=== PATIENT | female | born 1945 | race Native Hawaiian/Other Pacific Islander ===

== ENCOUNTER 2016-12-12 15:26 | Emergency (ER) | payer MEDICARE ==
--- NOTE | 2016-12-12 16:43 | Emergency Department Report ---
Entered by MADDISON NOLAND, acting as scribe for MARY MCNEAL PA. Chief Complaint: Extremity Injury, Lower Stated Complaint: PAIN SEVERE PAIN IN BOTTOM LT FOOT/ANKLE/ DIABETIC Time Seen by Provider: 12/12/16 16:10 - HPI History of Present Illness: 71 y/o female presents c/o pain in the left foot that started 2 days ago. No associated Sx. Pt has been limping around, but notes no trauma to the area. - ROS Review of Systems: noted in HPI - Exam Vital Signs: Vital Signs 12/12/16 15:59 Temperature 98.4 F Pulse Rate 65 Respiratory 18 Rate Blood Pressure 203/70 O2 Sat by Pulse 98 Oximetry Physical Exam: General: 71-year-old female in no acute distress. Well-developed, well- nourished. CV: Regular rate and rhythm. Lungs: Clear to auscultation bilaterally. Left Foot: Tenderness to palpation of plantar aspect of mid foot. No deformity, erythema, edema noted. MSE screening note: Focused history and physical exam performed. Due to findings the following was ordered: ED Disposition for MSE Condition: Stable This documentation as recorded by the scribe,MADDISON NOLAND,accurately reflects the service I personally performed and the decisions made by ,MARY MCNEAL PA.
--- NOTE | 2016-12-12 18:24 | XRay Report ---
FINAL REPORT EXAM: XR FOOT 3 LT HISTORY: LT FOOT PAIN TECHNIQUE: AP, lateral, and oblique views of the left foot PRIORS: None. FINDINGS: There is no evidence for acute fracture or dislocation. No soft tissue swelling or radiopaque foreign bodies are seen. Bony mineralization is normal. Joint spaces are maintained. Large spurs are present along the plantar and posterior surfaces of the calcaneus. There also soft tissue calcification around the head of the 1st metatarsal, likely due to remote tendon trauma IMPRESSION: No acute soft tissue or bony abnormality noted.
[2016-12-12] MEDS ORDERED: CATAPRES PO ONE (19:15)
[2016-12-12 21:27] VITALS: BP 168/65
--- NOTE | 2016-12-12 21:31 | Emergency Department Report ---
Entered by MADDISON NOLAND, acting as scribe for MARY MCNEAL PA. ED Extremity Problem HPI - General Chief complaint: Extremity Injury, Lower Stated complaint: PAIN SEVERE PAIN IN BOTTOM LT FOOT/ANKLE/ DIABETIC Time Seen by Provider: 12/12/16 16:43 Source: patient Mode of arrival: Ambulatory Limitations: Other - History of Present Illness Initial comments: 71 y/o female (deaf, accompanied by daughter for communication) presents today c /o 6/10 constant, achy pain in the left foot that started 2 days ago. Pain is worsened by pressure. She notes no additional Sx. Pt has been limping around, but states there was no trauma to the left foot. Denies fever, chills, nausea, vomiting, chest pain, shortness of breath, abdominal pain. She notes taking no medication. No Hx of previous injuries to left foot. No additional Sx MD Complaint: extremity pain (left foot) -: days(s) (2) Location: left (foot) History of Same: No -: No fever Severity scale (0 -10): 6 Quality: aching Consistency: constant Improves with: nothing Worsens with: other (pressure) Associated Symptoms: denies other symptoms - Related Data Previous Rx's Medication Instructions Recorded Last Taken Type Azithromycin [Zithromax Z-SWATI] 250 mg PO DAILY #6 tablet 10/05/13 Unknown Rx Naproxen [Naprosyn] 500 mg PO BID #30 tablet 12/12/16 Unknown Rx Allergies Allergy/AdvReac Type Severity Reaction Status Date / Time No Known Allergies Allergy Unverified 10/04/13 18:50 ED Review of Systems Comment: All other systems reviewed and negative Constitutional: denies: chills, fever, malaise Eyes: denies: eye pain ENT: denies: ear pain, throat pain, congestion Respiratory: denies: cough, shortness of breath, wheezing Cardiovascular: denies: chest pain Endocrine: no symptoms reported Gastrointestinal: denies: abdominal pain, nausea, vomiting Neurological: denies: headache, weakness, numbness, paresthesias ED Past Medical Hx - Past Medical History Previous Medical History?: Yes Hx Hypertension: Yes Hx Diabetes: Yes - Surgical History Past Surgical History?: Yes Additional Surgical History: Hysterectomy - Social History Smoking Status: Never Smoker Substance Use Type: Non Opiate Pain, Prescribed - Medications Home Medications: Home Medications Medication Instructions Recorded Confirmed Last Taken Type Azithromycin [Zithromax Z-SWATI] 250 mg PO DAILY #6 tablet 10/05/13 Unknown Rx Naproxen [Naprosyn] 500 mg PO BID #30 tablet 12/12/16 Unknown Rx ED Physical Exam - General Limitations: Other - Other Other exam information: GENERAL: The patient is well-developed and well-nourished. Patient is in NAD. HEAD: Normocephalic. Atraumatic. CHEST/LUNGS: Clear to auscultation throughout. HEART/CARDIOVASCULAR: Regular rate and rhythm. No murmurs, rubs or gallops. ABDOMEN: Abdomen is soft, nontender. No guarding or rebound tenderness. Left Foot: Tenderness to palpation of plantar aspect of mid foot. No deformity, erythema, edema noted. Full range of motion of ankle and digits. Peripheral pulses intact. Capillary refill less than 2 seconds. NEURO: Alert and oriented x 3. ED Course Vital Signs 12/12/16 12/12/16 12/12/16 15:59 16:24 19:32 Temperature 98.4 F Pulse Rate 65 112 H 57 L Respiratory 18 Rate Blood Pressure 203/70 202/63 Blood Pressure 188/64 [Left] O2 Sat by Pulse 98 Oximetry 12/12/16 12/12/16 20:54 21:25 Temperature 98.1 F 98.1 F Pulse Rate 53 L 60 Respiratory 18 18 Rate Blood Pressure Blood Pressure 172/65 168/65 [Left] O2 Sat by Pulse 97 98 Oximetry ED Medical Decision Making - Lab Data Vital Signs 12/12/16 12/12/16 12/12/16 15:59 16:24 19:32 Temperature 98.4 F Pulse Rate 65 112 H 57 L Respiratory 18 Rate Blood Pressure 203/70 202/63 Blood Pressure 188/64 [Left] O2 Sat by Pulse 98 Oximetry 12/12/16 12/12/16 20:54 21:25 Temperature 98.1 F 98.1 F Pulse Rate 53 L 60 Respiratory 18 18 Rate Blood Pressure Blood Pressure 172/65 168/65 [Left] O2 Sat by Pulse 97 98 Oximetry Daughter states that the patient's blood pressure remains quite elevated lately and she has a follow-up appointment with her primary care provider in 10 days. Emphasized the importance of follow-up. - Radiology Data Radiology results: report reviewed EXAM: XR FOOT 3 LT HISTORY: LT FOOT PAIN TECHNIQUE: AP, lateral, and oblique views of the left foot PRIORS: None. FINDINGS: There is no evidence for acute fracture or dislocation. No soft tissue swelling or radiopaque foreign bodies are seen. Bony mineralization is normal. Joint spaces are maintained. Large spurs are present along the plantar and posterior surfaces of the calcaneus. There also soft tissue calcification around the head of the 1st metatarsal, likely due to remote tendon trauma IMPRESSION: No acute soft tissue or bony abnormality noted. - Medical Decision Making 71 y/o female presents c/o constant, achy pain in the left foot that started 2 days ago. Her x-ray results revealed no acute soft tissue or bony abnormality. Large spurs are present along the plantar and posterior surfaces of the calcaneus. There also soft tissue calcification around the head of the first metatarsal, likely due to remote tendon trauma. She has been provided with a referral for orthopedic. Patient is in no acute distress at this time. She will be discharged home and is encouraged to follow up with a primary care provider. She will be sent home on naproxen and is encouraged to return to the emergency room for any worsening symptoms. Emphasized the importance of follow up with primary care physician and explained to patient/family that uncontrolled hypertension can lead to long- term complications of hypertension/elevated blood pressure including stroke, heart attack, disability, , paralysis, permanent loss of quality of life. Patient/family expressed understanding. ED Disposition Clinical Impression: Foot pain Qualifiers: Laterality: right Qualified Code(s): M79.671 - Pain in right foot HTN (hypertension) Qualifiers: Hypertension type: essential hypertension Qualified Code(s): I10 - Essential ( primary) hypertension Disposition: DISCHARGED TO HOME OR SELFCARE Is pt being admited?: No Does the pt Need Aspirin: No Condition: Stable Instructions: Plantar Fasciitis (ED), Foot Sprain (ED), Hypertension (ED) Additional Instructions: Follow-up with primary care provider and orthopedic. Return to the emergency department if symptoms worsen. Prescriptions: Naproxen [Naprosyn] 500 mg PO BID #30 tablet Referrals: RADHA ALFONSO MD [Primary Care Provider] - 3-5 Days ESTER LOVE MD [Staff Physician] - 3-5 Days Forms: Work/School Release Form(ED) Time of Disposition: 18:54 This documentation as recorded by the scribe,NUZHAT,MADDISON,accurately reflects the service I personally performed and the decisions made by ,MARY MCNEAL PA.
== END 2016-12-12 21:38 | disposition home or self-care (01) ==
LOC: ED 15:26
DX: M79.671 Pain in right foot (principal); I10 Essential (primary) hypertension; E11.9 Type 2 diabetes mellitus without complications; Z90.710 Acquired absence of both cervix and uterus

== ENCOUNTER 2017-08-03 06:47 | Inpatient (IN) | payer MEDICARE ==
[2017-08-03 08:01] LABS: Basophils % (Auto) 0.4 % (0.0-1.8); Eosinophils % (Auto) 2.4 % (0.0-4.3); Hematocrit 41.8 % (30.3-42.9); Mean Corpuscular HGB Conc 34 % (30-34); Mean Corpuscular Hemoglobin 30 pg (28-32); Mean Corpuscular Volume 90 fl (79-97); Platelet Count 130 K/mm3 (140-440); Red Blood Count 4.65 M/mm3 (3.65-5.03); Red Cell Distribution Width 13.7 % (13.2-15.2); White Blood Count 4.9 K/mm3 (4.5-11.0)
[2017-08-03 08:02] LABS: Anion Gap 18 mmol/L; BUN/Creatinine Ratio 19; Blood Urea Nitrogen 15 mg/dL (7-17); Calcium 9.1 mg/dL (8.4-10.2); Carbon Dioxide 28 mmol/L (22-30); Chloride 98.1 mmol/L (98-107); Glucose 343 mg/dL (65-100); Potassium 4.1 mmol/L (3.6-5.0); Sodium 140 mmol/L (137-145)
[2017-08-03] MEDS ORDERED: NITROSTAT SL PRN (11:01)
[2017-08-03] MEDS ORDERED: NACL 0.9% 250ML 250 ML IV ONE (11:01)
--- NOTE | 2017-08-03 11:01 | Emergency Department Report ---
ED General Adult HPI - General Chief complaint: Chest Pain Stated complaint: CHEST PAIN Time Seen by Provider: 08/03/17 10:49 Source: family, RN notes reviewed Mode of arrival: Ambulatory Limitations: Other (the patient is deaf, she only speaks Faroese, cannot speaks sign language) - History of Present Illness Initial comments: Patient is accompanied by her daughter, who requests that she translated for the patient. Patient can only write in Faroese, and she is very hard of hearing. Patient does not speak sign language. Patient's daughter specifically declines toucher up, as she reports that she is really the only person who can communicate effectively with the patient. This is a 72-year-old female who was previously unknown to this provider. Her primary care doctor is Dr. Trevino, she has a history of hypertension and diabetes. The patient is brought to the hospital by her daughter for evaluation of chest pain. She started indicates the patient's chest pain is central. She is not sure if it radiates anywhere. She cannot describe exacerbating or relieving factors, with the exception of coughing which increases the chest pain. Patient's daughter reports no recent travel, no recent surgeries, no leg pain, no leg swelling. As far as the daughter knows, there is no vomiting, diaphoresis, or severe shortness of breath. No recent cardiac risk stratification as far as the daughter knows. -: days(s) Location: chest Radiation: other (per hpi) Severity scale (0 -10): 10 Consistency: other (per hpi) Improves with: other (per hpi) Worsens with: other (per hpi) Associated Symptoms: chest pain, cough. denies: nausea/vomiting, seizure - Related Data Home Medications Medication Instructions Recorded Confirmed Last Taken Lisinopril [Zestril TAB] 40 mg PO QDAY 08/03/17 08/03/17 08/02/17 Spironolactone [Aldactone] 25 mg PO QDAY 08/03/17 08/03/17 08/02/17 amLODIPine [Norvasc] 10 mg PO DAILY 08/03/17 08/03/17 08/02/17 glipiZIDE [Glipizide] 5 mg PO DAILY 08/03/17 08/03/17 08/02/17 Allergies Allergy/AdvReac Type Severity Reaction Status Date / Time No Known Allergies Allergy Unverified 10/04/13 18:50 ED Review of Systems ROS: Stated complaint: CHEST PAIN Other details as noted in HPI Comment: per daughter Constitutional: denies: fever Eyes: denies: eye discharge ENT: denies: congestion Respiratory: cough Cardiovascular: chest pain Gastrointestinal: denies: nausea Genitourinary: as per HPI Musculoskeletal: as per HPI Skin: as per HPI Neurological: as per HPI Psychiatric: as per HPI ED Past Medical Hx - Past Medical History Hx Hypertension: Yes Hx Diabetes: Yes - Surgical History Additional Surgical History: Hysterectomy - Social History Smoking Status: Never Smoker Substance Use Type: None - Medications Home Medications: Home Medications Medication Instructions Recorded Confirmed Last Taken Type Lisinopril [Zestril TAB] 40 mg PO QDAY 08/03/17 08/03/17 08/02/17 History Spironolactone [Aldactone] 25 mg PO QDAY 08/03/17 08/03/17 08/02/17 History amLODIPine [Norvasc] 10 mg PO DAILY 08/03/17 08/03/17 08/02/17 History glipiZIDE [Glipizide] 5 mg PO DAILY 08/03/17 08/03/17 08/02/17 History ED Physical Exam - General Limitations: Language Barrier General appearance: alert, in no apparent distress - Head Head exam: Present: atraumatic, normocephalic - Eye Eye exam: Present: normal appearance, EOMI - ENT ENT exam: Present: normal exam, normal orophraynx, mucous membranes moist, normal external ear exam - Neck Neck exam: Present: normal inspection, full ROM - Respiratory Respiratory exam: Present: normal lung sounds bilaterally. Absent: respiratory distress - Cardiovascular Cardiovascular Exam: Present: regular rate, normal rhythm, normal heart sounds. Absent: systolic murmur, diastolic murmur, rubs, gallop - GI/Abdominal GI/Abdominal exam: Present: soft, normal bowel sounds. Absent: distended, tenderness, guarding, rebound, rigid, pulsatile mass - Extremities Exam Extremities exam: Present: normal inspection, full ROM, normal capillary refill. Absent: pedal edema, joint swelling, calf tenderness - Back Exam Back exam: Present: normal inspection, full ROM. Absent: tenderness, CVA tenderness (R), paraspinal tenderness, vertebral tenderness - Neurological Exam Neurological exam: Present: alert, normal gait, other (Extraocular movements intact. Tongue midline. No facial droop. Facial sensation intact to light touch in the V1, V2, V3 distribution bilaterally. 5 and 5 strength in 4 extremities.. Sensation is intact to light touch in 4 extremities.). Absent: motor sensory deficit - Psychiatric Psychiatric exam: Present: normal affect, normal mood - Skin Skin exam: Present: warm, dry, intact, normal color. Absent: rash ED Course Vital Signs 08/03/17 08/03/17 08/03/17 06:57 07:00 07:03 Temperature 98.2 F 98.2 F 98.2 F Pulse Rate 55 L 55 L Respiratory 16 16 16 Rate Blood Pressure 193/60 193/60 Blood Pressure 193/60 [Right] O2 Sat by Pulse 98 98 Oximetry 08/03/17 11:14 Temperature 98.4 F Pulse Rate 68 Respiratory 16 Rate Blood Pressure Blood Pressure 117/53 [Right] O2 Sat by Pulse 98 Oximetry ED Medical Decision Making - Lab Data Result diagrams: 08/03/17 13:50 08/03/17 07:28 Vital Signs 08/03/17 08/03/17 08/03/17 06:57 07:00 07:03 Temperature 98.2 F 98.2 F 98.2 F Pulse Rate 55 L 55 L Respiratory 16 16 16 Rate Blood Pressure 193/60 193/60 Blood Pressure 193/60 [Right] O2 Sat by Pulse 98 98 Oximetry 08/03/17 11:14 Temperature 98.4 F Pulse Rate 68 Respiratory 16 Rate Blood Pressure Blood Pressure 117/53 [Right] O2 Sat by Pulse 98 Oximetry Lab Results 08/03/17 08/03/17 08/03/17 Range/Units 07:28 07:28 07:28 WBC 4.9 (4.5-11.0) K/mm3 RBC 4.65 (3.65-5.03) M/mm3 Hgb 14.0 (10.1-14.3) gm/dl Hct 41.8 (30.3-42.9) % MCV 90 (79-97) fl MCH 30 (28-32) pg MCHC 34 (30-34) % RDW 13.7 (13.2-15.2) % Plt Count 130 L (140-440) K/mm3 Lymph % (Auto) 19.7 (13.4-35.0) % [place] % (Auto) 5.7 (0.0-7.3) % Eos % (Auto) 2.4 (0.0-4.3) % Baso % (Auto) 0.4 (0.0-1.8) % Lymph # 1.0 L (1.2-5.4) K/mm3 [place] # 0.3 (0.0-0.8) K/mm3 Eos # 0.1 (0.0-0.4) K/mm3 Baso # 0.0 (0.0-0.1) K/mm3 Seg Neutrophils % 71.8 H (40.0-70.0) % Seg Neutrophils # 3.5 (1.8-7.7) K/mm3 D-Dimer (0-234) ng/mlDDU Sodium 140 (137-145) mmol/L Potassium 4.1 (3.6-5.0) mmol/L Chloride 98.1 (98-107) mmol/L Carbon Dioxide 28 (22-30) mmol/L Anion Gap 18 mmol/L BUN 15 (7-17) mg/dL Creatinine 0.8 (0.7-1.2) mg/dL Estimated GFR > 60 ml/min BUN/Creatinine Ratio 19 % Glucose 343 H (65-100) mg/dL POC Glucose (70-105) Calcium 9.1 (8.4-10.2) mg/dL Troponin T 0.012 (0.00-0.029) ng/mL NT-Pro-B Natriuret Pep 724.3 (0-900) pg/mL 08/03/17 08/03/17 08/03/17 Range/Units 10:18 12:00 13:13 WBC (4.5-11.0) K/mm3 RBC (3.65-5.03) M/mm3 Hgb (10.1-14.3) gm/dl Hct (30.3-42.9) % MCV (79-97) fl MCH (28-32) pg MCHC (30-34) % RDW (13.2-15.2) % Plt Count (140-440) K/mm3 Lymph % (Auto) (13.4-35.0) % [place] % (Auto) (0.0-7.3) % Eos % (Auto) (0.0-4.3) % Baso % (Auto) (0.0-1.8) % Lymph # (1.2-5.4) K/mm3 [place] # (0.0-0.8) K/mm3 Eos # (0.0-0.4) K/mm3 Baso # (0.0-0.1) K/mm3 Seg Neutrophils % (40.0-70.0) % Seg Neutrophils # (1.8-7.7) K/mm3 D-Dimer 215.42 (0-234) ng/mlDDU Sodium (137-145) mmol/L Potassium (3.6-5.0) mmol/L Chloride (98-107) mmol/L Carbon Dioxide (22-30) mmol/L Anion Gap mmol/L BUN (7-17) mg/dL Creatinine (0.7-1.2) mg/dL Estimated GFR ml/min BUN/Creatinine Ratio % Glucose (65-100) mg/dL POC Glucose 359 H (70-105) Calcium (8.4-10.2) mg/dL Troponin T 0.011 (0.00-0.029) ng/mL NT-Pro-B Natriuret Pep (0-900) pg/mL 08/03/17 08/03/17 Range/Units 13:50 13:54 WBC 6.1 (4.5-11.0) K/mm3 RBC 4.62 (3.65-5.03) M/mm3 Hgb 13.8 (10.1-14.3) gm/dl Hct 40.9 (30.3-42.9) % MCV 89 (79-97) fl MCH 30 (28-32) pg MCHC 34 (30-34) % RDW 14.0 (13.2-15.2) % Plt Count 140 (140-440) K/mm3 Lymph % (Auto) 18.0 (13.4-35.0) % [place] % (Auto) 5.9 (0.0-7.3) % Eos % (Auto) 1.4 (0.0-4.3) % Baso % (Auto) 0.5 (0.0-1.8) % Lymph # 1.1 L (1.2-5.4) K/mm3 [place] # 0.4 (0.0-0.8) K/mm3 Eos # 0.1 (0.0-0.4) K/mm3 Baso # 0.0 (0.0-0.1) K/mm3 Seg Neutrophils % 74.2 H (40.0-70.0) % Seg Neutrophils # 4.5 (1.8-7.7) K/mm3 D-Dimer (0-234) ng/mlDDU Sodium (137-145) mmol/L Potassium (3.6-5.0) mmol/L Chloride (98-107) mmol/L Carbon Dioxide (22-30) mmol/L Anion Gap mmol/L BUN (7-17) mg/dL Creatinine (0.7-1.2) mg/dL Estimated GFR ml/min BUN/Creatinine Ratio % Glucose (65-100) mg/dL POC Glucose 194 H (70-105) Calcium (8.4-10.2) mg/dL Troponin T (0.00-0.029) ng/mL NT-Pro-B Natriuret Pep (0-900) pg/mL - EKG Data -: EKG Interpreted by Me - EKG Data 08/03/17 14:19 Sinus, 67 bpm, prolonged QTC, high left ventricular voltage, not morphologically consistent with ST elevation myocardial infarction, motion artifact noted in the lateral leads. - Radiology Data Radiology results: report reviewed, image reviewed CT scan of the chest is negative for pneumonia, pulmonary embolus, Significant findings - Medical Decision Making Differential diagnosis, including without limited to: Bronchitis, costochondritis, pneumonia, acute coronary syndrome, pulmonary embolus Assessment and plan: 72-year-old female with chest pain. History limited secondary to multiple issues. Therefore, it is difficult to cough lipase on the patient's story whether or not she is low risk by well's criteria, and whether or not she is low risk by heart score. Objectively speaking she is hypertensive with an abnormal EKG, and negative troponin. CT scan of the chest was negative. Troponin negative. Given her advanced age, medical comorbidities , uncertainty regarding clinical history, patient will be admitted for an acute coronary syndrome risk stratification. Patient presented to the Hospital physician, Dr. Peoples accept the patient to the hospital for cardiac or certification. Critical care attestation.: If time is entered above; I have spent that time in minutes in the direct care of this critically ill patient, excluding procedure time. ED Disposition Clinical Impression: Chest pain Disposition: DC OP ADMIT IP TO THIS HOSP Is pt being admited?: Yes Does the pt Need Aspirin: Yes Condition: Good
--- NOTE | 2017-08-03 12:16 | Cat Scan Report ---
CT angiography of the chest including 3-D reconstructed images. History: Chest pain. Findings: There is no evidence of pulmonary emboli. The lungs are clear. There is no pleural fluid. Impression: No evidence of pulmonary emboli or other significant findings.
--- NOTE | 2017-08-03 12:56 | History and Physical Report ---
History of Present Illness Chief complaint: Mom said her chest hurts History of present illness: 72 YO Female with HTN, DM presents to ED for evaluation. Pt is unable to provide history, but daughter is at bedside during exam and interview. As per daughter, patient has experienced pain in her chest for the past 2 days with worsening symptoms over the past 8 hours. Pain is 10/10, substernal, intermittent, worse with exertion, relieved with rest, not associated with shortness of breath, but is worsened with coughing. No reports of fever, chills , palpitations, NVD, Syncope, loss of bowel/bladder continence, prolonged travel /immobility, individual/family history of DVT/PE, prodective cough, or recent ill contacts. Pt seen and evaluated in ED and found to have symptoms consistent with suspected ACS. Pt daughter states that she is the only person who can effectively communicate with her mother. Past History Past Medical History: diabetes, hypertension Past Surgical History: hysterectomy Social history: , lives with family. denies: smoking, alcohol abuse, prescription drug abuse, IV drug use Family history: no significant family history (reviewed) Medications and Allergies Allergies Allergy/AdvReac Type Severity Reaction Status Date / Time No Known Allergies Allergy Unverified 10/04/13 18:50 Home Medications Medication Instructions Recorded Confirmed Last Taken Type Lisinopril [Zestril TAB] 40 mg PO QDAY 08/03/17 08/03/17 08/02/17 History Spironolactone [Aldactone] 25 mg PO QDAY 08/03/17 08/03/17 08/02/17 History amLODIPine [Norvasc] 10 mg PO DAILY 08/03/17 08/03/17 08/02/17 History glipiZIDE [Glipizide] 5 mg PO DAILY 08/03/17 08/03/17 08/02/17 History Active Meds: Active Medications Nitroglycerin (Nitrostat) 0.4 mg SL .Q5MIN PRN PRN Reason: Chest Pain Review of Systems Constitutional: no weight loss, no weight gain, no fever, no chills Ears, nose, mouth and throat: no ear pain, no ear discharge, no tinnitis, no decreased hearing, no nose pain, no nasal congestion, no nasal discharge Breasts: no change in shape, no swelling, no mass Cardiovascular: chest pain, no orthopnea, no palpitations, no rapid/irregular heart beat, no lightheadedness, no shortness of breath Respiratory: cough, no excessive sputum, no hemoptysis, no shortness of breath, no dyspnea on exertion Gastrointestinal: no abdominal pain, no nausea, no vomiting, no diarrhea, no constipation Genitourinary Female: no pelvic pain, no flank pain, no menorrhagia, no dysuria Rectal: no pain, no incontinence, no bleeding Musculoskeletal: no neck stiffness, no neck pain, no shooting arm pain, no arm numbness/tingling, no low back pain, no shooting leg pain Integumentary: no rash, no pruritis, no redness, no sores, no wounds, no jaundice Neurological: no transient paralysis, no paralysis, no weakness, no parathesias , no numbness, no tingling Psychiatric: no memory loss, no change in sleep habits, no sleep disturbances, no insomnia, no hypersomnia, no change in appetite Endocrine: no cold intolerance, no heat intolerance, no polyphagia, no excessive thirst, no polydipsia, no polyuria Hematologic/Lymphatic: no easy bruising, no easy bleeding Allergic/Immunologic: no urticaria, no allergic rhinitis, no wheezing Exam - Constitutional Vitals: Temp Pulse Resp BP Pulse Ox 98.4 F 68 16 117/53 98 08/03/17 11:14 08/03/17 11:14 08/03/17 11:14 08/03/17 11:14 08/03/17 11:14 General appearance: Present: mild distress - EENT Eyes: Present: PERRL ENT: hearing intact, clear oral mucosa - Neck Neck: Present: supple, normal ROM - Respiratory Respiratory effort: normal Respiratory: bilateral: CTA - Cardiovascular Heart Sounds: Present: S1 & S2. Absent: rub, click - Extremities Extremities: pulses symmetrical, No edema Peripheral Pulses: within normal limits - Abdominal General gastrointestinal: Present: soft, non-tender, non-distended, normal bowel sounds Female genitourinary: Present: normal - Integumentary Integumentary: Present: clear, warm, dry - Musculoskeletal Musculoskeletal: gait normal, strength equal bilaterally - Psychiatric Psychiatric: appropriate mood/affect, intact judgment & insight - Neurologic Neurologic: CNII-XII intact, moves all extremities Results - Labs CBC & Chem 7: 08/03/17 13:50 08/03/17 13:50 Labs: Abnormal lab results 08/03/17 08/03/17 08/03/17 Range/Units 07:28 07:28 12:00 Plt Count 130 L (140-440) K/mm3 Lymph # 1.0 L (1.2-5.4) K/mm3 Seg Neutrophils % 71.8 H (40.0-70.0) % Glucose 343 H (65-100) mg/dL POC Glucose 359 H (70-105) Assessment and Plan - Patient Problems (1) ACS (acute coronary syndrome) Current Visit: Yes Status: Suspected Plan to address problem: Chest Pain protocol: Serial cardiac enzymes, EKG, telemetry, echo, stress test, cardiology consult, oxygen, morphine for pain, nitro tabs, aspirin, (2) HTN (hypertension) Current Visit: Yes Status: Acute Plan to address problem: Monitor BP q shift, continue medical management. (3) Diabetes Current Visit: Yes Status: Acute Plan to address problem: ADA diet, insulin, accu check (4) DVT prophylaxis Current Visit: Yes Status: Acute
[2017-08-03] MEDS ORDERED: TYLENOL PO PRN (12:59)
[2017-08-03] MEDS ORDERED: PROVENTIL IH PRN (12:59)
[2017-08-03] MEDS ORDERED: MORPHINE IV PRN (12:59)
[2017-08-03] MEDS ORDERED: MILK OF MAGNESIA PO PRN (12:59)
[2017-08-03] MEDS ORDERED: DULCOLAX PR PRN (12:59)
[2017-08-03] MEDS ORDERED: ZOFRAN IV PRN (12:59)
[2017-08-03] MEDS ORDERED: SODIUM CHLORIDE FLUSH SYRINGE 10 ML IV PRN (12:59)
[2017-08-03] MEDS ORDERED: BABY ASPIRIN PO STA ×2 (12:59→14:19)
[2017-08-03 14:09] LABS: Basophils % (Auto) 0.5 % (0.0-1.8); Eosinophils % (Auto) 1.4 % (0.0-4.3); Hematocrit 40.9 % (30.3-42.9); Hemoglobin 13.8 gm/dl (10.1-14.3); Mean Corpuscular HGB Conc 34 % (30-34); Mean Corpuscular Hemoglobin 30 pg (28-32); Mean Corpuscular Volume 89 fl (79-97); Platelet Count 140 K/mm3 (140-440); Red Blood Count 4.62 M/mm3 (3.65-5.03); White Blood Count 6.1 K/mm3 (4.5-11.0)
[2017-08-03 14:22] LABS: Anion Gap 18 mmol/L; BUN/Creatinine Ratio 21; Blood Urea Nitrogen 15 mg/dL (7-17); Calcium 8.8 mg/dL (8.4-10.2); Carbon Dioxide 27 mmol/L (22-30); Glucose 183 mg/dL (65-100); Potassium 3.8 mmol/L (3.6-5.0); Sodium 141 mmol/L (137-145)
--- NOTE | 2017-08-03 15:58 | Consultation ---
History of Present Illness Consult date: 08/03/17 Requesting physician: CAMRON ALVARADO Consult reason: other ("acs") History of present illness: Pt is a 72 YO female with a past medical history significant for HTN and DM. Pt is previously unknown to our practice. Pt is hearing impaired and writes only Nepalese and is accompanied by her daughter, who requests that she translate for the patient. Pt presented with c/o chest pain for the past 6-7 days and SOB since this AM. Pt describes her chest pain as a nonexertional, nonradiating, midsternal and right-sided aching which is aggravated by palpation of the chest wall and by coughing. Pt's daughter also reports that for the past 1 week, the pt has had some difficulty eating and drinking - she develops "coughing spells" every time she tries to eat or drink. Pt denies any n/v, diaphoresis, dizziness or syncope. Pt denies any prior cardiac history or cardiac evaluation. Past History Past Medical History: diabetes, hypertension Social history: , lives with family. denies: smoking, alcohol abuse, prescription drug abuse Family history: no significant family history Medications and Allergies Allergies Allergy/AdvReac Type Severity Reaction Status Date / Time No Known Allergies Allergy Unverified 10/04/13 18:50 Home Medications Medication Instructions Recorded Confirmed Last Taken Type Lisinopril [Zestril TAB] 40 mg PO QDAY 08/03/17 08/03/17 08/02/17 History Spironolactone [Aldactone] 25 mg PO QDAY 08/03/17 08/03/17 08/02/17 History amLODIPine [Norvasc] 10 mg PO DAILY 08/03/17 08/03/17 08/02/17 History glipiZIDE [Glipizide] 5 mg PO DAILY 08/03/17 08/03/17 08/02/17 History Active Meds: Active Medications Acetaminophen (Tylenol) 650 mg PO Q4H PRN PRN Reason: Pain MILD(1-3)/Fever >100.5/SIMMONS Albuterol (Proventil) 2.5 mg IH Q4HRT PRN PRN Reason: Shortness Of Breath Bisacodyl (Dulcolax) 10 mg [place] QDAY PRN PRN Reason: Constipation unrelieved by MOM Famotidine (Pepcid) 20 mg PO BID BEAU Magnesium Hydroxide (Milk Of Magnesia) 30 ml PO Q4H PRN PRN Reason: Constipation Morphine Sulfate (Morphine) 1 mg IV Q4H PRN PRN Reason: Pain, Moderate (4-6) Nitroglycerin (Nitrostat) 0.4 mg SL .Q5MIN PRN PRN Reason: Chest Pain Ondansetron HCl (Zofran) 4 mg IV Q8H PRN PRN Reason: N/V unrelieved by Reglan Sodium Chloride (Sodium Chloride Flush Syringe 10 Ml) 10 ml IV PRN PRN PRN Reason: LINE FLUSH Review of Systems Constitutional: no weight loss, no weight gain, no fever, no chills, no sweats Ears, nose, mouth and throat: no ear pain, no nose pain, no sinus pressure, no sinus pain Cardiovascular: chest pain, shortness of breath, high blood pressure, no orthopnea, no palpitations, no rapid/irregular heart beat, no edema, no syncope , no lightheadedness, no dyspnea on exertion, no paroxysmal nocturnal dyspnea, no leg edema Respiratory: cough, shortness of breath, pain on inspiration, no cough with sputum, no dyspnea on exertion, no congestion, no wheezing Gastrointestinal: no abdominal pain, no nausea, no vomiting, no diarrhea, no constipation, no change in bowel habits Genitourinary Female: no pelvic pain, no flank pain, no dysuria, no urinary frequency, no urgency Musculoskeletal: no neck stiffness, no neck pain, no shooting arm pain, no arm numbness/tingling, no low back pain, no shooting leg pain, no leg numbness/ tingling, no redness of joints Integumentary: no rash, no pruritis, no redness, no sores, no wounds Neurological: no head injury, no paralysis, no weakness, no parathesias, no numbness, no tingling, no seizures, no syncope Psychiatric: no anxiety Endocrine: no cold intolerance, no heat intolerance Hematologic/Lymphatic: no easy bruising, no easy bleeding, no lymphadenopathy Allergic/Immunologic: no urticaria, no wheezing, no persistent infections Physical Examination Vital Signs Temp Resp BP 98.2 F 16 193/60 08/03/17 06:57 08/03/17 06:57 08/03/17 06:57 General appearance: no acute distress HEENT: Positive: PERRL, Normocephaly, Mucus Membranes Moist Neck: Positive: neck supple, trachea midline Cardiac: Positive: Reg Rate and Rhythm, S1/S2 Lungs: Positive: clear to auscultation Neuro: Positive: Grossly Intact Abdomen: Positive: Unremarkable, Soft, Active Bowel Sounds. Negative: Tender Skin: Positive: Clear. Negative: Rash, Wound Musculoskeletal: No Fluid Collection, No Pain, Normal Range of Motion Extremities: Absent: edema Results 08/03/17 13:50 08/03/17 13:50 CBC 08/03/17 08/03/17 Range/Units 07:28 13:50 WBC 4.9 6.1 (4.5-11.0) K/mm3 RBC 4.65 4.62 (3.65-5.03) M/mm3 Hgb 14.0 13.8 (10.1-14.3) gm/dl Hct 41.8 40.9 (30.3-42.9) % Plt Count 130 L 140 (140-440) K/mm3 Lymph # 1.0 L 1.1 L (1.2-5.4) K/mm3 [place] # 0.3 0.4 (0.0-0.8) K/mm3 Eos # 0.1 0.1 (0.0-0.4) K/mm3 Baso # 0.0 0.0 (0.0-0.1) K/mm3 Comprehensive Metabolic Panel 08/03/17 08/03/17 Range/Units 07:28 13:50 Sodium 140 141 (137-145) mmol/L Potassium 4.1 3.8 (3.6-5.0) mmol/L Chloride 98.1 100.0 (98-107) mmol/L Carbon Dioxide 28 27 (22-30) mmol/L BUN 15 15 (7-17) mg/dL Creatinine 0.8 0.7 (0.7-1.2) mg/dL Glucose 343 H 183 H (65-100) mg/dL Calcium 9.1 8.8 (8.4-10.2) mg/dL - Imaging and Cardiology Echo: pending EKG: report reviewed, image reviewed EKG interpretations - Telemetry EKG Rhythm: Sinus Rhythm - EKG Sinus rhythms and dysrhythmias: sinus rhythm Additional Comments: t-wave inversions in lateral leads, unchanged from prior ECG in 2013 Assessment and Plan Obtain echo. Proceed with lexiscan MPI stress test in AM. Consider GI consultation given pt's difficulty with PO intake for the past 1 week per pt's daughter. The patient has been seen in conjunction with Dr. Montes who agrees with the assessment and plan of care. - Patient Problems (1) Chest pain, atypical Current Visit: Yes Status: Acute (2) Diabetes Current Visit: Yes Status: Chronic (3) HTN (hypertension) Current Visit: Yes Status: Chronic (4) Abnormal ECG Current Visit: Yes Status: Chronic
[2017-08-03] MEDS ORDERED: D50W (25GM) Syringe IV PRN (18:13)
[2017-08-03] MEDS ORDERED: D50W (25GM) Vial IV PRN (19:00)
[2017-08-03] MEDS: PEPCID PO SCH (21:08)
[2017-08-03] MEDS: NOVOLOG SUB-Q SCH (23:00)
[2017-08-04] MEDS ORDERED: LEXISCAN IV ONE ×2 (08:24→09:00)
[2017-08-04] MEDS: NOVOLOG SUB-Q SCH ×4 (10:29→22:05)
--- NOTE | 2017-08-04 11:03 | Event Note ---
Date: 08/04/17 Patient off of the floor for stress test. Full consult to follow when pt is available, however will go ahead and order speech eval and modified barium swallow for c/o coughing with eating and drinking.
--- NOTE | 2017-08-04 11:43 | Progress Note ---
Assessment and Plan S/p lexiscan MPI stress test this AM which was negative for ischemia. Await echo. GI w/u in process. The patient has been seen in conjunction with Dr. Montes who agrees with the assessment and plan of care. - Patient Problems (1) Chest pain, atypical Current Visit: Yes Status: Acute (2) Diabetes Current Visit: Yes Status: Chronic (3) HTN (hypertension) Current Visit: Yes Status: Chronic (4) Abnormal ECG Current Visit: Yes Status: Chronic Subjective Date of service: 08/04/17 Principal diagnosis: atypical chest pain Interval history: pt for stress test today Objective Last Vital Signs Temp 98.4 F 08/04/17 08:56 Pulse 58 L 08/04/17 08:56 Resp 18 08/04/17 08:56 BP 168/43 08/04/17 08:56 Pulse Ox 95 08/04/17 10:00 - Physical Examination HEENT: Positive: PERRL, Normocephaly, Mucus Membranes Moist Neck: Positive: neck supple, trachea midline Cardiac: Positive: Reg Rate and Rhythm, S1/S2 Lungs: Positive: clear to auscultation Neuro: Positive: Grossly Intact Abdomen: Positive: Unremarkable, Soft, Active Bowel Sounds. Negative: Tender Skin: Positive: Clear. Negative: Rash, Wound Musculoskeletal: No Fluid Collection, No Pain, Normal Range of Motion Extremities: Absent: edema - Labs and Meds CBC 08/03/17 Range/Units 13:50 WBC 6.1 (4.5-11.0) K/mm3 RBC 4.62 (3.65-5.03) M/mm3 Hgb 13.8 (10.1-14.3) gm/dl Hct 40.9 (30.3-42.9) % Plt Count 140 (140-440) K/mm3 Lymph # 1.1 L (1.2-5.4) K/mm3 [place] # 0.4 (0.0-0.8) K/mm3 Eos # 0.1 (0.0-0.4) K/mm3 Baso # 0.0 (0.0-0.1) K/mm3 Comprehensive Metabolic Panel 08/03/17 Range/Units 13:50 Sodium 141 (137-145) mmol/L Potassium 3.8 (3.6-5.0) mmol/L Chloride 100.0 (98-107) mmol/L Carbon Dioxide 27 (22-30) mmol/L BUN 15 (7-17) mg/dL Creatinine 0.7 (0.7-1.2) mg/dL Glucose 183 H (65-100) mg/dL Calcium 8.8 (8.4-10.2) mg/dL - Imaging and Cardiology EKG: report reviewed, image reviewed Pharmacologic stress test: pending Echo: pending - EKG Sinus rhythms and dysrhythmias: sinus rhythm
[2017-08-04] MEDS ORDERED: PNEUMOVAX 23 IM ONE (12:00)
[2017-08-04] MEDS: PEPCID PO SCH ×2 (13:01→22:04)
--- NOTE | 2017-08-04 17:03 | Progress Note ---
Assessment and Plan Assessment and plan: Patient is 72-year-old woman with hypertension and type 2 diabetes mellitus who presents with chest pain. -Atypical chest pain most likely related to GERD: Treat with PPI -Dysphagia or odynophagia: Consult GI, modified barium swallow pending tomorrow -Type 2 diabetes mellitus, uncontrolled hyperglycemia: Sliding scale insulin and diabetic diet -Accelerated hypertension: Low-salt diet, when necessary antihypertensive History Interval history: Patient was seen and examined. Follow-up on current diagnosis. Overnight uneventful. Patient denies shortness breath, nausea/vomiting or severe headaches. Imaging, nursing note, chart, labs and old chart reviewed. Discussed with patient. Daughter Carri at bedside was the software developer intern. Patient has chronic chest pain despite a negative stress test. She has trouble swallowing Hospitalist Physical - Physical exam Narrative exam: GEN: WDWN, NAD, AWAKE, ALERT, ORIENTATED 3 HEENT: NCAT, EOMI, PERRL, OP Clear NECK: supple, no adenopathy, no thyromegaly, no JVD CVS/HEART: RRR, NORMAL S1S2, NO JVD, pulses present bilaterally CHEST/LUNGS: CTA B, Symmetrical chest expansion, good air entry bilaterally GI/Abdomen: soft, NTND, good bowel sounds, no guarding or rebound /Bladder: no suprapubic tenderness, no CVA or paraspinal tenderness EXT/Skin: no c/c/e, no obvious rash MSK: FROM x 4 Neuro: CN 2-12 grossly intact except deafness, no new focal deficits Psych: calm - Constitutional Vitals: Temp Pulse Resp BP Pulse Ox 98.4 F 79 18 186/76 95 08/04/17 08:56 08/04/17 09:06 08/04/17 08:56 08/04/17 09:06 08/04/17 10:00 General appearance: Present: no acute distress Results - Labs CBC & Chem 7: 08/03/17 13:50 08/03/17 13:50 Labs: Laboratory Last Values WBC 6.1 K/mm3 (4.5-11.0) 08/03/17 13:50 RBC 4.62 M/mm3 (3.65-5.03) 08/03/17 13:50 Hgb 13.8 gm/dl (10.1-14.3) 08/03/17 13:50 Hct 40.9 % (30.3-42.9) 08/03/17 13:50 MCV 89 fl (79-97) 08/03/17 13:50 MCH 30 pg (28-32) 08/03/17 13:50 MCHC 34 % (30-34) 08/03/17 13:50 RDW 14.0 % (13.2-15.2) 08/03/17 13:50 Plt Count 140 K/mm3 (140-440) 08/03/17 13:50 Lymph % (Auto) 18.0 % (13.4-35.0) 08/03/17 13:50 [place] % (Auto) 5.9 % (0.0-7.3) 08/03/17 13:50 Eos % (Auto) 1.4 % (0.0-4.3) 08/03/17 13:50 Baso % (Auto) 0.5 % (0.0-1.8) 08/03/17 13:50 Lymph # 1.1 K/mm3 (1.2-5.4) L 08/03/17 13:50 [place] # 0.4 K/mm3 (0.0-0.8) 08/03/17 13:50 Eos # 0.1 K/mm3 (0.0-0.4) 08/03/17 13:50 Baso # 0.0 K/mm3 (0.0-0.1) 08/03/17 13:50 Seg Neutrophils % 74.2 % (40.0-70.0) H 08/03/17 13:50 Seg Neutrophils # 4.5 K/mm3 (1.8-7.7) 08/03/17 13:50 D-Dimer 215.42 ng/mlDDU (0-234) 08/03/17 13:13 Sodium 141 mmol/L (137-145) 08/03/17 13:50 Potassium 3.8 mmol/L (3.6-5.0) 08/03/17 13:50 Chloride 100.0 mmol/L (98-107) 08/03/17 13:50 Carbon Dioxide 27 mmol/L (22-30) 08/03/17 13:50 Anion Gap 18 mmol/L 08/03/17 13:50 BUN 15 mg/dL (7-17) 08/03/17 13:50 Creatinine 0.7 mg/dL (0.7-1.2) 08/03/17 13:50 Estimated GFR > 60 ml/min 08/03/17 13:50 BUN/Creatinine Ratio 21 % 08/03/17 13:50 Glucose 183 mg/dL (65-100) H 08/03/17 13:50 POC Glucose 351 (70-105) H 08/03/17 22:09 Calcium 8.8 mg/dL (8.4-10.2) 08/03/17 13:50 Troponin T 0.013 ng/mL (0.00-0.029) 08/03/17 20:35 NT-Pro-B Natriuret Pep 724.3 pg/mL (0-900) 08/03/17 07:28
--- NOTE | 2017-08-05 01:18 | Treadmill Report ---
LEXISCAN STRESS TEST REASON FOR STUDY: Chest pain. STRESS TEST PROTOCOL: The patient received 0.4 mg of Lexiscan intravenously over 10 seconds. Technetium-99m tetrofosmin was subsequently injected. Baseline EKG, normal sinus rhythm, ST segment and T-wave abnormalities. Consider lateral ischemia. Lexiscan EKG, no significant change from baseline. No chest pain. No arrhythmias. IMPRESSION: Nondiagnostic due to baseline EKG abnormalities. Nuclear imaging report to follow. JOB# [id number] KAYLEN/NTS
--- NOTE | 2017-08-05 02:55 | Treadmill Report ---
THALLIUM REPORT REASON FOR STUDY: Chest pain. IMAGING PROTOCOL: The patient received Tc99m tetrofosmin for stress and rest imaging. Imaging for all procedures was completed 30-90 minutes following the initial injection of Technetium 99m Tetrofosmin. SPECT imaging in the 180 degree arc was performed in the right anterior oblique projection. Computerized reconstruction of the images was performed for analysis. NUCLEAR IMAGING RESULTS: Normal left ventricular cavity size with no change from stress to rest. Distribution of radionuclide within the left ventricle revealed a small area of photo-induction involving the inferior wall. The degree of photo-induction is moderate. Rest imaging does not show any significant improvement in this defect. Gated SPECT imaging revealed normal global LV systolic function with no significant wall motion abnormalities. The calculated left ventricular ejection fraction is 66%. IMPRESSION: Small fixed inferior wall defect. Normal global LV systolic function with no significant wall motion abnormalities. EF 66%. These findings suggest a small area of prior infarction in the right coronary artery territory; however, the defect noted in this patient may also be artifactual. No evidence of significant stress-induced ischemia. [facility]# [id number] KAYLEN/NTS
[2017-08-05] MEDS: NOVOLOG SUB-Q SCH ×4 (09:18→21:31)
[2017-08-05] MEDS: PEPCID PO SCH (09:18)
--- NOTE | 2017-08-05 10:48 | Gastroenterology Consultation ---
History of Present Illness - Reason for Consult Consult date: 08/05/17 difficulty swallowing, CP Requesting physician: SAL FIGUEREDO - History of Present Illness Patient is a 72 y/o female with PMH of HTN and DM who was admitted for c/o CP. Cardiac evaluation was negative. GI has been consulted for c/o difficulty with swallowing and atypical CP. This morning pt was resting in bed w/o acute distress. Family at bedside. Pt is hearing impaired and writes only Palestinian, daughter used to translate. Pt c/o coughing with eating solids x 1 month. Admits to a hx of GERD with heartburn on average of 3x/week and regurgitation at HS. Takes OTC Gaviscon PRN w/o relief of symptoms. States CP is now improved. Denies wt loss, abd pain, N/V, dysphagia, odynophagia, signs of bleeding, or LGI symptoms. No NSAID use. No hx of PUD or previous EGD. Past History Past Medical History: diabetes, hypertension Past Surgical History: hysterectomy Social history: , lives with family. denies: smoking, alcohol abuse, prescription drug abuse Family history: no significant family history Medications and Allergies Allergies Allergy/AdvReac Type Severity Reaction Status Date / Time No Known Allergies Allergy Unverified 10/04/13 18:50 Home Medications Medication Instructions Recorded Confirmed Last Taken Type Lisinopril [Zestril TAB] 40 mg PO QDAY 08/03/17 08/03/17 08/02/17 History Spironolactone [Aldactone] 25 mg PO QDAY 08/03/17 08/03/17 08/02/17 History amLODIPine [Norvasc] 10 mg PO DAILY 08/03/17 08/03/17 08/02/17 History glipiZIDE [Glipizide] 5 mg PO DAILY 08/03/17 08/03/17 08/02/17 History Active Meds: Active Medications Acetaminophen (Tylenol) 650 mg PO Q4H PRN PRN Reason: Pain MILD(1-3)/Fever >100.5/SIMMONS Albuterol (Proventil) 2.5 mg IH Q4HRT PRN PRN Reason: Shortness Of Breath Bisacodyl (Dulcolax) 10 mg [place] QDAY PRN PRN Reason: Constipation unrelieved by MOM Dextrose (D50w (25gm) Vial) 25 gm IV PRN PRN PRN Reason: Hypoglycemia Famotidine (Pepcid) 20 mg PO BID [facility] Last Admin: 08/05/17 09:18 Dose: 20 mg Insulin Aspart (Novolog) 0 units SUB-Q ACHS BEAU PRN Reason: Protocol Last Admin: 08/05/17 09:18 Dose: 3 units Magnesium Hydroxide (Milk Of Magnesia) 30 ml PO Q4H PRN PRN Reason: Constipation Morphine Sulfate (Morphine) 1 mg IV Q4H PRN PRN Reason: Pain, Moderate (4-6) Nitroglycerin (Nitrostat) 0.4 mg SL .Q5MIN PRN PRN Reason: Chest Pain Ondansetron HCl (Zofran) 4 mg IV Q8H PRN PRN Reason: N/V unrelieved by Reglan Sodium Chloride (Sodium Chloride Flush Syringe 10 Ml) 10 ml IV PRN PRN PRN Reason: LINE FLUSH Review of Systems - Review of Systems All systems: negative Gastrointestinal: heartburn, other (coughing while eating) Exam - Constitutional Vital Signs: Temp Pulse Resp BP Pulse Ox 98.0 F 68 18 195/71 95 08/05/17 04:45 08/05/17 08:23 08/05/17 04:45 08/05/17 08:23 08/05/17 04:45 General appearance: no acute distress, well-nourished - EENT Eyes: PERRL, EOM intact ENT: hearing intact - Respiratory Respiratory: bilateral: CTA - Cardiovascular Rhythm: regular Heart Sounds: Present: S1 & S2 Extremities: No edema - Gastrointestinal General gastrointestinal: Present: soft, non-tender, non-distended, normal bowel sounds - Integumentary Integumentary: Present: warm, dry - Labs CBC & Chem 7: 08/03/17 13:50 08/03/17 13:50 Lab Results: Laboratory Results - last 24 hr 08/04/17 08/04/17 08/04/17 07:45 12:29 15:46 POC Glucose 257 H 300 H 347 H 08/04/17 20:27 POC Glucose 138 H Assessment and Plan 1.difficulty with PO intake (coughing while eating solids) 2.atypical CP- improved -speech eval pending -modified barium swallow pending for today -will start on daily PPI -will consider EGD based on results and progress -will follow
--- NOTE | 2017-08-05 11:27 | Progress Note ---
Assessment and Plan Echo reviewed with NAF. BILL w/u in process. Currently stable cardiac status. Pt may discharge home from cardiology standpoint. Follow up in our [place] office with Dr. Montes on 08/13/2017 @ 1:30PM. The patient has been seen in conjunction with Dr. Montes who agrees with the assessment and plan of care. - Patient Problems (1) Chest pain, atypical Current Visit: Yes Status: Acute (2) Diabetes Current Visit: Yes Status: Chronic (3) HTN (hypertension) Current Visit: Yes Status: Chronic (4) Abnormal ECG Current Visit: Yes Status: Chronic (5) Dysphagia Current Visit: Yes Status: Acute Subjective Date of service: 08/05/17 Principal diagnosis: atypical chest pain Interval history: pt with no current complaints. Objective Last Vital Signs Temp 98.0 F 08/05/17 04:45 Pulse 68 08/05/17 08:23 Resp 18 08/05/17 04:45 BP 195/71 08/05/17 08:23 Pulse Ox 95 08/05/17 04:45 - Physical Examination HEENT: Positive: PERRL, Normocephaly, Mucus Membranes Moist Neck: Positive: neck supple, trachea midline Cardiac: Positive: Reg Rate and Rhythm, S1/S2 Lungs: Positive: clear to auscultation Neuro: Positive: Grossly Intact Abdomen: Positive: Unremarkable, Soft, Active Bowel Sounds. Negative: Tender Skin: Positive: Clear. Negative: Rash, Wound Musculoskeletal: No Fluid Collection, No Pain, Normal Range of Motion Extremities: Absent: edema - Imaging and Cardiology EKG: report reviewed, image reviewed Echo: pending - EKG Sinus rhythms and dysrhythmias: sinus rhythm
[2017-08-05] MEDS ORDERED: PROTONIX IV SCH (12:00)
--- NOTE | 2017-08-05 15:11 | Progress Note ---
Assessment and Plan Assessment and plan: Patient is 72-year-old woman with hypertension and type 2 diabetes mellitus who presents with chest pain. -Atypical chest pain most likely related to GERD: Treat with PPI -Dysphagia or odynophagia: Consult GI, modified barium swallow pending tomorrow -Type 2 diabetes mellitus, uncontrolled hyperglycemia: Sliding scale insulin and diabetic diet -Accelerated hypertension: Low-salt diet, when necessary antihypertensive per GI: 1.difficulty with PO intake (coughing while eating solids) 2.atypical CP- improved -speech eval pending -modified barium swallow pending for today -will start on daily PPI -will consider EGD based on results and progress -will follow per Speech Pathology: Bedside swallowing evaluation was done. Pt. exhibits ? pharyngeal dysphagia with thin liquids by straw. Oral and pharyngeal phases of swallowing are WFL with regular food and thin liquids by cup, however due to family c/o difficulty swallowing and coughing during meal a modified barium swallow will be done tomorrow. Recommendations: 1. Regular diet with thin liquids by cup. 2. Maintain Aspiration Precautions 3. Modified Barium Swallow tomorrow 08/06 per Cardiology: Echo reviewed with NAF. GI w/u in process. Currently stable cardiac status. Pt may discharge home from cardiology standpoint. Follow up in our [place] office with Dr. Montes on 08/13/2017 @1:30PM. The patient has been seen in conjunction with Dr. Montes who agrees with the assessment and plan of care. Modified Barium Swallow tomorrow History Interval history: Patient was seen and examined. Follow-up on current diagnosis. Overnight uneventful. Patient denies shortness breath, nausea/vomiting or severe headaches. Imaging, nursing note, chart, labs and old chart reviewed. Discussed with patient. Daughter Carri at bedside was the utilities and maintenance supervisor. Patient has chronic chest pain despite a negative stress test. She has trouble swallowing Hospitalist Physical - Physical exam Narrative exam: GEN: WDWN, NAD, AWAKE, ALERT, ORIENTATED 3 HEENT: NCAT, EOMI, PERRL, OP Clear NECK: supple, no adenopathy, no thyromegaly, no JVD CVS/HEART: RRR, NORMAL S1S2, NO JVD, pulses present bilaterally CHEST/LUNGS: CTA B, Symmetrical chest expansion, good air entry bilaterally GI/Abdomen: soft, NTND, good bowel sounds, no guarding or rebound /Bladder: no suprapubic tenderness, no CVA or paraspinal tenderness EXT/Skin: no c/c/e, no obvious rash MSK: FROM x 4 Neuro: CN 2-12 grossly intact except deafness, no new focal deficits Psych: calm - Constitutional Vitals: Temp Pulse Resp BP Pulse Ox 98.2 F 53 L 18 178/46 95 08/05/17 12:51 08/05/17 12:51 08/05/17 12:51 08/05/17 12:51 08/05/17 12:51 General appearance: Present: no acute distress Results - Labs CBC & Chem 7: 08/03/17 13:50 08/03/17 13:50 Labs: Laboratory Last Values WBC 6.1 K/mm3 (4.5-11.0) 08/03/17 13:50 RBC 4.62 M/mm3 (3.65-5.03) 08/03/17 13:50 Hgb 13.8 gm/dl (10.1-14.3) 08/03/17 13:50 Hct 40.9 % (30.3-42.9) 08/03/17 13:50 MCV 89 fl (79-97) 08/03/17 13:50 MCH 30 pg (28-32) 08/03/17 13:50 MCHC 34 % (30-34) 08/03/17 13:50 RDW 14.0 % (13.2-15.2) 08/03/17 13:50 Plt Count 140 K/mm3 (140-440) 08/03/17 13:50 Lymph % (Auto) 18.0 % (13.4-35.0) 08/03/17 13:50 [place] % (Auto) 5.9 % (0.0-7.3) 08/03/17 13:50 Eos % (Auto) 1.4 % (0.0-4.3) 08/03/17 13:50 Baso % (Auto) 0.5 % (0.0-1.8) 08/03/17 13:50 Lymph # 1.1 K/mm3 (1.2-5.4) L 08/03/17 13:50 [place] # 0.4 K/mm3 (0.0-0.8) 08/03/17 13:50 Eos # 0.1 K/mm3 (0.0-0.4) 08/03/17 13:50 Baso # 0.0 K/mm3 (0.0-0.1) 08/03/17 13:50 Seg Neutrophils % 74.2 % (40.0-70.0) H 08/03/17 13:50 Seg Neutrophils # 4.5 K/mm3 (1.8-7.7) 08/03/17 13:50 D-Dimer 215.42 ng/mlDDU (0-234) 08/03/17 13:13 Sodium 141 mmol/L (137-145) 08/03/17 13:50 Potassium 3.8 mmol/L (3.6-5.0) 08/03/17 13:50 Chloride 100.0 mmol/L (98-107) 08/03/17 13:50 Carbon Dioxide 27 mmol/L (22-30) 08/03/17 13:50 Anion Gap 18 mmol/L 08/03/17 13:50 BUN 15 mg/dL (7-17) 08/03/17 13:50 Creatinine 0.7 mg/dL (0.7-1.2) 08/03/17 13:50 Estimated GFR > 60 ml/min 08/03/17 13:50 BUN/Creatinine Ratio 21 % 08/03/17 13:50 Glucose 183 mg/dL (65-100) H 08/03/17 13:50 POC Glucose 138 (70-105) H 08/04/17 20:27 Calcium 8.8 mg/dL (8.4-10.2) 08/03/17 13:50 Troponin T 0.013 ng/mL (0.00-0.029) 08/03/17 20:35 NT-Pro-B Natriuret Pep 724.3 pg/mL (0-900) 08/03/17 07:28
[2017-08-05] MEDS: NORVASC PO SCH (17:14)
[2017-08-05] MEDS: ALDACTONE PO SCH (17:14)
[2017-08-05] MEDS: GLUCOTROL PO SCH (17:15)
[2017-08-06] MEDS: NOVOLOG SUB-Q SCH ×4 (10:20→22:53)
--- NOTE | 2017-08-06 10:31 | Gastroenterology Progress Note ---
Assessment and Plan 1.difficulty with PO intake (coughing while eating solids) 2.atypical CP- improved -speech eval done-recommendations given for regular diet with thin liquids by cup -modified barium swallow pending for today -continue PPI -will consider EGD based on results and progress -will follow Subjective Date of service: 08/06/17 Principal diagnosis: atypical chest pain, difficulty swallowing Interval history: No distress or acute events overnight. Family at bedside. Pt tolerated eating breakfast w/o difficulty. Objective - Constitutional Vitals: Temp Pulse Resp BP Pulse Ox 97.9 F 63 18 157/64 96 08/06/17 08:41 08/06/17 10:19 08/06/17 08:41 08/06/17 08:41 08/06/17 08:41 General appearance: no acute distress - EENT Eyes: PERRL, EOM intact ENT: hearing intact - Respiratory Respiratory: bilateral: CTA - Cardiovascular Rhythm: regular Heart Sounds: Present: S1 & S2 - Gastrointestinal General gastrointestinal: Present: soft, tender (mild epigastic TTP), non- distended, normal bowel sounds - Integumentary Integumentary: Present: warm, dry - Neurologic Neurological: alert and oriented x3 - Labs CBC & Chem 7: 08/03/17 13:50 08/03/17 13:50 Labs: Laboratory Results - last 24 hr 08/05/17 08/05/17 08/05/17 08:11 11:42 16:10 POC Glucose 216 H 309 H 309 H 08/05/17 20:32 POC Glucose 248 H
[2017-08-06] MEDS: NORVASC PO SCH (11:05)
[2017-08-06] MEDS: GLUCOTROL PO SCH (11:05)
[2017-08-06] MEDS: PROTONIX PO SCH (11:05)
[2017-08-06] MEDS: ALDACTONE PO SCH (11:05)
[2017-08-06] MEDS: ZESTRIL PO SCH (11:05)
--- NOTE | 2017-08-06 14:41 | Fluoroscopy Report ---
MODIFIED BARIUM SWALLOW History: dysphagia. Findings: Video radiography was provided by the radiologist for speech therapy to assess the swallowing mechanism. Please refer to the formal report by speech therapy. Impression: Successful modified barium swallow.
--- NOTE | 2017-08-06 14:41 | Progress Note ---
Assessment and Plan Assessment and plan: Patient is 72-year-old woman with hypertension and type 2 diabetes mellitus who presents with chest pain. -Atypical chest pain most likely related to GERD: Treat with PPI -Dysphagia or odynophagia: Consult GI, modified barium swallow pending tomorrow -Type 2 diabetes mellitus, uncontrolled hyperglycemia: Sliding scale insulin and diabetic diet -Accelerated hypertension: Low-salt diet, when necessary antihypertensive per GI: 1.difficulty with PO intake (coughing while eating solids) 2.atypical CP- improved -speech eval pending -modified barium swallow pending for today -will start on daily PPI -will consider EGD based on results and progress -will follow per Speech Pathology: Bedside swallowing evaluation was done. Pt. exhibits ? pharyngeal dysphagia with thin liquids by straw. Oral and pharyngeal phases of swallowing are WFL with regular food and thin liquids by cup, however due to family c/o difficulty swallowing and coughing during meal a modified barium swallow will be done tomorrow. Recommendations: 1. Regular diet with thin liquids by cup. 2. Maintain Aspiration Precautions 3. Modified Barium Swallow tomorrow 08/06 per Cardiology: Echo reviewed with NAF. GI w/u in process. Currently stable cardiac status. Pt may discharge home from cardiology standpoint. Follow up in our [place] office with Dr. Montes on 08/13/2017 @1:30PM. The patient has been seen in conjunction with Dr. Montes who agrees with the assessment and plan of care. Modified Barium Swallow today New issue: cardiac pauses, I spoke with Dr. Montes today and he will came and evaluate. History Interval history: Patient was seen and examined. Follow-up on current diagnosis. Overnight eventful with cardiac pauses. Patient denies shortness breath, nausea/vomiting or severe headaches. Imaging, nursing note, chart, labs and old chart reviewed. Discussed with patient. Daughter Carri at bedside was the housekeeping associate. Patient has chronic chest pain despite a negative stress test. She has trouble swallowing Hospitalist Physical - Physical exam Narrative exam: GEN: WDWN, NAD, AWAKE, ALERT, ORIENTATED 3 HEENT: NCAT, EOMI, PERRL, OP Clear NECK: supple, no adenopathy, no thyromegaly, no JVD CVS/HEART: RRR, NORMAL S1S2, NO JVD, pulses present bilaterally CHEST/LUNGS: CTA B, Symmetrical chest expansion, good air entry bilaterally GI/Abdomen: soft, NTND, good bowel sounds, no guarding or rebound /Bladder: no suprapubic tenderness, no CVA or paraspinal tenderness EXT/Skin: no c/c/e, no obvious rash MSK: FROM x 4 Neuro: CN 2-12 grossly intact except deafness, no new focal deficits Psych: calm - Constitutional Vitals: Temp Pulse Resp BP Pulse Ox 97.9 F 63 18 157/64 96 08/06/17 08:41 08/06/17 10:19 08/06/17 08:41 08/06/17 08:41 08/06/17 08:41 General appearance: Present: no acute distress Results - Labs CBC & Chem 7: 08/03/17 13:50 08/03/17 13:50 Labs: Laboratory Last Values WBC 6.1 K/mm3 (4.5-11.0) 08/03/17 13:50 RBC 4.62 M/mm3 (3.65-5.03) 08/03/17 13:50 Hgb 13.8 gm/dl (10.1-14.3) 08/03/17 13:50 Hct 40.9 % (30.3-42.9) 08/03/17 13:50 MCV 89 fl (79-97) 08/03/17 13:50 MCH 30 pg (28-32) 08/03/17 13:50 MCHC 34 % (30-34) 08/03/17 13:50 RDW 14.0 % (13.2-15.2) 08/03/17 13:50 Plt Count 140 K/mm3 (140-440) 08/03/17 13:50 Lymph % (Auto) 18.0 % (13.4-35.0) 08/03/17 13:50 [place] % (Auto) 5.9 % (0.0-7.3) 08/03/17 13:50 Eos % (Auto) 1.4 % (0.0-4.3) 08/03/17 13:50 Baso % (Auto) 0.5 % (0.0-1.8) 08/03/17 13:50 Lymph # 1.1 K/mm3 (1.2-5.4) L 08/03/17 13:50 [place] # 0.4 K/mm3 (0.0-0.8) 08/03/17 13:50 Eos # 0.1 K/mm3 (0.0-0.4) 08/03/17 13:50 Baso # 0.0 K/mm3 (0.0-0.1) 08/03/17 13:50 Seg Neutrophils % 74.2 % (40.0-70.0) H 08/03/17 13:50 Seg Neutrophils # 4.5 K/mm3 (1.8-7.7) 08/03/17 13:50 D-Dimer 215.42 ng/mlDDU (0-234) 08/03/17 13:13 Sodium 141 mmol/L (137-145) 08/03/17 13:50 Potassium 3.8 mmol/L (3.6-5.0) 08/03/17 13:50 Chloride 100.0 mmol/L (98-107) 08/03/17 13:50 Carbon Dioxide 27 mmol/L (22-30) 08/03/17 13:50 Anion Gap 18 mmol/L 08/03/17 13:50 BUN 15 mg/dL (7-17) 08/03/17 13:50 Creatinine 0.7 mg/dL (0.7-1.2) 08/03/17 13:50 Estimated GFR > 60 ml/min 08/03/17 13:50 BUN/Creatinine Ratio 21 % 08/03/17 13:50 Glucose 183 mg/dL (65-100) H 08/03/17 13:50 POC Glucose 248 (70-105) H 08/05/17 20:32 Calcium 8.8 mg/dL (8.4-10.2) 08/03/17 13:50 Troponin T 0.013 ng/mL (0.00-0.029) 08/03/17 20:35 NT-Pro-B Natriuret Pep 724.3 pg/mL (0-900) 08/03/17 07:28
--- NOTE | 2017-08-06 15:39 | Progress Note ---
Assessment and Plan Obtain thyroid profile and BMP. Monitor overnight on telemetry with possible d/c in AM. The patient has been seen in conjunction with Dr. Montes who agrees with the assessment and plan of care. - Patient Problems (1) Chest pain, atypical Current Visit: Yes Status: Acute (2) Diabetes Current Visit: Yes Status: Chronic (3) HTN (hypertension) Current Visit: Yes Status: Chronic (4) Abnormal ECG Current Visit: Yes Status: Chronic (5) Dysphagia Current Visit: Yes Status: Acute (6) Sinus pause Current Visit: Yes Status: Acute Subjective Date of service: 08/06/17 Principal diagnosis: atypical chest pain, difficulty swallowing Interval history: pt with no current complaints. Called to re-evaluate pt d/t frequent 2-2.5 second sinus pauses noted on telemetry overnight. Pt currenly in SR with no pauses noted today on tele. Objective Last Vital Signs Temp 97.9 F 08/06/17 08:41 Pulse 63 08/06/17 10:19 Resp 18 08/06/17 08:41 BP 157/64 08/06/17 08:41 Pulse Ox 96 08/06/17 08:41 - Physical Examination HEENT: Positive: PERRL, Normocephaly, Mucus Membranes Moist Neck: Positive: neck supple, trachea midline Cardiac: Positive: Reg Rate and Rhythm, S1/S2 Lungs: Positive: clear to auscultation Neuro: Positive: Grossly Intact Abdomen: Positive: Unremarkable, Soft, Active Bowel Sounds. Negative: Tender Skin: Positive: Clear. Negative: Rash, Wound Musculoskeletal: No Fluid Collection, No Pain, Normal Range of Motion Extremities: Absent: edema - Imaging and Cardiology EKG: report reviewed, image reviewed Echo: pending - EKG Sinus rhythms and dysrhythmias: sinus rhythm
[2017-08-06 16:16] LABS: Anion Gap 20 mmol/L; BUN/Creatinine Ratio 22; Blood Urea Nitrogen 20 mg/dL (7-17); Calcium 8.7 mg/dL (8.4-10.2); Carbon Dioxide 24 mmol/L (22-30); Chloride 100.6 mmol/L (98-107); Glucose 390 mg/dL (65-100); Potassium 4.6 mmol/L (3.6-5.0); Sodium 140 mmol/L (137-145)
[2017-08-07] MEDS: NOVOLOG SUB-Q SCH ×2 (09:18→12:19)
--- NOTE | 2017-08-07 11:29 | Fluoroscopy Report ---
ESOPHAGRAM: 08/07/17 07:00:00 CLINICAL: Suspected Zenker's diverticulum. Difficulty swallowing. FINDINGS: Single and double contrast barium examinations were performed with the patient standing upright and in the prone oblique position. The quality of the examination is somewhat degraded by the limited ability to communicate with the patient who is deaf. Her daughter was in the room and assisted but it was difficult for her to follow instructions for the exam. A normal swallowing mechanism was observed. However, the patient aspirated a moderate volume of barium in her first swallows. Normal esophageal peristalsis and primary stripping wave. No evidence of mass, stricture or ulcer. No Zenker diverticulum identified. No hiatal hernia. Nogastroesophageal reflux. IMPRESSION: Normal study except for aspiration of barium. No Zenker diverticulum identified.
--- NOTE | 2017-08-07 12:36 | Progress Note ---
Assessment and Plan Assessment and plan: Patient is 72-year-old woman with hypertension and type 2 diabetes mellitus who presents with chest pain. -Atypical chest pain most likely related to GERD: Treat with PPI -Dysphagia or odynophagia: Consult GI, modified barium swallow pending tomorrow -Type 2 diabetes mellitus, uncontrolled hyperglycemia: Sliding scale insulin and diabetic diet -Accelerated hypertension: Low-salt diet, when necessary antihypertensive per GI: 1.difficulty with PO intake (coughing while eating solids) 2.atypical CP- improved -speech eval pending -modified barium swallow pending for today -will start on daily PPI -will consider EGD based on results and progress -will follow per Speech Pathology: Bedside swallowing evaluation was done. Pt. exhibits ? pharyngeal dysphagia with thin liquids by straw. Oral and pharyngeal phases of swallowing are WFL with regular food and thin liquids by cup, however due to family c/o difficulty swallowing and coughing during meal a modified barium swallow will be done tomorrow. Recommendations: 1. Regular diet with thin liquids by cup. 2. Maintain Aspiration Precautions 3. Modified Barium Swallow tomorrow 08/06 per Cardiology: Echo reviewed with NAF. GI w/u in process. Currently stable cardiac status. Pt may discharge home from cardiology standpoint. Follow up in our [place] office with Dr. Montes on 08/13/2017 @1:30PM. The patient has been seen in conjunction with Dr. Montes who agrees with the assessment and plan of care. Modified Barium Swallow today New issue: cardiac pauses, I spoke with Dr. Montes today and he will came and evaluate. per GI, Dr. Gordon: "I have personally interviewed and examined the patient. I agree with the below A/P. The patient (based on MBS) may have a Zenckers as well as oropharyngeal dysphagia (or Zencker's causing oropharyngeal dysphagia). Will get esophagram to confirm; EGD if needed to confirm the dx. Will need referral to surgery if present." The esophagram did not show Zenker. Possible d/c if cleared by GI History Interval history: Patient was seen and examined. Follow-up on current diagnosis. Overnight eventful with cardiac pauses. Patient denies shortness breath, nausea/vomiting or severe headaches. Imaging, nursing note, chart, labs and old chart reviewed. Discussed with patient. Daughter Carri at bedside was the cert occupational therapy asst. Patient has chronic chest pain despite a negative stress test. She has trouble swallowing Hospitalist Physical - Physical exam Narrative exam: GEN: WDWN, NAD, AWAKE, ALERT, ORIENTATED 3 HEENT: NCAT, EOMI, PERRL, OP Clear NECK: supple, no adenopathy, no thyromegaly, no JVD CVS/HEART: RRR, NORMAL S1S2, NO JVD, pulses present bilaterally CHEST/LUNGS: CTA B, Symmetrical chest expansion, good air entry bilaterally GI/Abdomen: soft, NTND, good bowel sounds, no guarding or rebound /Bladder: no suprapubic tenderness, no CVA or paraspinal tenderness EXT/Skin: no c/c/e, no obvious rash MSK: FROM x 4 Neuro: CN 2-12 grossly intact except deafness, no new focal deficits Psych: calm - Constitutional Vitals: Temp Pulse Resp BP Pulse Ox 97.9 F 83 18 146/65 93 08/07/17 03:59 08/07/17 05:00 08/07/17 03:59 08/07/17 03:59 08/07/17 03:59 General appearance: Present: no acute distress Results - Labs CBC & Chem 7: 08/03/17 13:50 08/06/17 15:44 Labs: Laboratory Last Values WBC 6.1 K/mm3 (4.5-11.0) 08/03/17 13:50 RBC 4.62 M/mm3 (3.65-5.03) 08/03/17 13:50 Hgb 13.8 gm/dl (10.1-14.3) 08/03/17 13:50 Hct 40.9 % (30.3-42.9) 08/03/17 13:50 MCV 89 fl (79-97) 08/03/17 13:50 MCH 30 pg (28-32) 08/03/17 13:50 MCHC 34 % (30-34) 08/03/17 13:50 RDW 14.0 % (13.2-15.2) 08/03/17 13:50 Plt Count 140 K/mm3 (140-440) 08/03/17 13:50 Lymph % (Auto) 18.0 % (13.4-35.0) 08/03/17 13:50 [place] % (Auto) 5.9 % (0.0-7.3) 08/03/17 13:50 Eos % (Auto) 1.4 % (0.0-4.3) 08/03/17 13:50 Baso % (Auto) 0.5 % (0.0-1.8) 08/03/17 13:50 Lymph # 1.1 K/mm3 (1.2-5.4) L 08/03/17 13:50 [place] # 0.4 K/mm3 (0.0-0.8) 08/03/17 13:50 Eos # 0.1 K/mm3 (0.0-0.4) 08/03/17 13:50 Baso # 0.0 K/mm3 (0.0-0.1) 08/03/17 13:50 Seg Neutrophils % 74.2 % (40.0-70.0) H 08/03/17 13:50 Seg Neutrophils # 4.5 K/mm3 (1.8-7.7) 08/03/17 13:50 D-Dimer 215.42 ng/mlDDU (0-234) 08/03/17 13:13 Sodium 140 mmol/L (137-145) 08/06/17 15:44 Potassium 4.6 mmol/L (3.6-5.0) D 08/06/17 15:44 Chloride 100.6 mmol/L (98-107) 08/06/17 15:44 Carbon Dioxide 24 mmol/L (22-30) 08/06/17 15:44 Anion Gap 20 mmol/L 08/06/17 15:44 BUN 20 mg/dL (7-17) H 08/06/17 15:44 Creatinine 0.9 mg/dL (0.7-1.2) 08/06/17 15:44 Estimated GFR > 60 ml/min 08/06/17 15:44 BUN/Creatinine Ratio 22 % 08/06/17 15:44 Glucose 390 mg/dL (65-100) H 08/06/17 15:44 POC Glucose 237 (70-105) H 08/07/17 12:07 Calcium 8.7 mg/dL (8.4-10.2) 08/06/17 15:44 Troponin T 0.013 ng/mL (0.00-0.029) 08/03/17 20:35 NT-Pro-B Natriuret Pep 724.3 pg/mL (0-900) 08/03/17 07:28 TSH 2.110 mlU/mL (0.270-4.200) 08/06/17 15:50 Free T4 1.15 ng/dL (0.76-1.46) 08/06/17 15:49
--- NOTE | 2017-08-07 12:39 | Discharge Summary ---
Providers - Providers Date of Admission: 08/03/17 13:00 Date of discharge: 08/07/17 Attending physician: SAL FIGUEREDO 08/03/17 Consult to Cardiac Rehabilitation [CONS] Routine Reason For Exam: Phase I 08/03/17 13:00 Consult to Cardiology [CONS] Routine Consulting Provider: JONATHAN FRAIRE Reason For Exam: acs 08/03/17 18:13 Consult to Dietitian/Nutrition [CONS] Routine Physician Instructions: Reason For Exam: Reason for Consult: Diet education 08/04/17 09:30 Consult to Physician [CONS] Routine Consulting Provider: ALDA UNDERWOOD Reason For Exam: difficulty swallowing, chest pains Place consult to:: Dr. Tim Underwood Notified:: Kimberli VIDAL Phone number called:: Was contact made?: Yes If yes, spoke with:: [facility] Time called:: 09:52 08/04/17 11:00 Speech Therapy Evaluation and Treat [CONS] Routine Reason For Exam: coughing with eating Hospitalization Condition: Stable Hospital course: Patient is 72-year-old woman with hypertension and type 2 diabetes mellitus who presents with chest pain. -Atypical chest pain most likely related to GERD: Treat with PPI -Dysphagia or odynophagia: Consult GI, modified barium swallow pending tomorrow -Type 2 diabetes mellitus, uncontrolled hyperglycemia: Sliding scale insulin and diabetic diet -Accelerated hypertension: Low-salt diet, when necessary antihypertensive per GI: 1.difficulty with PO intake (coughing while eating solids) 2.atypical CP- improved -speech eval pending -modified barium swallow pending for today -will start on daily PPI -will consider EGD based on results and progress -will follow per Speech Pathology: Bedside swallowing evaluation was done. Pt. exhibits ? pharyngeal dysphagia with thin liquids by straw. Oral and pharyngeal phases of swallowing are WFL with regular food and thin liquids by cup, however due to family c/o difficulty swallowing and coughing during meal a modified barium swallow will be done tomorrow. Recommendations: 1. Regular diet with thin liquids by cup. 2. Maintain Aspiration Precautions 3. Modified Barium Swallow tomorrow 08/06 per Cardiology: Echo reviewed with NAF. GI w/u in process. Currently stable cardiac status. Pt may discharge home from cardiology standpoint. Follow up in our [place] office with Dr. Fraire on 08/13/2017 @1:30PM. The patient has been seen in conjunction with Dr. Fraire who agrees with the assessment and plan of care. Modified Barium Swallow today New issue: cardiac pauses, I spoke with Dr. Fraire today and he will came and evaluate. per GI, Dr. Gordon: "I have personally interviewed and examined the patient. I agree with the below A/P. The patient (based on MBS) may have a Zenckers as well as oropharyngeal dysphagia (or Zencker's causing oropharyngeal dysphagia). Will get esophagram to confirm; EGD if needed to confirm the dx. Will need referral to surgery if present." The esophagram did not show Zenker. Possible d/c if cleared by GI Disposition: DC-01 TO HOME OR SELFCARE Time spent for discharge: 35 minutes Core Measure Documentation - Palliative Care Palliative Care/ Comfort Measures: Not Applicable - Core Measures Any of the following diagnoses?: none - VTE Discharge Requirements Deep Vein Thrombosis/Pulmonary Embolism Present on Admission: No Has pt received <5 days of overlap therapy or INR<2.0: No Anticoagulant overlap therapy prescribed at discharge: No Contraindication No Overlap Therapy order at DC: Not Indicated Exam - Physical Exam Narrative exam: GEN: WDWN, NAD, AWAKE, ALERT, ORIENTATED 3 HEENT: NCAT, EOMI, PERRL, OP Clear NECK: supple, no adenopathy, no thyromegaly, no JVD CVS/HEART: RRR, NORMAL S1S2, NO JVD, pulses present bilaterally CHEST/LUNGS: CTA B, Symmetrical chest expansion, good air entry bilaterally GI/Abdomen: soft, NTND, good bowel sounds, no guarding or rebound /Bladder: no suprapubic tenderness, no CVA or paraspinal tenderness EXT/Skin: no c/c/e, no obvious rash MSK: FROM x 4 Neuro: CN 2-12 grossly intact except deafness, no new focal deficits Psych: calm - Constitutional Vitals: Temp Pulse Resp BP Pulse Ox 97.9 F 83 18 146/65 93 08/07/17 03:59 08/07/17 05:00 08/07/17 03:59 08/07/17 03:59 08/07/17 03:59 Plan Activity: other Diet: low salt, diabetic, advance as tolerated Follow up with: MONAE OTERO [Other] - 3-5 Days ALDA UNDERWOOD MD [Staff Physician] - 7 Days JONATHAN FRAIRE MD [Staff Physician] - 14 Days
--- NOTE | 2017-08-07 12:58 | Progress Note ---
Assessment and Plan Her cardiac status appears stable. She may be discharged home from a cardiac standpoint. Add hydralazine 50 mg twice a day to her regimen. She may follow- up with me at my office in one to 2 weeks. - Patient Problems (1) Atypical chest pain Current Visit: Yes Status: Resolved (2) Dysphagia Current Visit: Yes Status: Acute (3) Sinus pause Current Visit: Yes Status: Acute (4) Abnormal ECG Current Visit: Yes Status: Acute (5) HTN (hypertension) Current Visit: Yes Status: Chronic Qualifiers: Hypertension type: essential hypertension Qualified Code(s): I10 - Essential (primary) hypertension (6) Diabetes Current Visit: Yes Status: Chronic Qualifiers: Diabetes mellitus type: type 2 Subjective Date of service: 08/07/17 Principal diagnosis: atypical chest pain, sinus pauses, difficulty swallowing Interval history: No new complaints. She has not demonstrated any significant pauses on the monitor overnight. Objective Vital Signs Temp Pulse Resp BP Pulse Ox 08/07/17 05:00 83 08/07/17 03:59 97.9 F 62 18 146/65 93 08/07/17 00:06 98.2 F 61 18 158/58 94 08/06/17 20:27 57 L 18 135/47 94 08/06/17 16:19 97.7 F 59 L 18 166/59 93 - Physical Examination General: No Apparent Distress HEENT: Positive: PERRL, Normocephaly, Mucus Membranes Moist Neck: Positive: neck supple, trachea midline Cardiac: Positive: Reg Rate and Rhythm, S1/S2 Lungs: Positive: clear to auscultation Neuro: Positive: Grossly Intact Abdomen: Positive: Unremarkable, Soft, Active Bowel Sounds. Negative: Tender Skin: Positive: Clear. Negative: Rash, Wound Musculoskeletal: Normal Range of Motion Extremities: Absent: edema - Labs and Meds Comprehensive Metabolic Panel 08/06/17 Range/Units 15:44 Sodium 140 (137-145) mmol/L Potassium 4.6 D (3.6-5.0) mmol/L Chloride 100.6 (98-107) mmol/L Carbon Dioxide 24 (22-30) mmol/L BUN 20 H (7-17) mg/dL Creatinine 0.9 (0.7-1.2) mg/dL Glucose 390 H (65-100) mg/dL Calcium 8.7 (8.4-10.2) mg/dL - Imaging and Cardiology EKG: image reviewed - EKG Sinus rhythms and dysrhythmias: sinus rhythm
--- NOTE | 2017-08-07 15:15 | Gastroenterology Progress Note ---
Assessment and Plan - Patient Problems (1) Dysphagia Current Visit: Yes Status: Acute Plan to address problem: The barium swallow revealed no Zenker's or other structural pathology. She had minor aspiration with the first swallow. The patient is stable GI juan for discharge today. Office f/u in a month is recommended. Subjective Date of service: 08/07/17 Principal diagnosis: difficulty swallowing Interval history: The reports that she has no discomfort Objective - Constitutional Vitals: Temp Pulse Resp BP Pulse Ox 97.9 F 83 18 146/65 93 08/07/17 03:59 08/07/17 05:00 08/07/17 03:59 08/07/17 03:59 08/07/17 03:59 General appearance: no acute distress - EENT ENT: other (hearing impaired) - Respiratory Respiratory effort: normal Respiratory: bilateral: CTA - Cardiovascular Rhythm: regular - Gastrointestinal General gastrointestinal: Present: soft, non-tender, non-distended, normal bowel sounds - Integumentary Integumentary: Present: clear, warm, dry - Neurologic Neurological: alert and oriented x3 - Labs CBC & Chem 7: 08/03/17 13:50 08/06/17 15:44 Labs: Laboratory Results - last 24 hr 08/06/17 08/06/17 08/06/17 08:45 11:55 15:44 Sodium 140 Potassium 4.6 D Chloride 100.6 Carbon Dioxide 24 Anion Gap 20 BUN 20 H Creatinine 0.9 Estimated GFR > 60 BUN/Creatinine Ratio 22 Glucose 390 H POC Glucose 250 H 310 H Calcium 8.7 TSH Free T4 08/06/17 08/06/17 08/06/17 15:49 15:50 16:23 Sodium Potassium Chloride Carbon Dioxide Anion Gap BUN Creatinine Estimated GFR BUN/Creatinine Ratio Glucose POC Glucose 336 H Calcium TSH 2.110 Free T4 1.15 08/06/17 08/07/17 08/07/17 20:34 08:09 12:07 Sodium Potassium Chloride Carbon Dioxide Anion Gap BUN Creatinine Estimated GFR BUN/Creatinine Ratio Glucose POC Glucose 291 H 231 H 237 H Calcium TSH Free T4
[2017-08-07] MEDS: NORVASC PO SCH (16:15)
[2017-08-07] MEDS: GLUCOTROL PO SCH (16:15)
[2017-08-07] MEDS: ZESTRIL PO SCH (16:16)
[2017-08-07] MEDS: PROTONIX PO SCH (16:16)
[2017-08-07 16:17] VITALS: BP 151/65
[2017-08-07] MEDS: ALDACTONE PO SCH (16:17)
[2017-08-07] MEDS ORDERED: APRESOLINE PO SCH (22:00)
== END 2017-08-07 17:25 | disposition home or self-care (01) | DRG 392 ==
LOC: ED 06:47 → 4A 13:00
PROVIDERS: ADMIT Internal Medicine; ATTEND Internal Medicine
PROC: 3E0234Z Introduction of Serum, Toxoid and Vaccine into Muscle, Percutaneous Approach (ICD-10-PCS; principal; 2017-08-04)
DX: K21.9 Gastro-esophageal reflux disease without esophagitis (principal); R13.10 Dysphagia, unspecified; I10 Essential (primary) hypertension; Z23 Encounter for immunization; Z79.899 Other long term (current) drug therapy; Z90.710 Acquired absence of both cervix and uterus; E11.65 Type 2 diabetes mellitus with hyperglycemia
CPT/HCPCS: 36415; 71275; 74220; 74230; 78452; 80048; 82962; 83880; 84439; 84443; 84484; 85025; 85379; 90471; 90732; 93005; 93010; 93017; 93306; 96374; A9502; C9113; G0009; G8996-GN; G8997-GN; J1815; J2785; J7050; Q9967

== ENCOUNTER 2018-02-01 10:12 | Emergency (ER) | payer MEDICARE ==
--- NOTE | 2018-02-01 15:34 | Emergency Department Report ---
Chief Complaint: Extremity Injury, Lower Stated Complaint: KNEE PAIN Time Seen by Provider: 02/01/18 15:33 - HPI History of Present Illness: 72-year-old female presents with complaint of right knee pain that has been going on for the past 5 days. She injured it while she was getting out of a car at that time. It has been hard to ambulate secondary to the discomfort. She tried some Advil for the discomfort without any relief. She has a history of hypertension and diabetes. She does not have a primary care physician. - ROS Review of Systems: Positive for right knee pain Negative for skin color change, fever, rash - Exam Vital Signs: Vital Signs 02/01/18 11:53 Temperature 98.2 F Pulse Rate 57 L Respiratory 20 Rate Blood Pressure 193/65 O2 Sat by Pulse 99 Oximetry Physical Exam: There is some tenderness to palpation to the anterior right knee. Negative anterior and posterior drawer test and no laxity with valgus or varus stress. MSE screening note: Focused history and physical exam performed. Due to findings the following was ordered: We will obtain a right knee x-ray. ED Disposition for MSE Condition: Stable Referrals: PRIMARY CARE [Primary Care Provider] - 3-5 Days
[2018-02-01 16:00] VITALS: BP 179/48
--- NOTE | 2018-02-01 16:49 | Emergency Department Report ---
HPI - General Chief Complaint: Extremity Injury, Lower Time Seen by Provider: 02/01/18 15:33 - HPI HPI: 72-year-old female presents with complaint of right knee pain that has been going on for the past 5 days. She injured it while she was getting out of a car at that time. The right lower extremity appeared to slide and then possibly hyperextended the knee. It has been hard to ambulate secondary to the discomfort. She tried some Advil for the discomfort without any relief. She has a history of hypertension and diabetes. She does not have a primary care physician. ED Past Medical Hx - Past Medical History Previous Medical History?: Yes Hx Hypertension: Yes Hx Diabetes: Yes - Surgical History Past Surgical History?: Yes Additional Surgical History: Hysterectomy - Social History Smoking Status: Never Smoker Substance Use Type: Prescribed - Medications Home Medications: Home Medications Medication Instructions Recorded Confirmed Last Taken Type Lisinopril [Zestril TAB] 40 mg PO QDAY 08/03/17 08/03/17 08/02/17 History Spironolactone [Aldactone] 25 mg PO QDAY 08/03/17 08/03/17 08/02/17 History amLODIPine [Norvasc] 10 mg PO DAILY 08/03/17 08/03/17 08/02/17 History glipiZIDE [Glipizide] 5 mg PO DAILY 08/03/17 08/03/17 08/02/17 History hydrALAZINE [Apresoline TAB] 50 mg PO BID #30 day 08/07/17 Unknown Rx Acetaminophen/Codeine [Tylenol 1 tab PO Q6H PRN #14 tab 02/01/18 Unknown Rx /Codeine # 3 tab] ED Review of Systems ROS: Stated complaint: KNEE PAIN Other details as noted in HPI Comment: All other systems reviewed and negative Constitutional: denies: chills, fever Eyes: denies: eye pain, eye discharge, vision change ENT: denies: ear pain, throat pain Respiratory: denies: cough, shortness of breath, wheezing Cardiovascular: denies: chest pain, palpitations Gastrointestinal: denies: abdominal pain, nausea, diarrhea Genitourinary: denies: urgency, dysuria, discharge Musculoskeletal: arthralgia. denies: back pain Skin: denies: rash, lesions Neurological: denies: headache, weakness, paresthesias Physical Exam - Physical Exam Vital Signs: Vital Signs 02/01/18 02/01/18 11:53 15:59 Temperature 98.2 F 97.9 F Pulse Rate 57 L 61 Respiratory 20 16 Rate Blood Pressure 193/65 Blood Pressure 179/48 [Right] O2 Sat by Pulse 99 98 Oximetry Physical Exam: GENERAL: The patient is well-developed well-nourished. HENT: Normocephalic. Atraumatic. Patient has moist mucous membranes. EYES: Extraocular motions are intact. NECK: Supple. Trachea is midline. CHEST/LUNGS: Clear to auscultation. There is no respiratory distress noted. HEART/CARDIOVASCULAR: Regular. There is no tachycardia. There is no murmur. ABDOMEN: There is no abdominal distention. SKIN: Skin is warm and dry. NEURO: The patient is awake, alert and cooperative. The patient has no focal neurologic deficits. The patient has normal speech. MUSCULOSKELETAL: There is tenderness palpation to the right knee. Negative anterior and posterior drawer test. No laxity with valgus or varus stress. There is decreased range of motion secondary to discomfort. ED Course Vital Signs 18 02/01/18 11:53 15:59 Temperature 98.2 F 97.9 F Pulse Rate 57 L 61 Respiratory 20 16 Rate Blood Pressure 193/65 Blood Pressure 179/48 [Right] O2 Sat by Pulse 99 98 Oximetry ED Medical Decision Making - Radiology Data Radiology results: image reviewed interpreted by me: X-ray of the right knee shows a lot of degenerative changes but no obvious acute fracture or any dislocation. - Medical Decision Making The patient has been dealing with 5 days of right knee pain after twisting the knee and/or hyperextending it. X-ray does not show any acute fracture, dislocation or any other acute process. Patient will be placed in a knee immobilizer and will be given referrals for orthopedic surgeons for follow-up. They understand that if her discomfort continues or if she feels it is unstable , she may need an MRI for further evaluation of the ligaments, tendons and meniscus. She has been given a small amount of pain medication for home and she lives with the daughter who is going to watch her as they understand that it can be sedating. Patient presented with some very elevated blood pressure but it came down somewhat on its own without any intervention. The patient does have a history of hypertension for which she takes blood pressure medications but she takes them at night. She will leave the hospital and take her nighttime blood pressure medication. The patient's daughter was there for continuity of care and for translation, although the patient does speak some Romanian. They understand to return to the emergency Department with any worsening of her symptoms or any acute distress. - Differential Diagnosis fracture, dislocation, contusion, sprain, strain Critical Care Time: No Critical care attestation.: If time is entered above; I have spent that time in minutes in the direct care of this critically ill patient, excluding procedure time. ED Disposition Clinical Impression: Right knee pain Qualifiers: Chronicity: acute Qualified Code(s): M25.561 - Pain in right knee Osteoarthritis, knee Qualifiers: Osteoarthritis type: unspecified Laterality: right Qualified Code(s): M17.11 - Unilateral primary osteoarthritis, right knee Knee sprain Qualifiers: Encounter type: initial encounter Involved ligament of knee: unspecified ligament Laterality: right Qualified Code(s): S83.91XA - Sprain of unspecified site of right knee, initial encounter Hypertension Qualifiers: Hypertension type: essential hypertension Qualified Code(s): I10 - Essential ( primary) hypertension Disposition: DC- TO HOME OR SELFCARE Is pt being admited?: No Condition: Stable Instructions: Knee Pain (ED), Hypertension (ED) Additional Instructions: Please follow up with an orthopedist in the next few days. If your knee pain continues she may need an MRI or further imaging for further evaluation. Use the knee immobilizer for support. Return to the emergency Department with any worsening of your symptoms or any acute distress. You have been prescribed a medication that is sedating and therefore should not be taken prior to driving, working, and responsible for children and in no way should be mixed with alcohol of any quantity. Please try and stay away from foods that is high in salt and caffeinated products to help with your blood pressure. Keep a blood pressure log. Prescriptions: Acetaminophen/Codeine [Tylenol /Codeine # 3 tab] 1 tab PO Q6H PRN #14 tab PRN Reason: Pain Referrals: AVRIL AMEZCUA MD [Staff Physician] - 2-3 Days [facility] [Provider Group] - 2-3 Days Time of Disposition: 16:53
--- NOTE | 2018-02-01 16:54 | XRay Report ---
FINAL REPORT EXAM: XR KNEE 3V RT HISTORY: right knee pain TECHNIQUE: 3 views of the right knee PRIORS: None. FINDINGS: Extensive nonspecific, likely degenerative, calcification is present in the region of the menisci and popliteal fossa. There may be a component of synovial calcification/ossification. No definite joint space narrowing. No acute fracture or dislocation. Moderate nonspecific soft tissue prominence superior to the patella on the lateral view may reflect moderate knee joint effusion. IMPRESSION: No acute skeletal pathology Multifocal soft tissue calcification may be degenerative. 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
== END 2018-02-01 16:05 | disposition home or self-care (01) ==
LOC: ED 10:12
DX: S83.91XA Sprain of unspecified site of right knee, initial encounter (principal); I10 Essential (primary) hypertension; M17.11 Unilateral primary osteoarthritis, right knee; M25.561 Pain in right knee; E11.9 Type 2 diabetes mellitus without complications; Z90.710 Acquired absence of both cervix and uterus; X58.XXXA Exposure to other specified factors, initial encounter; Y93.89 Activity, other specified; Y99.8 Other external cause status; Y92.89 Other specified places as the place of occurrence of the external cause

== ENCOUNTER 2018-10-27 11:09 | Emergency (ER) | payer MEDICARE ==
--- NOTE | 2018-10-27 11:27 | Emergency Department Report ---
Blank Doc - Documentation Documentation: C/O neck pain since Wednesday. Pain 10/10 Worst with moving. Hx/o DM,Htn This initial assessment diagnostic orders/clinical plan/treatment (s) is/Are subject change based on patient's health status, clinical progression and re- assessment by fellow clinical providers in the ED. Further treatment and work-up at subsequent clinical providers discretion. Patient/guardians urged not to elope from their condition may be serious if not clinically assessed and managed. Initial order include:
[2018-10-27 11:28] VITALS: BP 185/83
[2018-10-27] MEDS ORDERED: TORADOL IM ONE (11:47)
--- NOTE | 2018-10-27 11:50 | Emergency Department Report ---
ED General Adult HPI - General Chief complaint: Pain General Stated complaint: RT SIDE NECK PAIN Time Seen by Provider: 10/27/18 11:22 Source: patient Mode of arrival: Ambulatory Limitations: No Limitations - History of Present Illness Initial comments: Patient is a 73-year-old female who is presenting with right neck pain. Patient states 2 days ago she woke up with this pain. It hurts worse with movement and worse with palpation in the trapezius. The daughter and the patient is denied any falls. Patient has some mild tingling into the right fingertips. She has no pain with moving the head up or down but does has negative pain with right and left. Patient denies any fevers nausea vomiting. Severity scale (0 -10): 10 - Related Data Home Medications Medication Instructions Recorded Confirmed Last Taken Lisinopril [Zestril TAB] 40 mg PO QDAY 08/03/17 08/03/17 08/02/17 Spironolactone [Aldactone] 25 mg PO QDAY 08/03/17 08/03/17 08/02/17 amLODIPine [Norvasc] 10 mg PO DAILY 08/03/17 08/03/17 08/02/17 glipiZIDE [Glipizide] 5 mg PO DAILY 08/03/17 08/03/17 08/02/17 Previous Rx's Medication Instructions Recorded Last Taken Type hydrALAZINE [Apresoline TAB] 50 mg PO BID #30 day 08/07/17 Unknown Rx Acetaminophen/Codeine [Tylenol 1 tab PO Q6H PRN #14 tab 02/01/18 Unknown Rx /Codeine # 3 tab] Ibuprofen [Motrin] 600 mg PO Q8H PRN #20 tablet 10/27/18 Unknown Rx methOCARBAMOL [Robaxin TAB] 500 mg PO Q6H PRN #15 tablet 10/27/18 Unknown Rx traMADol [Ultram] 50 mg PO Q6HR PRN #12 tablet 10/27/18 Unknown Rx Allergies Allergy/AdvReac Type Severity Reaction Status Date / Time No Known Allergies Allergy Unverified 10/04/13 18:50 ED Review of Systems ROS: Stated complaint: RT SIDE NECK PAIN Other details as noted in HPI Comment: All other systems reviewed and negative ED Past Medical Hx - Past Medical History Hx Hypertension: Yes Hx Diabetes: Yes - Surgical History Additional Surgical History: Hysterectomy - Social History Smoking Status: Never Smoker Substance Use Type: None - Medications Home Medications: Home Medications Medication Instructions Recorded Confirmed Last Taken Type Lisinopril [Zestril TAB] 40 mg PO QDAY 08/03/17 08/03/17 08/02/17 History Spironolactone [Aldactone] 25 mg PO QDAY 08/03/17 08/03/17 08/02/17 History amLODIPine [Norvasc] 10 mg PO DAILY 08/03/17 08/03/17 08/02/17 History glipiZIDE [Glipizide] 5 mg PO DAILY 08/03/17 08/03/17 08/02/17 History hydrALAZINE [Apresoline TAB] 50 mg PO BID #30 day 08/07/17 Unknown Rx Acetaminophen/Codeine [Tylenol 1 tab PO Q6H PRN #14 tab 02/01/18 Unknown Rx /Codeine # 3 tab] Ibuprofen [Motrin] 600 mg PO Q8H PRN #20 tablet 10/27/18 Unknown Rx methOCARBAMOL [Robaxin TAB] 500 mg PO Q6H PRN #15 tablet 10/27/18 Unknown Rx traMADol [Ultram] 50 mg PO Q6HR PRN #12 tablet 10/27/18 Unknown Rx ED Physical Exam - General Limitations: No Limitations General appearance: alert, in no apparent distress - Head Head exam: Present: atraumatic, normocephalic - Eye Eye exam: Present: normal appearance - ENT ENT exam: Present: mucous membranes moist - Neck Neck exam: Present: normal inspection, tenderness (right trapezius pain. There is no midline tenderness or pain on the left). Absent: full ROM - Respiratory Respiratory exam: Present: normal lung sounds bilaterally. Absent: respiratory distress - Cardiovascular Cardiovascular Exam: Present: regular rate, normal rhythm. Absent: systolic murmur, diastolic murmur, rubs, gallop - GI/Abdominal GI/Abdominal exam: Present: soft, normal bowel sounds - Extremities Exam Extremities exam: Present: normal inspection - Back Exam Back exam: Present: normal inspection - Neurological Exam Neurological exam: Present: alert, oriented X3 - Psychiatric Psychiatric exam: Present: normal affect, normal mood - Skin Skin exam: Present: warm, dry, intact, normal color. Absent: rash ED Course Vital Signs 10/27/18 11:26 Temperature 98.5 F Pulse Rate 69 Respiratory 18 Rate Blood Pressure 185/83 O2 Sat by Pulse 98 Oximetry ED Medical Decision Making - Medical Decision Making Patient with clinical torticollis and will be given as her symptomatically for discharge home. Critical care attestation.: If time is entered above; I have spent that time in minutes in the direct care of this critically ill patient, excluding procedure time. ED Disposition Clinical Impression: Torticollis, acute Disposition: DC-01 TO HOME OR SELFCARE Is pt being admited?: No Does the pt Need Aspirin: No Condition: Stable Instructions: Spasmodic Torticollis (ED) Referrals: PRIMARY CARE, [Primary Care Provider] - 3-5 Days Time of Disposition: 11:50
[2018-10-27] MEDS ORDERED: TORADOL ONE (11:56)
== END 2018-10-27 12:07 | disposition home or self-care (01) ==
LOC: ED 11:09
DX: M43.6 Torticollis (principal); E11.9 Type 2 diabetes mellitus without complications; I10 Essential (primary) hypertension; Z90.710 Acquired absence of both cervix and uterus; Z79.899 Other long term (current) drug therapy
CPT/HCPCS: 96372; 99282; J1885

== ENCOUNTER 2019-02-01 15:35 | Inpatient (IN) | payer MEDICARE ==
--- NOTE | 2019-02-01 16:23 | Emergency Department Report ---
ED Chest Pain HPI - General Chief Complaint: Chest Pain Stated Complaint: CHEST PAIN Time Seen by Provider: 02/01/19 16:09 Source: EMS Mode of arrival: Stretcher Limitations: Language Barrier - History of Present Illness Initial Comments: Patient is a 73-year-old female that presents emergency room with complaints of chest pain radiating to her back. Patient states that her chest pain started approximately 1 week ago but has been intermittent. Patient states he came on this morning approximately 8 AM and was worse it's ever been. Patient states h er chest pain prior to today was not radiating to her back but this morning began to radiate to her back. Patient states that her chest pain is an 7 out of 10 and is in the center of her chest radiating to her back. Patient states she is also been having shortness of breath. Patient states she is brought in by EMS. Patient states that she was given nitroglycerin and aspirin in route. Patient's blood pressure was quite high by EMS at 238/74. Patient states she is not has seen any change in her pain with the medications. Patient states her pain is better with rest and worse with exertion. Patient denies recent trauma or fall. MD Complaint: chest pain -: Sudden Onset: during rest Pain Location: substernal Pain Radiation: back Severity: severe Severity scale (0 -10): 7 Quality: sharp Consistency: constant Improves With: rest Worsens With: exertion re: dyspnea. denies: nausea, vomting, diaphoresis, sense of impending doom Other Symptoms: palpitations. denies: cough, fever, syncope, rash, acid taste in mouth, leg swelling Treatments Prior to Arrival: aspirin, nitroglycerin Aspirin use within the Past 7 Days: (1) Yes - Related Data On Oral Contraceptives: No Home Medications Medication Instructions Recorded Confirmed Last Taken Lisinopril [Zestril TAB] 40 mg PO QDAY 08/03/17 02/01/19 02/01/19 amLODIPine [Norvasc] 10 mg PO DAILY 08/03/17 02/01/19 02/01/19 AtorvaSTATin 40 mg PO HS 02/01/19 02/01/19 02/01/19 metFORMIN 500 mg BID 02/01/19 02/01/19 02/01/19 Allergies Allergy/AdvReac Type Severity Reaction Status Date / Time No Known Allergies Allergy Unverified 10/04/13 18:50 Heart Score - HEART Score History: Highly suspicious EKG: Non-specific Age: > 65 Risk factors: > 3 risk factors or hx of atherosclerotic disease Troponin: < normal limit HEART Score: 7 ED Review of Systems ROS: Stated complaint: CHEST PAIN Other details as noted in HPI Constitutional: denies: chills, fever Eyes: denies: eye pain, eye discharge, vision change ENT: denies: ear pain, throat pain Respiratory: shortness of breath. denies: cough, wheezing Cardiovascular: chest pain. denies: palpitations Endocrine: no symptoms reported Gastrointestinal: denies: abdominal pain, nausea, diarrhea Genitourinary: denies: urgency, dysuria, discharge Musculoskeletal: denies: back pain, joint swelling, arthralgia Skin: denies: rash, lesions Neurological: denies: headache, weakness, paresthesias Psychiatric: denies: anxiety, depression Hematological/Lymphatic: denies: easy bleeding, easy bruising ED Past Medical Hx - Past Medical History Previous Medical History?: Yes Hx Hypertension: Yes Hx Diabetes: Yes - Surgical History Past Surgical History?: Yes Additional Surgical History: Hysterectomy - Family History Family history: no significant - Social History Smoking Status: Never Smoker Substance Use Type: None - Medications Home Medications: Home Medications Medication Instructions Recorded Confirmed Last Taken Type Lisinopril [Zestril TAB] 40 mg PO QDAY 08/03/17 02/01/19 02/01/19 History amLODIPine [Norvasc] 10 mg PO DAILY 08/03/17 02/01/19 02/01/19 History AtorvaSTATin 40 mg PO HS 02/01/19 02/01/19 02/01/19 History metFORMIN 500 mg BID 02/01/19 02/01/19 02/01/19 History ED Physical Exam - General Limitations: Language Barrier General appearance: alert, in no apparent distress - Head Head exam: Present: atraumatic, normocephalic - Eye Eye exam: Present: normal appearance, PERRL Pupils: Present: normal accommodation - ENT ENT exam: Present: mucous membranes moist - Neck Neck exam: Present: normal inspection - Respiratory Respiratory exam: Present: normal lung sounds bilaterally. Absent: respiratory distress, wheezes, rales - Cardiovascular Cardiovascular Exam: Present: regular rate, normal rhythm. Absent: systolic murmur, diastolic murmur, rubs, gallop - GI/Abdominal GI/Abdominal exam: Present: soft, normal bowel sounds. Absent: distended, tenderness, guarding - Rectal Rectal exam: Present: deferred - Extremities Exam Extremities exam: Present: normal inspection - Back Exam Back exam: Present: normal inspection - Neurological Exam Neurological exam: Present: alert, oriented X3 - Psychiatric Psychiatric exam: Present: normal affect, normal mood - Skin Skin exam: Present: warm, dry, intact, normal color. Absent: rash ED Course Vital Signs 02/01/19 02/01/19 15:56 18:00 Temperature 98.3 F Pulse Rate 68 66 Respiratory 18 18 Rate Blood Pressure 157/56 Blood Pressure 149/49 [Left] O2 Sat by Pulse 96 95 Oximetry - Reevaluation(s) Reevaluation #1: Discussed all results with patient. Patient will be admitted to the hospitalist service. Patient agrees to plan of care. Patient states she is pain-free 02/01/19 20:20 - Consultations Consultation #1: Hospitalist consulted for admission. Hospitalist to admit patient. Hospitalist to assume care patient. 02/01/19 20:20 SHARON score - Sharon Score Age > 65: (1) Yes Aspirin use within the Past 7 Days: (1) Yes 3 or more CAD Risk Factors: (1) Yes 2 or more Angina events in past 24 hrs: (1) Yes Known CAD with more than 50% Stenosis: (0) No Elevated Cardiac Markers: (0) No ST Deviation Greater than 0.5mm: (0) No SHARON Score: 4 ED Medical Decision Making - Lab Data Result diagrams: 02/01/19 16:35 02/01/19 16:35 - EKG Data -: EKG Interpreted by Me EKG shows normal: sinus rhythm, axis, intervals, ST-T waves Rate: normal - EKG Data Interpretation: other (LBBB) - Radiology Data Radiology results: report reviewed, image reviewed interpreted by me: No acute findings on chest x-ray CTA chest IMPRESSION: 1. No acute abnormality identified. No evidence of PE 2. 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 - Medical Decision Making Patient is a 73-year-old female presents to [facility] with chest pain radiating to the back. Patient had a CTA which was negative. Patient will be admitted to the hospitalist service. Patient's labs unremarkable except for hyperglycemia. - Differential Diagnosis chest pain. ACS. PE. Dissection. Critical Care Time: Yes Critical care attestation.: If time is entered above; I have spent that time in minutes in the direct care of this critically ill patient, excluding procedure time. Critical Care Time: 35 minutes ED Disposition Clinical Impression: Malignant hypertension, Hyperglycemia Chest pain Qualifiers: Chest pain type: unspecified Qualified Code(s): R07.9 - Chest pain, unspecified HTN (hypertension) Qualifiers: Hypertension type: essential hypertension Qualified Code(s): I10 - Essential (primary) hypertension Disposition: OP ADMIT IP TO THIS HOSP Is pt being admited?: Yes Does the pt Need Aspirin: No Condition: Critical Time of Disposition: 20:20
[2019-02-01] MEDS ORDERED: MORPHINE IV ONE (16:29)
[2019-02-01 17:05] LABS: Basophils % (Auto) 0.5 % (0.0-1.8); Eosinophils # (Auto) 0.1 K/mm3 (0.0-0.4); Eosinophils % (Auto) 2.1 % (0.0-4.3); Hematocrit 38.4 % (30.3-42.9); Hemoglobin 13.2 gm/dl (10.1-14.3); Lymphocytes # (Auto) 0.9 K/mm3 (1.2-5.4); Lymphocytes % (Auto) 13.5 % (13.4-35.0); Mean Corpuscular HGB Conc 34 % (30-34); Mean Corpuscular Volume 88 fl (79-97); Monocytes # (Auto) 0.3 K/mm3 (0.0-0.8); Monocytes % (Auto) 4.8 % (0.0-7.3); Platelet Count 155 K/mm3 (140-440); Red Blood Count 4.35 M/mm3 (3.65-5.03); Red Cell Distribution Width 13.3 % (13.2-15.2)
[2019-02-01 17:24] LABS: Alanine Aminotransferase 11 units/L (7-56); Albumin 3.6 g/dL (3.9-5); BUN/Creatinine Ratio 23; Blood Urea Nitrogen 18 mg/dL (7-17); Hemolysis Index 31
--- NOTE | 2019-02-01 17:36 | XRay Report ---
PROCEDURE: XR CHEST 1V AP TECHNIQUE: Chest radiograph single view. HISTORY: Chest Pain COMPARISONS: None . FINDINGS: Heart: Normal. Mediastinum/Vessels: Calcification of the aortic arch is again noted. Lungs/Pleural space: Normal. Bony thorax: No acute osseous abnormality. Life support devices: Endotracheal tube terminates 4 cm above the praveen.. IMPRESSION: No acute cardiopulmonary abnormality. Satisfactory ET tube positioning This document is electronically signed by Callie Wong MD., February 01 2019 05:35:00 PM ET
--- NOTE | 2019-02-01 19:24 | Cat Scan Report ---
PROCEDURE: CT ANGIO CHEST TECHNIQUE: Computerized tomographic angiography of the chest was performed after the IV injection of iodinated nonionic contrast including image processing. The image data was postprocessed using 2-di mensional multiplanar reformatted (MPR) and 3-dimensional (MIP and/or volume rendered) techniques. Au tomated exposure control, adjustment of mA and/or kV according to patient size, or iterative reconstr uction dose optimization techniques were utilized. CT DOSE LENGTH PRODUCT: 591.5 mGycm HISTORY: cp. sob. COMPARISONS: CT chest 08/03/2017 . FINDINGS: Heart and pericardium: Normal. Thoracic aorta: Normal. Pulmonary vasculature: Normal. No evidence for PE Lymph nodes: No enlarged thoracic lymph nodes. Lungs: Normal. Pleural space: No effusion, thickening, or pneumothorax. Musculoskeletal structures: Focal lucency at T1 and T6 vertebral bodies is consistent with vertebral body hemangiomas. 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 Findings are stable. Upper abdominal structures: No significant abnormality. Gallbladder has been surgically removed IMPRESSION: 1. No acute abnormality identified. No evidence of PE 2. 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 This document is electronically signed by Callie Wong MD., February 01 2019 07:22:54 PM ET
[2019-02-01] MEDS ORDERED: D50W (25GM) Syringe IV PRN (21:43)
[2019-02-01] MEDS ORDERED: DILAUDID IV PRN (21:44)
[2019-02-01] MEDS ORDERED: SODIUM CHLORIDE FLUSH SYRINGE 10 ML IV PRN (21:44)
[2019-02-01] MEDS ORDERED: TYLENOL PO PRN (21:44)
[2019-02-01] MEDS ORDERED: PROVENTIL IH PRN (21:44)
[2019-02-01] MEDS ORDERED: ZOFRAN IV PRN (21:44)
[2019-02-01] MEDS ORDERED: NITROSTAT SL PRN (21:45)
[2019-02-01] MEDS ORDERED: NON-FORMULARY (Metformin 500 MG) PO SCH (22:00)
[2019-02-01] MEDS ORDERED: GLUCOPHAGE PO SCH (22:00)
[2019-02-01] MEDS: MORPHINE IV PRN (23:03)
[2019-02-01] MEDS: HEPARIN SUB-Q SCH (23:04)
[2019-02-01] MEDS: SODIUM CHLORIDE FLUSH SYRINGE 10 ML IV SCH (23:06)
[2019-02-01] MEDS: NACL 0.9% 1000 ML 1,000 ML IV SCH (23:06)
--- NOTE | 2019-02-02 00:31 | History and Physical Report ---
<OLINDA MAURICE - Last Filed: 02/02/19 01:11> History of Present Illness Date of examination: 02/01/19 Date of admission: 02/01/19 20:23 Chief complaint: Chest pain History of present illness: 73-year-old female with history DM 2, hypertension, and questionable asthma, who presents to [facility] ED via EMS with complaints of substernal chest pain. Please patient the patient is Trin[place]-speaking and has requested that her daughter translate. Patient states she has been experiencing intermittent substernal chest pain for approximately one week. However, today she started experiencing constant chest pain radiating to her back. The pain was unbearable, so she decided to call EMS. She had profound HTN with BP 238/74 per EMS. While in route to our facility pt was given nitroglycerin and aspirin. She describes her pain as sharp and rates it 10/10. There were no aggravating factors and pain is relieved with the pain medicine. The pain is accompanied by nausea and shortness of breath. Admits substernal chest pain with radiation to pack, nausea, and dyspnea Denies emesis, headache, hemoptysis, cough, sputum production, visual dis turbances, fever, diaphoresis, and recent sick contact Past History Past Medical History: diabetes, hypertension, hyperlipidemia, other (asthma) Past Surgical History: hysterectomy Social history: lives with family Family history: no significant family history Medications and Allergies Allergies Allergy/AdvReac Type Severity Reaction Status Date / Time No Known Allergies Allergy Unverified 10/04/13 18:50 Home Medications Medication Instructions Recorded Confirmed Last Taken Type Lisinopril [Zestril TAB] 40 mg PO QDAY 08/03/17 02/01/19 02/01/19 History amLODIPine [Norvasc] 10 mg PO DAILY 08/03/17 02/01/19 02/01/19 History AtorvaSTATin 40 mg PO HS 02/01/19 02/01/19 02/01/19 History metFORMIN 500 mg BID 02/01/19 02/01/19 02/01/19 History Active Meds: Active Medications Acetaminophen (Tylenol) 650 mg PO Q4H PRN PRN Reason: Pain MILD(1-3)/Fever >100.5/SIMMONS Albuterol (Proventil) 2.5 mg IH Q4HRT PRN PRN Reason: Shortness Of Breath Amlodipine Besylate (Norvasc) 10 mg PO DAILY [facility] Aspirin (Baby Aspirin) 81 mg PO QDAY [facility] Atorvastatin Calcium (Lipitor) 20 mg PO QHS [facility] Last Admin: 02/01/19 23:05 Dose: 20 mg Documented by: Dextrose (D50w (25gm) Syringe) 50 ml IV PRN PRN PRN Reason: Hypoglycemia Heparin Sodium (Porcine) (Heparin) 5,000 unit SUB-Q Q12HR [facility] Last Admin: 02/01/19 23:04 Dose: 5,000 unit Documented by: Hydromorphone HCl (Dilaudid) 0.5 mg IV Q3H PRN PRN Reason: Pain , Severe (7-10) Stop: 02/02/19 23:59 Sodium Chloride (Nacl 0.9% 1000 Ml) 1,000 mls @ 75 mls/hr IV DIRECT [facility] Last Admin: 02/01/19 23:06 Dose: 75 mls/hr Documented by: Insulin Human Lispro (Humalog) 0 unit SUB-Q Q6HR [facility]; Protocol Lisinopril (Zestril) 40 mg PO QDAY [facility] Metformin HCl (Glucophage) 500 mg PO BIDDIAB [facility] Last Admin: 02/01/19 23:05 Dose: 500 mg Documented by: Morphine Sulfate (Morphine) 2 mg IV Q4H PRN PRN Reason: Pain, Moderate (4-6) Stop: 02/02/19 23:59 Last Admin: 02/01/19 23:03 Dose: 2 mg Documented by: Nitroglycerin (Nitrostat) 0.4 mg SL Q5M PRN PRN Reason: Chest Pain Ondansetron HCl (Zofran) 4 mg IV Q8H PRN PRN Reason: Nausea And Vomiting Sodium Chloride (Sodium Chloride Flush Syringe 10 Ml) 10 ml IV BID [facility] Last Admin: 02/01/19 23:06 Dose: 10 ml Documented by: Sodium Chloride (Sodium Chloride Flush Syringe 10 Ml) 10 ml IV PRN PRN PRN Reason: LINE FLUSH Review of Systems All systems: negative (reviewed and additional remarkable complaints except as noted below) Cardiovascular: chest pain (with radiation to back), shortness of breath Respiratory: shortness of breath Gastrointestinal: nausea Exam - Physical Exam Narrative exam: Physical exam General appearance: Present: No acute distress, pleasant, Trin[place]adian-speaking older adult female - EENT Eyes: Present: PERRL, EOM intact ENT: Hard of hearing, poor dentition - Neck Neck: Present: supple, normal ROM - Respiratory Respiratory effort: Non-labored Respiratory: bilateral: diminished (bases) - Cardiovascular Heart rate: 62 (bpm) Rhythm: Left bundle-branch block Heart Sounds: Present: S1 & S2. Absent: rub, click - Extremities Extremities: no ischemia, pulses intact, abnormal (mild swelling to bilateral knees) - Peripheral Assessment Peripheral Pulses: within normal limits - Abdominal General gastrointestinal: soft, non-tender, normal bowel sounds - Integumentary Integumentary: Present: warm, dry - Musculoskeletal Musculoskeletal: Normal extremities - Psychiatric Psychiatric: cooperative - Constitutional Vitals: Temp Pulse Resp BP Pulse Ox 98.2 F 67 20 157/53 95 02/01/19 22:13 02/01/19 22:13 02/01/19 23:03 02/01/19 22:13 02/01/19 22:13 Results - Labs CBC & Chem 7: 02/01/19 16:35 02/01/19 16:35 Labs: Laboratory Last Values WBC 6.4 K/mm3 (4.5-11.0) 02/01/19 16:35 RBC 4.35 M/mm3 (3.65-5.03) 02/01/19 16:35 Hgb 13.2 gm/dl (10.1-14.3) 02/01/19 16:35 Hct 38.4 % (30.3-42.9) 02/01/19 16:35 MCV 88 fl (79-97) 02/01/19 16:35 MCH 30 pg (28-32) 02/01/19 16:35 MCHC 34 % (30-34) 02/01/19 16:35 RDW 13.3 % (13.2-15.2) 02/01/19 16:35 Plt Count 155 K/mm3 (140-440) 02/01/19 16:35 Lymph % (Auto) 13.5 % (13.4-35.0) 02/01/19 16:35 [place] % (Auto) 4.8 % (0.0-7.3) 02/01/19 16:35 Eos % (Auto) 2.1 % (0.0-4.3) 02/01/19 16:35 Baso % (Auto) 0.5 % (0.0-1.8) 02/01/19 16:35 Lymph # 0.9 K/mm3 (1.2-5.4) L 02/01/19 16:35 [place] # 0.3 K/mm3 (0.0-0.8) 02/01/19 16:35 Eos # 0.1 K/mm3 (0.0-0.4) 02/01/19 16:35 Baso # 0.0 K/mm3 (0.0-0.1) 02/01/19 16:35 Seg Neutrophils % 79.1 % (40.0-70.0) H 02/01/19 16:35 Seg Neutrophils # 5.1 K/mm3 (1.8-7.7) 02/01/19 16:35 Sodium 142 mmol/L (137-145) 02/01/19 16:35 Potassium 4.5 mmol/L (3.6-5.0) 02/01/19 16:35 Chloride 105.5 mmol/L (98-107) 02/01/19 16:35 Carbon Dioxide 25 mmol/L (22-30) 02/01/19 16:35 16 mmol/L 02/01/19 16:35 BUN 18 mg/dL (7-17) H 02/01/19 16:35 0.8 mg/dL (0.7-1.2) 02/01/19 16:35 Estimated GFR > 60 ml/min 02/01/19 16:35 23 % 02/01/19 16:35 Glucose 269 mg/dL (65-100) H 02/01/19 16:35 7.6 % (4-6) H 02/01/19 16:35 Calcium 9.0 mg/dL (8.4-10.2) 02/01/19 16:35 0.20 mg/dL (0.1-1.2) 02/01/19 16:35 AST 14 units/L (5-40) 02/01/19 16:35 ALT 11 units/L (7-56) 02/01/19 16:35 107 units/L (35-129) 02/01/19 16:35 < 0.010 ng/mL (0.00-0.029) 02/01/19 22:45 6.1 g/dL (6.3-8.2) L 02/01/19 16:35 3.6 g/dL (3.9-5) L 02/01/19 16:35 1.4 % 02/01/19 16:35 Short CBC 02/01/19 Range/Units 16:35 WBC 6.4 (4.5-11.0) K/mm3 Hgb 13.2 (10.1-14.3) gm/dl Hct 38.4 (30.3-42.9) % Plt Count 155 (140-440) K/mm3 BMP 02/01/19 16:35 Sodium 142 Potassium 4.5 Chloride 105.5 Carbon Dioxide 25 BUN 18 H Creatinine 0.8 Glucose 269 H Calcium 9.0 Cardiac Enzymes 02/01/19 02/01/19 Range/Units 16:35 22:45 Troponin T < 0.010 < 0.010 (0.00-0.029) ng/mL Liver Function 02/01/19 Range/Units 16:35 Total Bilirubin 0.20 (0.1-1.2) mg/dL AST 14 (5-40) units/L ALT 11 (7-56) units/L Alkaline Phosphatase 107 (35-129) units/L Albumin 3.6 L (3.9-5) g/dL - Imaging and Cardiology EKG: image reviewed (6 bpm, left bundle-branch block) Chest x-ray: report reviewed (No acute cardiopulmonary abnormality), image reviewed Imaging and Cardiology: CTA Chest: Findings No acute abnormality identified. No evidence of PE. 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 Assessment and Plan Assessment and plan: 73-year-old female with history DM 2, hypertension, questionable asthma who presents to [facility] ED with complaints of substernal chest pain. CTA chest was unrevealing for PE. EKG did not show any acute ischemic abnormalities. CXR unremarkable. Troponin negative 1. Will admit as OBS to Telemetry for further evaluation. Acute chest pain R/O ACS DM 2- uncontrolled Dehydration ONELIA Hypertensive urgency HTN Questionable History of asthma Plan: Continue Supportive care Continuious Telemetry monitoring Repeat Troponin negative Monitor BP Resume home Lisinopril 40mg daily and Norvasc 10mg daily IV hydralazine when necessary POC BG monitoring HgA1C 7.6 SSI coverage, and resume home Metformin 50mg BID Start ASA 81mg Continue Lipitor 20mg q HS NPO at midnight Echo and Lexscan pending in am Cardiology consulted Gentle hydration with NS@ 75ml/hr Albuterol prn DVT PPX on Lovenox and SCD's This pt has been seen in conjunction with Dr. Fuentes. Advance Directives: No VTE prophylaxis?: Chemical Plan of care discussed with patient/family: Yes <RED FUENTES - Last Filed: 02/03/19 22:57> History of Present Illness Date of admission: 02/01/19 20:23 Medications and Allergies Active Meds: Active Medications Acetaminophen (Tylenol) 650 mg PO Q4H PRN PRN Reason: Pain MILD(1-3)/Fever >100.5/SIMMONS Albuterol (Proventil) 2.5 mg IH Q4HRT PRN PRN Reason: Shortness Of Breath Amlodipine Besylate (Norvasc) 10 mg PO DAILY [facility] Aspirin (Baby Aspirin) 81 mg PO QDAY [facility] Atorvastatin Calcium (Lipitor) 20 mg PO QHS [facility] Last Admin: 02/01/19 23:05 Dose: 20 mg Documented by: Dextrose (D50w (25gm) Syringe) 50 ml IV PRN PRN PRN Reason: Hypoglycemia Heparin Sodium (Porcine) (Heparin) 5,000 unit SUB-Q Q12HR [facility] Last Admin: 02/01/19 23:04 Dose: 5,000 unit Documented by: Hydromorphone HCl (Dilaudid) 0.5 mg IV Q3H PRN PRN Reason: Pain , Severe (7-10) Stop: 02/02/19 23:59 Sodium Chloride (Nacl 0.9% 1000 Ml) 1,000 mls @ 75 mls/hr IV DIRECT [facility] Last Admin: 02/01/19 23:06 Dose: 75 mls/hr Documented by: Insulin Human Lispro (Humalog) 0 unit SUB-Q Q6HR [facility]; Protocol Last Admin: 02/02/19 01:36 Dose: Not Given Documented by: Lisinopril (Zestril) 40 mg PO QDAY [facility] Metformin HCl (Glucophage) 500 mg PO BIDDIAB [facility] Last Admin: 02/01/19 23:05 Dose: 500 mg Documented by: Morphine Sulfate (Morphine) 2 mg IV Q4H PRN PRN Reason: Pain, Moderate (4-6) Stop: 02/02/19 23:59 Last Admin: 02/01/19 23:03 Dose: 2 mg Documented by: Nitroglycerin (Nitrostat) 0.4 mg SL Q5M PRN PRN Reason: Chest Pain Ondansetron HCl (Zofran) 4 mg IV Q8H PRN PRN Reason: Nausea And Vomiting Sodium Chloride (Sodium Chloride Flush Syringe 10 Ml) 10 ml IV BID [facility] Last Admin: 02/01/19 23:06 Dose: 10 ml Documented by: Sodium Chloride (Sodium Chloride Flush Syringe 10 Ml) 10 ml IV PRN PRN PRN Reason: LINE FLUSH Exam - Constitutional Vitals: Temp Pulse Resp BP Pulse Ox 98.2 F 56 L 20 140/47 97 02/02/19 00:32 02/02/19 00:32 02/02/19 00:32 02/02/19 00:32 02/02/19 00:51 Results - Labs CBC & Chem 7: 02/03/19 16:13 02/03/19 16:13 Labs: Laboratory Last Values WBC 6.4 K/mm3 (4.5-11.0) 02/01/19 16:35 RBC 4.35 M/mm3 (3.65-5.03) 02/01/19 16:35 Hgb 13.2 gm/dl (10.1-14.3) 02/01/19 16:35 Hct 38.4 % (30.3-42.9) 02/01/19 16:35 MCV 88 fl (79-97) 02/01/19 16:35 MCH 30 pg (28-32) 02/01/19 16:35 MCHC 34 % (30-34) 02/01/19 16:35 RDW 13.3 % (13.2-15.2) 02/01/19 16:35 Plt Count 155 K/mm3 (140-440) 02/01/19 16:35 Lymph % (Auto) 13.5 % (13.4-35.0) 02/01/19 16:35 [place] % (Auto) 4.8 % (0.0-7.3) 02/01/19 16:35 Eos % (Auto) 2.1 % (0.0-4.3) 02/01/19 16:35 Baso % (Auto) 0.5 % (0.0-1.8) 02/01/19 16:35 Lymph # 0.9 K/mm3 (1.2-5.4) L 02/01/19 16:35 [place] # 0.3 K/mm3 (0.0-0.8) 02/01/19 16:35 Eos # 0.1 K/mm3 (0.0-0.4) 02/01/19 16:35 Baso # 0.0 K/mm3 (0.0-0.1) 02/01/19 16:35 Seg Neutrophils % 79.1 % (40.0-70.0) H 02/01/19 16:35 Seg Neutrophils # 5.1 K/mm3 (1.8-7.7) 02/01/19 16:35 Sodium 142 mmol/L (137-145) 02/01/19 16:35 Potassium 4.5 mmol/L (3.6-5.0) 02/01/19 16:35 Chloride 105.5 mmol/L (98-107) 02/01/19 16:35 Carbon Dioxide 25 mmol/L (22-30) 02/01/19 16:35 16 mmol/L 02/01/19 16:35 BUN 18 mg/dL (7-17) H 02/01/19 16:35 0.8 mg/dL (0.7-1.2) 02/01/19 16:35 Estimated GFR > 60 ml/min 02/01/19 16:35 23 % 02/01/19 16:35 Glucose 269 mg/dL (65-100) H 02/01/19 16:35 POC Glucose 229 (70-105) H 02/02/19 01:12 7.6 % (4-6) H 02/01/19 16:35 Calcium 9.0 mg/dL (8.4-10.2) 02/01/19 16:35 0.20 mg/dL (0.1-1.2) 02/01/19 16:35 AST 14 units/L (5-40) 02/01/19 16:35 ALT 11 units/L (7-56) 02/01/19 16:35 107 units/L (35-129) 02/01/19 16:35 < 0.010 ng/mL (0.00-0.029) 02/01/19 22:45 6.1 g/dL (6.3-8.2) L 02/01/19 16:35 3.6 g/dL (3.9-5) L 02/01/19 16:35 1.4 % 02/01/19 16:35 Triglycerides 89 mg/dL (2-149) 02/01/19 22:45 Cholesterol 164 mg/dL (50-199) 02/01/19 22:45 109 mg/dL (50-130) 02/01/19 22:45 45 mg/dL (40-59) 02/01/19 22:45 3.64 % 02/01/19 22:45 Assessment and Plan Assessment and plan: 73-year-old woman with a history of hypertension, diabetes mellitus emergency room with complaints of chest pain. In the epigastric area radiating to the back. Her CAT scan chest, x-rays negative, agree with stated above; except hold metformin, d/c cardiolgy consult and echo
[2019-02-02 01:04] LABS: Chol/HDL Ratio 3.64 %
[2019-02-02] MEDS: HumaLOG SUB-Q SCH ×5 (01:36→23:01)
[2019-02-02] MEDS ORDERED: LEXISCAN IV ONE (08:50)
[2019-02-02] MEDS ORDERED: PLAVIX PO SCH (10:00)
[2019-02-02] MEDS: BABY ASPIRIN PO SCH ×2 (10:36→12:44)
[2019-02-02] MEDS: ZESTRIL PO SCH ×2 (10:36→12:46)
[2019-02-02] MEDS: NORVASC PO SCH ×2 (10:36→12:43)
[2019-02-02] MEDS: HEPARIN SUB-Q SCH ×3 (10:36→23:03)
[2019-02-02] MEDS: NACL 0.9% 1000 ML 1,000 ML IV SCH (11:55)
[2019-02-02] MEDS: SODIUM CHLORIDE FLUSH SYRINGE 10 ML IV SCH ×2 (12:35→23:02)
--- NOTE | 2019-02-02 14:46 | Progress Note ---
Assessment and Plan Assessment and plan: patient is 73-year-old female with history DM 2, hypertension, questionable asthma who presents to [facility] ED with complaints of substernal chest pain. CTA chest was unrevealing for PE. EKG did not show any acute ischemic abnormalities. CXR unremarkable. Troponin negative 1. Acute chest pain R/O ACS DM 2- uncontrolled Dehydration Hypertensive urgency HTN Questionable History of asthma Plan: Continue Supportive care Continuious Telemetry monitoring Monitor BP Resumed home Lisinopril 40mg daily and Norvasc 10mg daily IV hydralazine when necessary POC BG monitoring HgA1C 7.6 ASA 81mg Continue Lipitor 20mg q HS Cardiology consulted Gentle hydration with NS@ 75ml/hr Albuterol prn DVT PPX on Lovenox and SCD's History Interval history: Chest pain Hospitalist Physical - Physical exam Narrative exam: Gen: Not in acute distress, lying in bed, HEENT: Normocephalic, atraumatic Neck: supple, no JVD Heart: S1 and S2 reg, rapid., no murmurs, rubs or gallop Lungs: Clear, no crackles, no wheeze Abd: soft, non tender, non distended, normal BS Ext: No edema, no clubbing, no cyanosis, Neuro: Awake,alert, oriented x 3, no focal neurological signs Psych:Normal mood - Constitutional Vitals: Temp Pulse Resp BP Pulse Ox 98.0 F 66 18 183/64 95 02/02/19 12:40 02/02/19 12:46 02/02/19 12:40 02/02/19 12:46 02/02/19 12:40 Results - Labs CBC & Chem 7: 02/01/19 16:35 02/01/19 16:35 Labs: Laboratory Last Values WBC 6.4 K/mm3 (4.5-11.0) 02/01/19 16:35 RBC 4.35 M/mm3 (3.65-5.03) 02/01/19 16:35 Hgb 13.2 gm/dl (10.1-14.3) 02/01/19 16:35 Hct 38.4 % (30.3-42.9) 02/01/19 16:35 MCV 88 fl (79-97) 02/01/19 16:35 MCH 30 pg (28-32) 02/01/19 16:35 MCHC 34 % (30-34) 02/01/19 16:35 RDW 13.3 % (13.2-15.2) 02/01/19 16:35 Plt Count 155 K/mm3 (140-440) 02/01/19 16:35 Lymph % (Auto) 13.5 % (13.4-35.0) 02/01/19 16:35 [place] % (Auto) 4.8 % (0.0-7.3) 02/01/19 16:35 Eos % (Auto) 2.1 % (0.0-4.3) 02/01/19 16:35 Baso % (Auto) 0.5 % (0.0-1.8) 02/01/19 16:35 Lymph # 0.9 K/mm3 (1.2-5.4) L 02/01/19 16:35 [place] # 0.3 K/mm3 (0.0-0.8) 02/01/19 16:35 Eos # 0.1 K/mm3 (0.0-0.4) 02/01/19 16:35 Baso # 0.0 K/mm3 (0.0-0.1) 02/01/19 16:35 Seg Neutrophils % 79.1 % (40.0-70.0) H 02/01/19 16:35 Seg Neutrophils # 5.1 K/mm3 (1.8-7.7) 02/01/19 16:35 Sodium 142 mmol/L (137-145) 02/01/19 16:35 Potassium 4.5 mmol/L (3.6-5.0) 02/01/19 16:35 Chloride 105.5 mmol/L (98-107) 02/01/19 16:35 Carbon Dioxide 25 mmol/L (22-30) 02/01/19 16:35 16 mmol/L 02/01/19 16:35 BUN 18 mg/dL (7-17) H 02/01/19 16:35 0.8 mg/dL (0.7-1.2) 02/01/19 16:35 Estimated GFR > 60 ml/min 02/01/19 16:35 23 % 02/01/19 16:35 Glucose 269 mg/dL (65-100) H 02/01/19 16:35 POC Glucose 350 (70-105) H 02/02/19 12:35 7.6 % (4-6) H 02/01/19 16:35 Calcium 9.0 mg/dL (8.4-10.2) 02/01/19 16:35 0.20 mg/dL (0.1-1.2) 02/01/19 16:35 AST 14 units/L (5-40) 02/01/19 16:35 ALT 11 units/L (7-56) 02/01/19 16:35 107 units/L (35-129) 02/01/19 16:35 < 0.010 ng/mL (0.00-0.029) 02/01/19 22:45 6.1 g/dL (6.3-8.2) L 02/01/19 16:35 3.6 g/dL (3.9-5) L 02/01/19 16:35 1.4 % 02/01/19 16:35 Triglycerides 89 mg/dL (2-149) 02/01/19 22:45 Cholesterol 164 mg/dL (50-199) 02/01/19 22:45 109 mg/dL (50-130) 02/01/19 22:45 45 mg/dL (40-59) 02/01/19 22:45 3.64 % 02/01/19 22:45 Active Medications - Current Medications Current Medications: Generic Name Dose Route Start Last Admin Trade Name Freq PRN Reason Stop Dose Admin Acetaminophen 650 mg 02/01/19 21:44 Tylenol PO Q4H PRN Pain MILD(1-3)/Fever >100.5/SIMMONS Albuterol 2.5 mg 02/01/19 21:44 Proventil IH Q4HRT PRN Shortness Of Breath Amlodipine Besylate 10 mg 02/02/19 10:00 02/02/19 12:43 Norvasc PO 10 mg DAILY [facility] Administration Aspirin 81 mg 02/02/19 10:00 02/02/19 12:44 Baby Aspirin PO 81 mg QDAY [facility] Administration Atorvastatin Calcium 20 mg 02/01/19 22:00 02/01/19 23:05 Lipitor PO 20 mg QHS [facility] Administration Dextrose 50 ml 02/01/19 21:43 D50w (25gm) Syringe IV PRN PRN Hypoglycemia Heparin Sodium (Porcine) 5,000 unit 02/01/19 22:00 02/02/19 12:41 Heparin SUB-Q 5,000 unit Q12HR [facility] Administration Hydromorphone HCl 0.5 mg 02/01/19 21:44 Dilaudid IV 02/02/19 23:59 Q3H PRN Pain , Severe (7-10) Sodium Chloride 1,000 mls @ 75 mls/hr 02/01/19 22:00 02/02/19 11:55 Nacl 0.9% 1000 Ml IV 75 mls/hr DIRECT [facility] Administration Insulin Human Lispro 0 unit 02/02/19 00:00 02/02/19 12:35 Humalog SUB-Q 8 unit Q6HR [facility] Administration Protocol Lisinopril 40 mg 02/02/19 10:00 02/02/19 12:46 Zestril PO 40 mg QDAY [facility] Administration Morphine Sulfate 2 mg 02/01/19 21:44 02/01/19 23:03 Morphine IV 02/02/19 23:59 2 mg Q4H PRN Administration Pain, Moderate (4-6) Nitroglycerin 0.4 mg 02/01/19 21:45 Nitrostat SL Q5M PRN Chest Pain Ondansetron HCl 4 mg 02/01/19 21:44 Zofran IV Q8H PRN Nausea And Vomiting Sodium Chloride 10 ml 02/01/19 22:00 02/02/19 12:35 Sodium Chloride Flush Syringe 10 Ml IV 10 ml BID [facility] Administration Sodium Chloride 10 ml 02/01/19 21:44 Sodium Chloride Flush Syringe 10 Ml IV PRN PRN LINE FLUSH
--- NOTE | 2019-02-02 15:35 | Event Note ---
Date: 02/02/19 Discussed with our economic development manager, Dr Milligan. Patient had a sinus pause less than 3 seconds on telemetry during daytime hours. Patient remained asymptomatic. She had no dizziness, no pre-syncope or no syncope. We will check an echocardiogram, TSH and serum magnesium. Continue telemetry monitoring.
[2019-02-02] MEDS: MORPHINE IV PRN (19:20)
--- NOTE | 2019-02-02 20:27 | Treadmill Report ---
THALLIUM STRESS TEST LEFT VENTRICLE: Left ventricular chamber size is within normal spread. Perfusion study demonstrates homogeneous uptake of the tracer in all segments, no significant perfusion defects identified. Gated analysis demonstrates normal left ventricular systolic function, ejection fraction 71%. CONCLUSION: Normal myocardial perfusion study. JOB# [id number] CA/NTS
[2019-02-03] MEDS: NACL 0.9% 1000 ML 1,000 ML IV SCH ×2 (01:23→23:09)
--- NOTE | 2019-02-03 10:11 | Consultation ---
History of Present Illness Consult date: 02/03/19 Consult reason: chest pain History of present illness: 73 year old female originally from [place] presenting with chest pain. MPI this admission showing no ischemia. During her hospital stay, she was noted to have sinus jase with a 2.9 sec pause. Patient denies syncope, or dizziness. Currently she is running sinus jase on tele with LBBB. She is asymptomatic. Past History Past Medical History: diabetes, hypertension, hyperlipidemia, other (asthma) Past Surgical History: hysterectomy Social history: lives with family Family history: no significant family history Medications and Allergies Allergies Allergy/AdvReac Type Severity Reaction Status Date / Time No Known Allergies Allergy Unverified 10/04/13 18:50 Home Medications Medication Instructions Recorded Confirmed Last Taken Type Lisinopril [Zestril TAB] 40 mg PO QDAY 08/03/17 02/01/19 02/01/19 History amLODIPine [Norvasc] 10 mg PO DAILY 08/03/17 02/01/19 02/01/19 History AtorvaSTATin 40 mg PO HS 02/01/19 02/01/19 02/01/19 History metFORMIN 500 mg BID 02/01/19 02/01/19 02/01/19 History Active Meds: Active Medications Acetaminophen (Tylenol) 650 mg PO Q4H PRN PRN Reason: Pain MILD(1-3)/Fever >100.5/SIMMONS Albuterol (Proventil) 2.5 mg IH Q4HRT PRN PRN Reason: Shortness Of Breath Amlodipine Besylate (Norvasc) 10 mg PO DAILY [facility] Last Admin: 02/02/19 12:43 Dose: 10 mg Documented by: Aspirin (Baby Aspirin) 81 mg PO QDAY [facility] Last Admin: 02/02/19 12:44 Dose: 81 mg Documented by: Atorvastatin Calcium (Lipitor) 20 mg PO QHS [facility] Last Admin: 02/02/19 23:03 Dose: 20 mg Documented by: Dextrose (D50w (25gm) Syringe) 50 ml IV PRN PRN PRN Reason: Hypoglycemia Heparin Sodium (Porcine) (Heparin) 5,000 unit SUB-Q Q12HR [facility] Last Admin: 02/02/19 23:03 Dose: 5,000 unit Documented by: Sodium Chloride (Nacl 0.9% 1000 Ml) 1,000 mls @ 75 mls/hr IV DIRECT [facility] Last Admin: 02/03/19 01:23 Dose: 75 mls/hr Documented by: Insulin Human Lispro (Humalog) 0 unit SUB-Q Q6HR [facility]; Protocol Last Admin: 02/02/19 23:01 Dose: 4 unit Documented by: Lisinopril (Zestril) 40 mg PO QDAY [facility] Last Admin: 02/02/19 12:46 Dose: 40 mg Documented by: Nitroglycerin (Nitrostat) 0.4 mg SL Q5M PRN PRN Reason: Chest Pain Ondansetron HCl (Zofran) 4 mg IV Q8H PRN PRN Reason: Nausea And Vomiting Sodium Chloride (Sodium Chloride Flush Syringe 10 Ml) 10 ml IV BID [facility] Last Admin: 02/02/19 23:02 Dose: 10 ml Documented by: Sodium Chloride (Sodium Chloride Flush Syringe 10 Ml) 10 ml IV PRN PRN PRN Reason: LINE FLUSH Review of Systems All systems: negative Physical Examination Vital Signs Temp Pulse Resp BP Pulse Ox 98.3 F 68 18 157/56 96 02/01/19 15:56 02/01/19 15:56 02/01/19 15:56 02/01/19 15:56 02/01/19 15:56 General appearance: no acute distress HEENT: Positive: PERRL Neck: Positive: neck supple Cardiac: Positive: Reg Rate and Rhythm Lungs: Positive: Normal Exam Abdomen: Positive: Soft Extremities: Present: normal Results 02/01/19 16:35 02/01/19 16:35 - EKG Interpretation EKG: sinus rhythm EKG shows: bradycardia EKG interpretations - Telemetry EKG Rhythm: Sinus Bradycardia Assessment and Plan Atypical chest pain No ischemia by MPI this admission Bradyarrhythmias Sinus bradycardia 2.9 sec pause - asymptomatic Normal TSH LBBB Systemic Hypertension Type II DM Hyperlipidemia Recommendations: Avoid AVN or SN blocking agents May go home cardiac juan and follow-up with EP in 1 week for further evaluation with a 30 day event monitor. Appointment will be scheduled prior to discharge
[2019-02-03] MEDS: ZESTRIL PO SCH (10:53)
[2019-02-03] MEDS: HEPARIN SUB-Q SCH ×2 (10:54→21:26)
[2019-02-03] MEDS: NORVASC PO SCH (10:54)
[2019-02-03] MEDS: BABY ASPIRIN PO SCH (10:54)
[2019-02-03] MEDS: SODIUM CHLORIDE FLUSH SYRINGE 10 ML IV SCH ×2 (10:55→21:26)
[2019-02-03] MEDS: HumaLOG SUB-Q SCH ×3 (12:00→22:37)
--- NOTE | 2019-02-03 15:30 | Cat Scan Report ---
PROCEDURE: CT ABDOMEN PELVIS W CON TECHNIQUE: Computerized axial tomography of the abdomen and pelvis was performed after the IV inject ion of iodinated nonionic contrast. CT DOSE LENGTH PRODUCT: 2010.8 mGycm HISTORY: abdominal pain COMPARISONS: None . FINDINGS: Visualized lower thorax: No significant abnormality. Liver: Normal size and attenuation. Spleen: Scattered calcified granulomas. Gallbladder and biliary system: The gallbladder is surgically absent. Mildly dilated common bile duct , measuring up to 1.5 cm in diameter. No intrahepatic biliary ductal dilatation. Pancreas: Normal. Adrenals: Normal. Kidneys: Normal. GI tract: No evidence of obstruction. Normal small bowel. Normal appendix without surrounding infla mmatory change. Large amount of stool throughout the entire colon. Diverticulosis of the descending a nd sigmoid colon. Questionable area of thickening in the mid sigmoid colon with normal surrounding st randing (series 2, image 151). Lymph nodes and mesentery: Normal. Vasculature: Normal caliber of the abdominal aorta without evidence of aneurysm. Scattered atheroscle rotic plaque and calcification. Bladder: Normal. Reproductive organs: The uterus is surgically absent.. Peritoneum: No free fluid. Musculoskeletal structures: Diffuse osteopenia. No acute fracture or dislocation. There is a hemangio ma in the L4 vertebral body. Soft tissues are normal.. Other: None . IMPRESSION: Focal area of questionable wall thickening in the sigmoid colon, concerning for early diverticulitis. No evidence of perforation or abscess formation. Additional areas of diverticulosis of the descendin g and sigmoid colon. Status post cholecystectomy. Mildly dilated common bile duct that likely represents post cholecystect cleo changes and age-related changes This document is electronically signed by Smiley Yoon MD., February 03 2019 03:27:45 PM ET
--- NOTE | 2019-02-03 15:54 | Progress Note ---
Assessment and Plan Assessment and plan: patient is 73-year-old female with history DM 2, hypertension, questionable asthma who presents to [facility] ED with complaints of substernal chest pain. CTA chest was unrevealing for PE. EKG did not show any acute ischemic abnormalities. CXR unremarkable. Troponin negative 1. Acute chest pain- Stress test negative Acute diverticulitis DM 2- uncontrolled Dehydration Hypertensive urgency HTN Questionable History of asthma Plan: Continue Supportive care Continuious Telemetry monitoring Monitor BP Start levaquin and Flagyl for diverticulitis Consulted and discussed with GI UA, Urine culture Resumed home Lisinopril 40mg daily and Norvasc 10mg daily IV hydralazine when necessary POC BG monitoring HgA1C 7.6 ASA 81mg Continue Lipitor 20mg q HS Cardiology consulted Gentle hydration with NS@ 75ml/hr Albuterol prn DVT PPX on Lovenox and SCD's History Interval history: Chest pain Abdominal pain Hospitalist Physical - Physical exam Narrative exam: Gen: Not in acute distress, lying in bed, HEENT: Normocephalic, atraumatic Neck: supple, no JVD Heart: S1 and S2 reg, rapid., no murmurs, rubs or gallop Lungs: Clear, no crackles, no wheeze Abd: soft, tender lower abd, non distended, normal BS Ext: No edema, no clubbing, no cyanosis, Neuro: Awake,alert, oriented x 3, no focal neurological signs Psych:Normal mood - Constitutional Vitals: Temp Pulse Resp BP Pulse Ox 98.1 F 55 L 18 153/53 98 02/03/19 15:36 02/03/19 15:36 02/03/19 15:36 02/03/19 15:36 02/03/19 15:36 General appearance: Present: no acute distress Results - Labs CBC & Chem 7: 02/01/19 16:35 02/01/19 16:35 Labs: Laboratory Last Values WBC 6.4 K/mm3 (4.5-11.0) 02/01/19 16:35 RBC 4.35 M/mm3 (3.65-5.03) 02/01/19 16:35 Hgb 13.2 gm/dl (10.1-14.3) 02/01/19 16:35 Hct 38.4 % (30.3-42.9) 02/01/19 16:35 MCV 88 fl (79-97) 02/01/19 16:35 MCH 30 pg (28-32) 02/01/19 16:35 MCHC 34 % (30-34) 02/01/19 16:35 RDW 13.3 % (13.2-15.2) 02/01/19 16:35 Plt Count 155 K/mm3 (140-440) 02/01/19 16:35 Lymph % (Auto) 13.5 % (13.4-35.0) 02/01/19 16:35 [place] % (Auto) 4.8 % (0.0-7.3) 02/01/19 16:35 Eos % (Auto) 2.1 % (0.0-4.3) 02/01/19 16:35 Baso % (Auto) 0.5 % (0.0-1.8) 02/01/19 16:35 Lymph # 0.9 K/mm3 (1.2-5.4) L 02/01/19 16:35 [place] # 0.3 K/mm3 (0.0-0.8) 02/01/19 16:35 Eos # 0.1 K/mm3 (0.0-0.4) 02/01/19 16:35 Baso # 0.0 K/mm3 (0.0-0.1) 02/01/19 16:35 Seg Neutrophils % 79.1 % (40.0-70.0) H 02/01/19 16:35 Seg Neutrophils # 5.1 K/mm3 (1.8-7.7) 02/01/19 16:35 Sodium 142 mmol/L (137-145) 02/01/19 16:35 Potassium 4.5 mmol/L (3.6-5.0) 02/01/19 16:35 Chloride 105.5 mmol/L (98-107) 02/01/19 16:35 Carbon Dioxide 25 mmol/L (22-30) 02/01/19 16:35 16 mmol/L 02/01/19 16:35 BUN 18 mg/dL (7-17) H 02/01/19 16:35 0.8 mg/dL (0.7-1.2) 02/01/19 16:35 Estimated GFR > 60 ml/min 02/01/19 16:35 23 % 02/01/19 16:35 Glucose 269 mg/dL (65-100) H 02/01/19 16:35 POC Glucose 142 (70-105) H 02/03/19 07:58 7.6 % (4-6) H 02/01/19 16:35 Calcium 9.0 mg/dL (8.4-10.2) 02/01/19 16:35 Magnesium 1.70 mg/dL (1.7-2.3) 02/02/19 15:12 0.20 mg/dL (0.1-1.2) 02/01/19 16:35 AST 14 units/L (5-40) 02/01/19 16:35 ALT 11 units/L (7-56) 02/01/19 16:35 107 units/L (35-129) 02/01/19 16:35 < 0.010 ng/mL (0.00-0.029) 02/01/19 22:45 6.1 g/dL (6.3-8.2) L 02/01/19 16:35 3.6 g/dL (3.9-5) L 02/01/19 16:35 1.4 % 02/01/19 16:35 Triglycerides 89 mg/dL (2-149) 02/01/19 22:45 Cholesterol 164 mg/dL (50-199) 02/01/19 22:45 109 mg/dL (50-130) 02/01/19 22:45 45 mg/dL (40-59) 02/01/19 22:45 3.64 % 02/01/19 22:45 TSH 2.010 mlU/mL (0.270-4.200) 02/02/19 15:12 Free T4 1.26 ng/dL (0.76-1.46) 02/02/19 15:12 Active Medications - Current Medications Current Medications: Generic Name Dose Route Start Last Admin Trade Name Freq PRN Reason Stop Dose Admin Acetaminophen 650 mg 02/01/19 21:44 Tylenol PO Q4H PRN Pain MILD(1-3)/Fever >100.5/SIMMONS Albuterol 2.5 mg 02/01/19 21:44 Proventil IH Q4HRT PRN Shortness Of Breath Amlodipine Besylate 10 mg 02/02/19 10:00 02/03/19 10:54 Norvasc PO 10 mg DAILY [facility] Administration Aspirin 81 mg 02/02/19 10:00 02/03/19 10:54 Baby Aspirin PO 81 mg QDAY [facility] Administration Atorvastatin Calcium 20 mg 02/01/19 22:00 02/02/19 23:03 Lipitor PO 20 mg QHS [facility] Administration Dextrose 50 ml 02/01/19 21:43 D50w (25gm) Syringe IV PRN PRN Hypoglycemia Heparin Sodium (Porcine) 5,000 unit 02/01/19 22:00 02/03/19 10:54 Heparin SUB-Q 5,000 unit Q12HR [facility] Administration Sodium Chloride 1,000 mls @ 75 mls/hr 02/01/19 22:00 02/03/19 01:23 Nacl 0.9% 1000 Ml IV 75 mls/hr DIRECT [facility] Administration Insulin Human Lispro 0 unit 02/02/19 00:00 02/02/19 23:01 Humalog SUB-Q 4 unit Q6HR [facility] Administration Protocol Lisinopril 40 mg 02/02/19 10:00 02/03/19 10:53 Zestril PO 40 mg QDAY [facility] Administration Nitroglycerin 0.4 mg 02/01/19 21:45 Nitrostat SL Q5M PRN Chest Pain Ondansetron HCl 4 mg 02/01/19 21:44 Zofran IV Q8H PRN Nausea And Vomiting Sodium Chloride 10 ml 02/01/19 22:00 02/03/19 10:55 Sodium Chloride Flush Syringe 10 Ml IV 10 ml BID [facility] Administration Sodium Chloride 10 ml 02/01/19 21:44 Sodium Chloride Flush Syringe 10 Ml IV PRN PRN LINE FLUSH Nutrition/Malnutrition Assess - Dietary Evaluation Nutrition/Malnutrition Findings: Nutrition Notes Start: 02/02/19 16:01 Freq: Status: Active Protocol: Document 02/02/19 16:02 RM (Rec: 02/02/19 16:07 RM [id number]) Nutrition Notes Need for Assessment generated from: MD Order,Education Initial or Follow up Brief Note Current Diagnosis Acute Kidney Injury,Diabetes, Hypertension,Hyperlipidemia Labs/Tests A1c 7.6 Pertinent Medications Reviewed Height 5 ft 5 in Weight 63.503 kg Ward Body Weight (kg) 56.81 BMI 23.3 Subjective/Other Information Consulted for DM diet education. Pt and pt daugther in room at time of visit. Pt speaks only Beninese so education was provided to daughter. Daughter stated that pt has been previoulsy educated but daughter has not. Stated that pt's A1c was 11 previously but it has been coming down. Reviewed DM diet education. Gave handout. Nutrition Intervention Teaching Recipient Family Learning Readiness Good Teaching Methods Discussion,Handout Response to Teaching Verbalize understanding Education Handouts Provided Carbohydrate Counting for People with Diabetes (Beninese version) Barriers to Learning No Barriers RD phone number provided Yes Patient aware of follow up options Yes Goal #1 Utilize carbohydrate counting Revisit per MD consult or patient Sign Off request:
--- NOTE | 2019-02-03 16:59 | Gastroenterology Consultation ---
History of Present Illness - Reason for Consult Consult date: 02/03/19 diverticulitis Requesting physician: ANA RIVERA - History of Present Illness This is a 73 yo Syriac Speaking female admitted for chest pain and underwent cardiac work up with stress test today which was normal. Gi consulted for evaluation of lower abdominal pain. History obtained with daughter translating. Patient has had LLQ abdominal pain for the past 1 week constant and worse after urinating. No diarrhea, constipation, or blood in the stool. No nausea/vomiting or fever/chills. She was treated for UTI about 3 months ago. No prior colonoscopy. No family hx of CRC. Past History Past Medical History: diabetes, hypertension, hyperlipidemia, other (asthma) Past Surgical History: hysterectomy Social history: lives with family Family history: no significant family history Medications and Allergies Allergies Allergy/AdvReac Type Severity Reaction Status Date / Time No Known Allergies Allergy Unverified 10/04/13 18:50 Home Medications Medication Instructions Recorded Confirmed Last Taken Type Lisinopril [Zestril TAB] 40 mg PO QDAY 08/03/17 02/01/19 02/01/19 History amLODIPine [Norvasc] 10 mg PO DAILY 08/03/17 02/01/19 02/01/19 History AtorvaSTATin 40 mg PO HS 02/01/19 02/01/19 02/01/19 History metFORMIN 500 mg BID 02/01/19 02/01/19 02/01/19 History Active Meds: Active Medications Acetaminophen (Tylenol) 650 mg PO Q4H PRN PRN Reason: Pain MILD(1-3)/Fever >100.5/SIMMONS Albuterol (Proventil) 2.5 mg IH Q4HRT PRN PRN Reason: Shortness Of Breath Amlodipine Besylate (Norvasc) 10 mg PO DAILY [facility] Last Admin: 02/03/19 10:54 Dose: 10 mg Documented by: Aspirin (Baby Aspirin) 81 mg PO QDAY [facility] Last Admin: 02/03/19 10:54 Dose: 81 mg Documented by: Atorvastatin Calcium (Lipitor) 20 mg PO QHS [facility] Last Admin: 02/02/19 23:03 Dose: 20 mg Documented by: Dextrose (D50w (25gm) Syringe) 50 ml IV PRN PRN PRN Reason: Hypoglycemia Heparin Sodium (Porcine) (Heparin) 5,000 unit SUB-Q Q12HR [facility] Last Admin: 02/03/19 10:54 Dose: 5,000 unit Documented by: Sodium Chloride (Nacl 0.9% 1000 Ml) 1,000 mls @ 75 mls/hr IV DIRECT [facility] Last Admin: 02/03/19 01:23 Dose: 75 mls/hr Documented by: Metronidazole (Flagyl 500 Mg/100 Ml) 500 mg in 100 mls @ 100 mls/hr IV Q8H [facility]; Protocol Levofloxacin/Dextrose (Levaquin 500mg/100ml) 500 mg in 100 mls @ 100 mls/hr IV Q24H [facility]; Protocol Insulin Human Lispro (Humalog) 0 unit SUB-Q Q6HR [facility]; Protocol Last Admin: 02/02/19 23:01 Dose: 4 unit Documented by: Lisinopril (Zestril) 40 mg PO QDAY [facility] Last Admin: 02/03/19 10:53 Dose: 40 mg Documented by: Nitroglycerin (Nitrostat) 0.4 mg SL Q5M PRN PRN Reason: Chest Pain Ondansetron HCl (Zofran) 4 mg IV Q8H PRN PRN Reason: Nausea And Vomiting Sodium Chloride (Sodium Chloride Flush Syringe 10 Ml) 10 ml IV BID [facility] Last Admin: 02/03/19 10:55 Dose: 10 ml Documented by: Sodium Chloride (Sodium Chloride Flush Syringe 10 Ml) 10 ml IV PRN PRN PRN Reason: LINE FLUSH Medication list reviewed and updated Review of Systems - Review of Systems All systems: negative Constitutional: no weight loss Eyes: deferred Ears, Nose, Throat: deferred Cardiovascular: chest pain Respiratory: no shortness of breath Gastrointestinal: abdominal pain, no nausea, no vomiting, no diarrhea, no constipation, no BRBPR Musculoskeletal: joint pain Neurological: weakness Exam - Constitutional Vital Signs: Temp Pulse Resp BP Pulse Ox 98.1 F 55 L 18 153/53 98 02/03/19 15:36 02/03/19 15:36 02/03/19 15:36 02/03/19 15:36 02/03/19 15:36 General appearance: no acute distress, well-nourished - EENT Eyes: EOM intact ENT: hearing intact, clear oral mucosa, dentition normal - Neck Neck: supple - Respiratory Respiratory effort: normal Respiratory: bilateral: CTA - Breasts Breasts: deferred - Cardiovascular Rhythm: regular Heart Sounds: Present: S1 & S2. Absent: gallop, rub Extremities: pulses intact, No edema, normal color, Full ROM - Gastrointestinal General gastrointestinal: Present: soft, tender (LLQ), non-distended, normal bowel sounds - Integumentary Integumentary: Present: clear, warm, dry - Neurologic Neurological: alert and oriented x3 - Psychiatric Psychiatric: appropriate mood/affect, intact judgment & insight, memory intact - Labs CBC & Chem 7: 02/03/19 16:13 02/03/19 16:13 Lab Results: Laboratory Results - last 24 hr 02/02/19 02/02/19 02/03/19 16:47 21:15 07:58 POC Glucose 131 H 273 H 142 H 02/03/19 16:38 POC Glucose 118 H Assessment and Plan # LLQ abdominal pain # Diverticulitis - LLQ pain x 1 week. Work up so far with CT a/p showing possible focal divertic ulitis which correlates with her clinical symptoms of LLQ. - possible UTI/cystitis with dysuria. - labs from today pending. Rec: - agree with IV antibiotics. started on levaquin/flagyl. - start on clear liquids. - IV fluid as needed. - if pain better controlled, can advance diet tomorrow. - will need colonoscopy in 6-8 weeks. Follow up outpatient. - will sign off. please call with questions. - Patient Problems (1) Diverticulitis Current Visit: Yes Status: Acute
[2019-02-03 17:02] LABS: Hematocrit 41.4 % (30.3-42.9); Hemoglobin 13.9 gm/dl (10.1-14.3); Mean Corpuscular HGB Conc 34 % (30-34); Mean Corpuscular Volume 89 fl (79-97); Platelet Count 137 K/mm3 (140-440); Red Blood Count 4.65 M/mm3 (3.65-5.03); Red Cell Distribution Width 13.4 % (13.2-15.2)
[2019-02-03 17:20] LABS: BUN/Creatinine Ratio 17; Blood Urea Nitrogen 12 mg/dL (7-17); Calcium 9.3 mg/dL (8.4-10.2); Hemolysis Index 3
[2019-02-03] MEDS: FLAGYL 500 MG/100 ML 500 MG/100 ML BAG IV SCH (18:11)
[2019-02-03] MEDS: LEVAQUIN 500MG/100ML 500 MG/100 ML BAG IV SCH (18:11)
[2019-02-03 18:21] LABS: Bacteria,Urine 1+ /HPF (Negative); Bilirubin,Urine NEG (Negative); Blood,Urine NEG (Negative); Color,Urine Straw (Yellow); Hyaline Casts,Urine 1 /LPF; Protein,Urine <15 mg/dL mg/dL (Negative); RBC,Urine < 1.0 /HPF (0.0-6.0); Urobilinogen,Urine < 2.0 mg/dL (<2.0)
[2019-02-04] MEDS: HumaLOG SUB-Q SCH ×4 (02:32→17:56)
[2019-02-04] MEDS: FLAGYL 500 MG/100 ML 500 MG/100 ML BAG IV SCH ×3 (03:23→17:58)
[2019-02-04] MEDS: BABY ASPIRIN PO SCH (11:05)
[2019-02-04] MEDS: SODIUM CHLORIDE FLUSH SYRINGE 10 ML IV SCH ×2 (11:07→23:00)
[2019-02-04] MEDS: NORVASC PO SCH (11:10)
[2019-02-04] MEDS: ZESTRIL PO SCH (11:10)
--- NOTE | 2019-02-04 12:12 | Progress Note ---
Assessment and Plan Assessment and plan: patient is 73-year-old female with history DM 2, hypertension, questionable asthma who presents to [facility] ED with complaints of substernal chest pain. CTA chest was unrevealing for PE. EKG did not show any acute ischemic abnormalities. CXR unremarkable. Troponin negative 1. Acute chest pain- Stress test negative Acute diverticulitis DM 2- uncontrolled Dehydration Hypertensive urgency HTN Questionable History of asthma Plan: Continue Supportive care Continuious Telemetry monitoring Monitor BP Started levaquin and Flagyl for diverticulitis Consulted and discussed with GI UA neg, Resumed home Lisinopril 40mg daily and Norvasc 10mg daily IV hydralazine when necessary POC BG monitoring HgA1C 7.6 ASA 81mg Continue Lipitor 20mg q HS Cardiology following Gentle hydration with NS@ 75ml/hr Albuterol prn DVT PPX on Lovenox and SCD's History Interval history: Chest pain Abdominal pain Hospitalist Physical - Physical exam Narrative exam: Gen: Not in acute distress, lying in bed, HEENT: Normocephalic, atraumatic Neck: supple, no JVD Heart: S1 and S2 reg, rapid., no murmurs, rubs or gallop Lungs: Clear, no crackles, no wheeze Abd: soft, tender lower abd, non distended, normal BS Ext: No edema, no clubbing, no cyanosis, Neuro: Awake,alert, oriented x 3, no focal neurological signs Psych:Normal mood - Constitutional Vitals: Temp Pulse Resp BP Pulse Ox 97.9 F 56 L 18 159/53 96 02/04/19 12:05 02/04/19 12:05 02/04/19 12:05 02/04/19 12:05 02/04/19 12:05 General appearance: Present: no acute distress Results - Labs CBC & Chem 7: 02/03/19 16:13 02/03/19 16:13 Labs: Laboratory Last Values WBC 5.3 K/mm3 (4.5-11.0) 02/03/19 16:13 RBC 4.65 M/mm3 (3.65-5.03) 02/03/19 16:13 Hgb 13.9 gm/dl (10.1-14.3) 02/03/19 16:13 Hct 41.4 % (30.3-42.9) 02/03/19 16:13 MCV 89 fl (79-97) 02/03/19 16:13 MCH 30 pg (28-32) 02/03/19 16:13 MCHC 34 % (30-34) 02/03/19 16:13 RDW 13.4 % (13.2-15.2) 02/03/19 16:13 Plt Count 137 K/mm3 (140-440) L 02/03/19 16:13 Lymph % (Auto) 13.5 % (13.4-35.0) 02/01/19 16:35 [place] % (Auto) 4.8 % (0.0-7.3) 02/01/19 16:35 Eos % (Auto) 2.1 % (0.0-4.3) 02/01/19 16:35 Baso % (Auto) 0.5 % (0.0-1.8) 02/01/19 16:35 Lymph # 0.9 K/mm3 (1.2-5.4) L 02/01/19 16:35 [place] # 0.3 K/mm3 (0.0-0.8) 02/01/19 16:35 Eos # 0.1 K/mm3 (0.0-0.4) 02/01/19 16:35 Baso # 0.0 K/mm3 (0.0-0.1) 02/01/19 16:35 Seg Neutrophils % 79.1 % (40.0-70.0) H 02/01/19 16:35 Seg Neutrophils # 5.1 K/mm3 (1.8-7.7) 02/01/19 16:35 Sodium 141 mmol/L (137-145) 02/03/19 16:13 Potassium 3.9 mmol/L (3.6-5.0) 02/03/19 16:13 Chloride 103.6 mmol/L (98-107) 02/03/19 16:13 Carbon Dioxide 27 mmol/L (22-30) 02/03/19 16:13 14 mmol/L 02/03/19 16:13 BUN 12 mg/dL (7-17) 02/03/19 16:13 0.7 mg/dL (0.7-1.2) 02/03/19 16:13 Estimated GFR > 60 ml/min 02/03/19 16:13 17 % 02/03/19 16:13 Glucose 129 mg/dL (65-100) H 02/03/19 16:13 POC Glucose 172 (70-105) H 02/04/19 07:52 7.6 % (4-6) H 02/01/19 16:35 Calcium 9.3 mg/dL (8.4-10.2) 02/03/19 16:13 Magnesium 1.70 mg/dL (1.7-2.3) 02/02/19 15:12 0.20 mg/dL (0.1-1.2) 02/01/19 16:35 AST 14 units/L (5-40) 02/01/19 16:35 ALT 11 units/L (7-56) 02/01/19 16:35 107 units/L (35-129) 02/01/19 16:35 < 0.010 ng/mL (0.00-0.029) 02/01/19 22:45 6.1 g/dL (6.3-8.2) L 02/01/19 16:35 3.6 g/dL (3.9-5) L 02/01/19 16:35 1.4 % 02/01/19 16:35 Triglycerides 89 mg/dL (2-149) 02/01/19 22:45 Cholesterol 164 mg/dL (50-199) 02/01/19 22:45 109 mg/dL (50-130) 02/01/19 22:45 45 mg/dL (40-59) 02/01/19 22:45 3.64 % 02/01/19 22:45 TSH 2.010 mlU/mL (0.270-4.200) 02/02/19 15:12 Free T4 1.26 ng/dL (0.76-1.46) 02/02/19 15:12 Straw (Yellow) 02/03/19 17:30 Clear (Clear) 02/03/19 17:30 7.0 (5.0-7.0) 02/03/19 17:30 Ur Specific [place] 1.026 (1.003-1.030) 02/03/19 17:30 <15 mg/dl mg/dL (Negative) 02/03/19 17:30 Neg mg/dL (Negative) 02/03/19 17:30 Tr mg/dL (Negative) 02/03/19 17:30 Neg (Negative) 02/03/19 17:30 Neg (Negative) 02/03/19 17:30 Neg (Negative) 02/03/19 17:30 < 2.0 mg/dL (<2.0) 02/03/19 17:30 Ur Leukocyte Esterase Neg (Negative) 02/03/19 17:30 1.0 /HPF (0.0-6.0) 02/03/19 17:30 < 1.0 /HPF (0.0-6.0) 02/03/19 17:30 U Epithel Cells (Auto) < 1.0 /HPF (0-13.0) 02/03/19 17:30 1+ /HPF (Negative) 02/03/19 17:30 Hyaline Casts 1 /LPF 02/03/19 17:30 Active Medications - Current Medications Current Medications: Generic Name Dose Route Start Last Admin Trade Name Freq PRN Reason Stop Dose Admin Acetaminophen 650 mg 02/01/19 21:44 Tylenol PO Q4H PRN Pain MILD(1-3)/Fever >100.5/SIMMONS Albuterol 2.5 mg 02/01/19 21:44 Proventil IH Q4HRT PRN Shortness Of Breath Amlodipine Besylate 10 mg 02/02/19 10:00 02/04/19 11:10 Norvasc PO 10 mg DAILY BEAU Administration Aspirin 81 mg 02/02/19 10:00 02/04/19 11:05 Baby Aspirin PO 81 mg QDAY BEAU Administration Atorvastatin Calcium 20 mg 02/01/19 22:00 02/03/19 21:26 Lipitor PO 20 mg QHS BEAU Administration Dextrose 50 ml 02/01/19 21:43 D50w (25gm) Syringe IV PRN PRN Hypoglycemia Sodium Chloride 1,000 mls @ 75 mls/hr 02/01/19 22:00 02/03/19 23:09 Nacl 0.9% 1000 Ml IV 75 mls/hr DIRECT BEAU Administration Metronidazole 500 mg in 100 mls @ 100 mls/hr 02/03/19 18:00 02/04/19 11:09 Flagyl 500 Mg/100 Ml IV 100 mls/hr Q8H BEAU Administration Protocol Levofloxacin/Dextrose 500 mg in 100 mls @ 100 mls/hr 02/03/19 18:30 02/03/19 18:11 Levaquin 500mg/100ml IV 100 mls/hr Q24H BEAU Administration Protocol Insulin Human Lispro 0 unit 02/02/19 00:00 02/04/19 02:32 Humalog SUB-Q Not Given Q6HR BEAU Protocol Lisinopril 40 mg 02/02/19 10:00 02/04/19 11:10 Zestril PO 40 mg QDAY BEAU Administration Nitroglycerin 0.4 mg 02/01/19 21:45 Nitrostat SL Q5M PRN Chest Pain Ondansetron HCl 4 mg 02/01/19 21:44 Zofran IV Q8H PRN Nausea And Vomiting Sodium Chloride 10 ml 02/01/19 22:00 02/04/19 11:07 Sodium Chloride Flush Syringe 10 Ml IV 10 ml BID BEAU Administration Sodium Chloride 10 ml 02/01/19 21:44 Sodium Chloride Flush Syringe 10 Ml IV PRN PRN LINE FLUSH Nutrition/Malnutrition Assess - Dietary Evaluation Nutrition/Malnutrition Findings: Nutrition Notes Start: 02/02/19 16:01 Freq: Status: Active Protocol: Document 02/02/19 16:02 RM (Rec: 02/02/19 16:07 RM [id number]) Nutrition Notes Need for Assessment generated from: MD Order,Education Initial or Follow up Brief Note Current Diagnosis Acute Kidney Injury,Diabetes, Hypertension,Hyperlipidemia Labs/Tests A1c 7.6 Pertinent Medications Reviewed Height 5 ft 5 in Weight 63.503 kg [place] Body Weight (kg) 56.81 BMI 23.3 Subjective/Other Information Consulted for DM diet education. Pt and pt daugther in room at time of visit. Pt speaks only Latvian so education was provided to daughter. Daughter stated that pt has been previoulsy educated but daughter has not. Stated that pt's A1c was 11 previously but it has been coming down. Reviewed DM diet education. Gave handout. Nutrition Intervention Teaching Recipient Family Learning Readiness Good Teaching Methods Discussion,Handout Response to Teaching Verbalize understanding Education Handouts Provided Carbohydrate Counting for People with Diabetes (Latvian version) Barriers to Learning No Barriers RD phone number provided Yes Patient aware of follow up options Yes Goal #1 Utilize carbohydrate counting Revisit per MD consult or patient Sign Off request:
--- NOTE | 2019-02-04 13:11 | Progress Note ---
Assessment and Plan - Patient Problems (1) Bradycardia Current Visit: Yes Status: Acute Plan to address problem: Patient with intermittent bradycardia on telemetry monitoring, with as long as 2 second pauses. Baseline ECG is left bundle-branch block. Echocardiogram and thallium stress tests are both unremarkable. On a previous admission 2 years ago, the transient bradycardia was also noted on radiation monitor. The patient is planned for a 30 day event monitor as an outpatient for further evaluation of her bradycardia. Subjective Date of service: 02/04/19 Interval history: Patient is comfortable, no new cardiac complaints. Objective Vital Signs Temp Pulse Resp BP Pulse Ox 02/04/19 12:05 97.9 F 56 L 18 159/53 96 02/04/19 11:09 97 02/04/19 07:48 98.3 F 53 L 18 152/53 99 02/04/19 06:38 54 L 02/04/19 04:33 98.0 F 54 L 18 154/59 100 02/03/19 23:28 98.0 F 54 L 18 150/62 97 02/03/19 22:00 54 L 02/03/19 19:18 98.0 F 60 20 155/51 98 02/03/19 15:36 98.1 F 55 L 18 153/53 98 02/03/19 14:00 48 L - Physical Examination General: No Apparent Distress HEENT: Positive: PERRL Neck: Positive: neck supple Cardiac: Positive: Reg Rate and Rhythm Lungs: Positive: Decreased Breath Sounds Neuro: Positive: Grossly Intact Abdomen: Positive: Soft Skin: Positive: Clear Extremities: Present: normal - Labs and Meds CBC 02/03/19 Range/Units 16:13 WBC 5.3 (4.5-11.0) K/mm3 RBC 4.65 (3.65-5.03) M/mm3 Hgb 13.9 (10.1-14.3) gm/dl Hct 41.4 (30.3-42.9) % Plt Count 137 L (140-440) K/mm3 Comprehensive Metabolic Panel 02/03/19 Range/Units 16:13 Sodium 141 (137-145) mmol/L Potassium 3.9 (3.6-5.0) mmol/L Chloride 103.6 (98-107) mmol/L Carbon Dioxide 27 (22-30) mmol/L BUN 12 (7-17) mg/dL Creatinine 0.7 (0.7-1.2) mg/dL Glucose 129 H (65-100) mg/dL Calcium 9.3 (8.4-10.2) mg/dL - Imaging and Cardiology EKG: image reviewed (6 bpm, left bundle-branch block)
[2019-02-04] MEDS: LEVAQUIN 500MG/100ML 500 MG/100 ML BAG IV SCH (17:58)
[2019-02-05] MEDS: HumaLOG SUB-Q SCH ×3 (00:07→13:41)
[2019-02-05] MEDS ORDERED: APRESOLINE IV PRN (01:34)
[2019-02-05] MEDS: FLAGYL 500 MG/100 ML 500 MG/100 ML BAG IV SCH ×2 (01:50→10:24)
[2019-02-05] MEDS: NACL 0.9% 1000 ML 1,000 ML IV SCH (06:20)
[2019-02-05 08:16] VITALS: BP 165/49
[2019-02-05] MEDS: NORVASC PO SCH (10:24)
[2019-02-05] MEDS: BABY ASPIRIN PO SCH (10:24)
[2019-02-05] MEDS: SODIUM CHLORIDE FLUSH SYRINGE 10 ML IV SCH (10:24)
[2019-02-05] MEDS: ZESTRIL PO SCH (10:24)
--- NOTE | 2019-02-05 12:42 | Discharge Summary ---
Providers - Providers Date of Admission: 02/03/19 15:44 Date of discharge: 02/05/19 Attending physician: ANA RIVERA 02/01/19 21:43 Consult to Dietitian/Nutrition [CONS] Routine Physician Instructions: Reason For Exam: Reason for Consult: Diet education 02/02/19 14:02 Consult to Physician [CONS] Routine Comment: Consulting Provider: HEIDI HERNANDEZ Physician Instructions: Reason For Exam: 2.9 sec pause 02/03/19 15:50 Consult to Physician [CONS] Routine Comment: Consulting Provider: LITZY HOUGH Physician Instructions: Reason For Exam: Diverticulitis [facility] Condition: Fair Hospital course: Patient is 73-year-old female with history DM 2, hypertension, and questionable asthma, who presents to [facility] ED via EMS with complaints of substernal chest pain. So she decided to call EMS. She had profound HTN with BP 238/74 per EMS. She was seen in Ed and admitted. She later complained of abdominal pain and CT abdomen revealed diverticulitis. She was put on Levaquin, Flagyl and GI consulted. She had bradyvardia and 2 sec pause and cardiology evaluated her and recommended outpatient event monitor, She was then discharged home. Total time spent on dicscharge, 32 mins Disposition: DC-01 TO HOME OR SELFCARE - Discharge Diagnoses (1) Acute diverticulitis Status: Acute (2) Bradycardia Status: Acute (3) Chest pain Status: Acute Qualifiers: Chest pain type: unspecified Qualified Code(s): R07.9 - Chest pain, unspecified (4) Hypertensive urgency Status: Acute (5) HTN (hypertension) Status: Chronic Qualifiers: Hypertension type: essential hypertension Qualified Code(s): I10 - Essential (primary) hypertension (6) Diabetes mellitus type 2 in obese Status: Acute (7) Dehydration Status: Acute (8) GERD (gastroesophageal reflux disease) Status: Acute Core Measure Documentation - Palliative Care Palliative Care/ Comfort Measures: Not Applicable - Core Measures Any of the following diagnoses?: none Exam - Constitutional Vitals: Temp Pulse Resp BP Pulse Ox 97.9 F 67 18 165/49 95 02/05/19 08:09 02/05/19 11:07 02/05/19 10:00 02/05/19 08:09 06/09/19 10:00 Plan Diet: low fat, low cholesterol, low salt, other (soft diet) Additional Instructions: 1.Follow up with PCP in 1 week. 2.Follow up with LANDY Nichols in 2 weeks. 3.Follow up with Dr. Milligan, cardiology in 1 week [facility] - 3-5 Days
--- NOTE | 2019-02-05 13:24 | Progress Note ---
Assessment and Plan - Patient Problems (1) Bradycardia Current Visit: Yes Status: Acute Plan to address problem: Patient with intermittent bradycardia on telemetry monitoring, with as long as 2 second pauses. Baseline ECG is left bundle-branch block. Echocardiogram and thallium stress tests are both unremarkable. On a previous admission 2 years ago, the transient bradycardia was also noted on desk monitor. The patient is planned for a 30 day event monitor as an outpatient for further evaluation of her bradycardia. Subjective Date of service: 02/05/19 Interval history: Patient is comfortable, no new cardiac complaints. No further reported bradycardia on telemetry monitoring. Objective Vital Signs Temp Pulse Pulse Resp BP BP Pulse Ox 02/05/19 11:07 67 02/05/19 10:00 67 18 95 02/05/19 08:09 97.9 F 67 18 165/49 95 02/05/19 08:08 99 02/05/19 06:15 98.2 F 70 17 143/82 95 02/05/19 03:40 98.2 F 67 18 164/47 96 02/05/19 01:50 67 164/59 02/04/19 20:36 59 L 02/04/19 20:22 98.0 F 66 20 169/51 95 02/04/19 16:32 97.9 F 59 L 18 158/45 95 - Physical Examination General: No Apparent Distress HEENT: Positive: PERRL Neck: Positive: neck supple Cardiac: Positive: Reg Rate and Rhythm Lungs: Positive: Decreased Breath Sounds Neuro: Positive: Grossly Intact Abdomen: Positive: Soft Skin: Positive: Clear Extremities: Present: normal - Imaging and Cardiology EKG: image reviewed (6 bpm, left bundle-branch block)
== END 2019-02-05 15:59 | disposition home or self-care (01) | DRG 683 ==
LOC: ED 15:35 → 4A 20:23 → OBSVTOIN 02-03 15:44
PROVIDERS: ADMIT Internal Medicine; ATTEND Internal Medicine
DX: N17.9 Acute kidney failure, unspecified (principal); K57.92 Diverticulitis of intestine, part unspecified, without perforation or abscess without bleeding; I16.0 Hypertensive urgency; R07.89 Other chest pain; R00.1 Bradycardia, unspecified; I10 Essential (primary) hypertension; E86.0 Dehydration; E11.65 Type 2 diabetes mellitus with hyperglycemia; J45.909 Unspecified asthma, uncomplicated; I44.7 Left bundle-branch block, unspecified; E78.5 Hyperlipidemia, unspecified; Z90.710 Acquired absence of both cervix and uterus; Z79.899 Other long term (current) drug therapy
CPT/HCPCS: 36415; 71045; 71275; 74177; 78452; 80048; 80053; 80061; 81001; 82962; 83036; 83735; 84439; 84443; 84484; 85025; 85027; 87040; 87086; 93005; 93010; 93017; 93306; 94760; 96374; G0378; A9270-GY; A9502; J0360; J1644; J1815; J1956; J2270; J2785; J7030; Q9967

== ENCOUNTER 2019-02-14 11:36 | Inpatient (IN) | payer MEDICARE ==
--- NOTE | 2019-02-14 12:06 | Emergency Department Report ---
ED Chest Pain HPI - General Chief Complaint: Chest Pain Stated Complaint: CHEST PAIN Time Seen by Provider: 02/14/19 11:47 Source: patient, family, EMS Mode of arrival: Stretcher Limitations: Language Barrier - History of Present Illness Initial Comments: Mrs. Davila is a 73-year-old female with history of diabetes mellitus, malignant hypertension who presents with recurrent chest pain. She was recently admitted last week for chest pain. She was seen by electrical engineering professor Dr. Milligan today at [facility] for f/u since hospital discharge. With 10 out 10 chest pain, ACS was a concern. Sent to the ED via EMS from the cardiology office. Pain is intermittent. Pain has been quite frequent since discharge. Associated with dyspnea. Sometimes associated with cough. I have reviewed electronic medical record. Patient had normal myocardial perfusion study, ejection fraction of 71% during recent hospitalization. CTA: Performed earlier this month no evidence of PE no acute abnormality MD Complaint: chest pain -: week(s) Onset: during rest Pain Location: substernal Pain Radiation: none Severity scale (0 -10): 5 Quality: tightness, heaviness Consistency: intermittent Improves With: nothing Worsens With: nothing re: dyspnea Other Symptoms: cough - Related Data Home Medications Medication Instructions Recorded Confirmed Last Taken Lisinopril [Zestril TAB] 40 mg PO QDAY 08/03/17 02/01/19 02/01/19 amLODIPine [Norvasc] 10 mg PO DAILY 08/03/17 02/01/19 02/01/19 AtorvaSTATin 40 mg PO HS 02/01/19 02/01/19 02/01/19 metFORMIN 500 mg BID 02/01/19 02/01/19 02/01/19 Previous Rx's Medication Instructions Recorded Last Taken Type levoFLOXacin [Levaquin TAB] 500 mg PO QDAY #8 tablet 02/05/19 Unknown Rx metroNIDAZOLE [Flagyl] 500 mg PO Q8HR #24 tablet 02/05/19 Unknown Rx Allergies Allergy/AdvReac Type Severity Reaction Status Date / Time No Known Allergies Allergy Unverified 10/04/13 18:50 Heart Score - HEART Score History: Moderately suspicious EKG: Non-specific Age: > 65 Risk factors: 1-2 risk factors Troponin: < normal limit HEART Score: 5 ED Review of Systems ROS: Stated complaint: CHEST PAIN Other details as noted in HPI Comment: All other systems reviewed and negative Constitutional: denies: fever, malaise Respiratory: cough, shortness of breath Cardiovascular: chest pain ED Past Medical Hx - Past Medical History Previous Medical History?: Yes Hx Hypertension: Yes Hx Diabetes: Yes - Surgical History Past Surgical History?: Yes Additional Surgical History: Hysterectomy - Social History Smoking Status: Never Smoker Substance Use Type: None - Medications Home Medications: Home Medications Medication Instructions Recorded Confirmed Last Taken Type Lisinopril [Zestril TAB] 40 mg PO QDAY 08/03/17 02/01/19 02/01/19 History amLODIPine [Norvasc] 10 mg PO DAILY 08/03/17 02/01/19 02/01/19 History AtorvaSTATin 40 mg PO HS 02/01/19 02/01/19 02/01/19 History metFORMIN 500 mg BID 02/01/19 02/01/19 02/01/19 History levoFLOXacin [Levaquin TAB] 500 mg PO QDAY #8 tablet 02/05/19 Unknown Rx metroNIDAZOLE [Flagyl] 500 mg PO Q8HR #24 tablet 02/05/19 Unknown Rx ED Physical Exam - General Limitations: Language Barrier General appearance: alert, in no apparent distress - Head Head exam: Present: atraumatic, normocephalic - Eye Eye exam: Present: normal appearance - ENT ENT exam: Present: mucous membranes moist - Neck Neck exam: Present: normal inspection, full ROM - Respiratory Respiratory exam: Present: normal lung sounds bilaterally. Absent: respiratory distress, wheezes, rales, rhonchi - Cardiovascular Cardiovascular Exam: Present: regular rate, normal rhythm, normal heart sounds. Absent: systolic murmur, diastolic murmur, rubs, gallop - GI/Abdominal GI/Abdominal exam: Present: soft, normal bowel sounds. Absent: distended, tenderness, guarding, rebound - Extremities Exam Extremities exam: Present: normal inspection - Back Exam Back exam: Present: normal inspection - Neurological Exam Neurological exam: Present: alert, oriented X3 - Psychiatric Psychiatric exam: Present: normal affect, normal mood - Skin Skin exam: Present: warm, dry, intact, normal color. Absent: rash ED Course Vital Signs 02/14/19 02/14/19 02/14/19 11:44 11:46 11:49 Temperature 98.5 F 98.5 F Pulse Rate 65 70 62 Respiratory 11 L 14 14 Rate Blood Pressure 187/65 187/65 Blood Pressure 187/65 [Left] O2 Sat by Pulse 99 99 98 Oximetry 02/14/19 02/14/19 11:54 12:16 Temperature Pulse Rate 50 L Respiratory 17 12 Rate Blood Pressure 174/64 Blood Pressure [Left] O2 Sat by Pulse 96 99 Oximetry SHARON score - Sharon Score Age > 65: (1) Yes Aspirin use within the Past 7 Days: (1) Yes 3 or more CAD Risk Factors: (1) Yes 2 or more Angina events in past 24 hrs: (1) Yes Known CAD with more than 50% Stenosis: (0) No Elevated Cardiac Markers: (0) No ST Deviation Greater than 0.5mm: (0) No SHARON Score: 4 ED Medical Decision Making - Lab Data Result diagrams: 02/14/19 11:54 02/14/19 11:54 - EKG Data 02/14/19 12:06 EKG obtained 1143 Normal sinus rhythm left bundle branch block no significant ST elevation normal axis prolonged QT interval - Radiology Data Radiology results: report reviewed According to radiology impression portable chest radiograph no acute process - Medical Decision Making Mrs. Davila presents with recurrent severe chest pain and hypertension. Admitted to hospitalist service. Plan for cardiac cath tomorrow. Dr. Maynard electrical engineering professor consulted. Critical care attestation.: If time is entered above; I have spent that time in minutes in the direct care of this critically ill patient, excluding procedure time. ED Disposition Clinical Impression: Acute coronary syndrome, Hypertensive urgency Disposition: OP ADMIT IP TO THIS HOSP Is pt being admited?: Yes Does the pt Need Aspirin: Yes Condition: Stable
[2019-02-14] MEDS ORDERED: NORMODYNE IV ONE (12:08)
[2019-02-14] MEDS ORDERED: BABY ASPIRIN PO ONE ×2 (12:10→13:21)
[2019-02-14] MEDS ORDERED: ALUM-MAG HYDROX-SIMETH 200-200-20MG/5ML PO ONE (12:11)
--- NOTE | 2019-02-14 12:17 | XRay Report ---
AP CHEST: HISTORY: chest pain AP view of the chest demonstrates a normal mediastinal and cardiac contour with clear lungs and normal bony and soft tissue structures. No significant change since 02/01/19. IMPRESSION: Unremarkable AP chest.
[2019-02-14 12:22] LABS: Basophils % (Auto) 0.4 % (0.0-1.8); Eosinophils # (Auto) 0.1 K/mm3 (0.0-0.4); Eosinophils % (Auto) 2.5 % (0.0-4.3); Hematocrit 41.5 % (30.3-42.9); Lymphocytes # (Auto) 0.7 K/mm3 (1.2-5.4); Lymphocytes % (Auto) 13.2 % (13.4-35.0); Mean Corpuscular HGB Conc 34 % (30-34); Mean Corpuscular Volume 89 fl (79-97); Monocytes # (Auto) 0.3 K/mm3 (0.0-0.8); Monocytes % (Auto) 5.1 % (0.0-7.3); Platelet Count 187 K/mm3 (140-440); Red Blood Count 4.67 M/mm3 (3.65-5.03); Red Cell Distribution Width 13.2 % (13.2-15.2)
[2019-02-14 12:29] LABS: BUN/Creatinine Ratio 15; Blood Urea Nitrogen 12 mg/dL (7-17); Calcium 8.8 mg/dL (8.4-10.2); Hemolysis Index 13
[2019-02-14 12:31] LABS: INR 1.05 (0.87-1.13)
[2019-02-14 12:32] LABS: Partial Thromboplastin Time 24.4 Sec. (24.2-36.6)
[2019-02-14] MEDS ORDERED: NITRO-BID 2% TP ONE ×2 (13:19→13:21)
[2019-02-14] MEDS ORDERED: APRESOLINE ONE (14:02)
[2019-02-14] MEDS ORDERED: APRESOLINE IV ONE (14:03)
--- NOTE | 2019-02-14 15:23 | Event Note ---
Date: 02/14/19 Patient was sent to the ED from our office with chest pain. Please refer to Dr Milligan's office note. Cardiac enzymes are normal. No acute ischemic changes seen on an ECG done in the ED. Patient will be admitted to the hospital and will plan for a cardiac cath tomorrow morning.
[2019-02-14] MEDS: COZAAR PO SCH (15:57)
[2019-02-14] MEDS: NITRO-BID 2% TP SCH (18:49)
--- NOTE | 2019-02-14 21:10 | History and Physical Report ---
History of Present Illness Date of examination: 02/14/19 Date of admission: 02/14/19 13:29 Medications and Allergies Allergies Allergy/AdvReac Type Severity Reaction Status Date / Time No Known Allergies Allergy Unverified 10/04/13 18:50 Home Medications Medication Instructions Recorded Confirmed Last Taken Type AtorvaSTATin [Lipitor] 20 mg PO DAILY 02/14/19 02/14/19 Unknown History Insulin Degludec [Tresiba 14 units SUB-Q DAILY 02/14/19 02/14/19 Unknown History Flextouch U-100] Insulin Detemir [Levemir VIAL] 14 units SUB-Q DAILY 02/14/19 02/14/19 Unknown History Active Meds: Active Medications Aspirin (Baby Aspirin) 81 mg PO QDAY [facility] Enoxaparin Sodium (Lovenox) 70 mg SUB-Q Q12HR BEAU Losartan Potassium (Cozaar) 50 mg PO QDAY [facility] Last Admin: 02/14/19 15:57 Dose: 50 mg Documented by: Nitroglycerin (Nitro-Bid 2%) 1 inch TP QIDNTG [facility]; Protocol Last Admin: 02/14/19 18:49 Dose: 1 inch Documented by: Exam - Constitutional Vitals: Temp Pulse Resp BP Pulse Ox 98.2 F 124 H 24 104/69 98 02/14/19 19:15 02/14/19 20:10 02/14/19 20:10 02/14/19 20:10 02/14/19 20:10 Results - Labs CBC & Chem 7: 02/14/19 11:54 02/14/19 11:54 Labs: Laboratory Last Values WBC 5.1 K/mm3 (4.5-11.0) 02/14/19 11:54 RBC 4.67 M/mm3 (3.65-5.03) 02/14/19 11:54 Hgb 14.0 gm/dl (10.1-14.3) 02/14/19 11:54 Hct 41.5 % (30.3-42.9) 02/14/19 11:54 MCV 89 fl (79-97) 02/14/19 11:54 MCH 30 pg (28-32) 02/14/19 11:54 MCHC 34 % (30-34) 02/14/19 11:54 RDW 13.2 % (13.2-15.2) 02/14/19 11:54 Plt Count 187 K/mm3 (140-440) 02/14/19 11:54 Lymph % (Auto) 13.2 % (13.4-35.0) L 02/14/19 11:54 [place] % (Auto) 5.1 % (0.0-7.3) 02/14/19 11:54 Eos % (Auto) 2.5 % (0.0-4.3) 02/14/19 11:54 Baso % (Auto) 0.4 % (0.0-1.8) 02/14/19 11:54 Lymph # 0.7 K/mm3 (1.2-5.4) L 02/14/19 11:54 [place] # 0.3 K/mm3 (0.0-0.8) 02/14/19 11:54 Eos # 0.1 K/mm3 (0.0-0.4) 02/14/19 11:54 Baso # 0.0 K/mm3 (0.0-0.1) 02/14/19 11:54 Seg Neutrophils % 78.8 % (40.0-70.0) H 02/14/19 11:54 Seg Neutrophils # 4.0 K/mm3 (1.8-7.7) 02/14/19 11:54 PT 13.4 Sec. (12.2-14.9) 02/14/19 11:54 INR 1.05 (0.87-1.13) 02/14/19 11:54 APTT 24.4 Sec. (24.2-36.6) 02/14/19 11:54 Sodium 139 mmol/L (137-145) 02/14/19 11:54 Potassium 4.9 mmol/L (3.6-5.0) 02/14/19 11:54 Chloride 100.0 mmol/L (98-107) 02/14/19 11:54 Carbon Dioxide 27 mmol/L (22-30) 02/14/19 11:54 17 mmol/L 02/14/19 11:54 BUN 12 mg/dL (7-17) 02/14/19 11:54 0.8 mg/dL (0.7-1.2) 02/14/19 11:54 Estimated GFR > 60 ml/min 02/14/19 11:54 15 % 02/14/19 11:54 Glucose 342 mg/dL (65-100) H 02/14/19 11:54 POC Glucose 123 (70-105) H 02/14/19 18:08 Calcium 8.8 mg/dL (8.4-10.2) 02/14/19 11:54 < 0.010 ng/mL (0.00-0.029) 02/14/19 17:43
[2019-02-14] MEDS ORDERED: ZOFRAN IV PRN (21:11)
[2019-02-14] MEDS ORDERED: SODIUM CHLORIDE FLUSH SYRINGE 10 ML IV PRN (21:11)
[2019-02-14] MEDS ORDERED: TYLENOL PO PRN (21:11)
[2019-02-14] MEDS ORDERED: DILAUDID IV PRN (21:11)
[2019-02-14] MEDS: LOVENOX SUB-Q SCH (21:49)
[2019-02-14] MEDS: SODIUM CHLORIDE FLUSH SYRINGE 10 ML IV SCH (21:50)
[2019-02-14] MEDS: NACL 0.9% 1000 ML 1,000 ML IV SCH (21:57)
[2019-02-14] MEDS: PEPCID IV SCH (21:57)
[2019-02-15] MEDS: NITRO-BID 2% TP SCH ×3 (06:24→13:25)
--- NOTE | 2019-02-15 06:27 | History and Physical Report ---
CHIEF COMPLAINT: Left-sided chest pain for the last couple of days. HISTORY OF PRESENT ILLNESS: A 73-year-old Nepali-speaking female with history of hypertension, diabetes, comes in for recurrent chest pain. The patient was recently discharged about 9 days ago from this facility after being evaluated for chest pain. The patient was in her fit model's office, where she was again having chest pain and was sent here for possible left heart catheterization tomorrow. The chest pain is intermittent in nature, 6 on a scale of 1-10. Sharp in nature. Nonradiating. No diaphoresis, no palpitations, no shortness of breath. PAST MEDICAL HISTORY: Significant for hypertension, hyperlipidemia, and type 2 diabetes. PAST SURGICAL HISTORY: Hysterectomy. SOCIAL HISTORY: Does not smoke. No alcohol, no recreational drugs. Lives with family. FAMILY HISTORY: Hypertension and coronary artery disease. CURRENT MEDICATIONS: Lisinopril 40 mg once a day, amlodipine 10 mg once a day, atorvastatin 40 mg daily, metformin 500 b.i.d. REVIEW OF SYSTEMS: Significant for left-sided chest pain. Otherwise, review of systems negative. A 14-point review of systems done. PHYSICAL EXAMINATION: GENERAL: Elderly female, cooperative during examination. VITAL SIGNS: Blood pressure is 125/86, temperature is 97.7, pulse is 115, respirations are 25. HEENT: Unremarkable. Pupils equal and reactive. NECK: Supple, no lymphadenopathy, no thyromegaly. LUNGS: Clear to auscultation and percussion. Good air entry. CARDIOVASCULAR: S1, S2 heard. No gallop, no murmur, no rub. Apical impulse in left fifth intercostal space and midclavicular line. ABDOMEN: Soft and benign. No hepatosplenomegaly. No guarding, no rigidity. Hernial orifices are normal. EXTREMITIES: Good pedal pulses. No pedal edema. CENTRAL NERVOUS SYSTEM: Alert and oriented x 4, nonfocal exam. SKIN: Normal. LABORATORY DATA: CBC is normal. Electrolytes are normal. Glucose is 342. Troponin is less than 0.010. EKG shows normal sinus rhythm, left bundle-branch block, no significant ST elevation. ASSESSMENT AND PLAN: 1. Acute coronary syndrome. The patient started on Lovenox 70 mg subcutaneous q.12 for anticoagulation. The patient is being taken for left heart catheterization tomorrow morning. [facility] consulted. 2. Type 2 diabetes. Continue insulin and coverage. 3. Hyperlipidemia. Continue statins. 4. Hypertension. Continue antihypertensives. 5. Deep venous thrombosis prophylaxis. The patient already on Lovenox. In summary, the patient has acute coronary syndrome, hypertension, type 2 insulin-dependent diabetes, and hyperlipidemia. JOB# [id number] DEBORAH/CAMDEN KIM
[2019-02-15 06:36] LABS: Basophils % (Auto) 0.4 % (0.0-1.8); Eosinophils # (Auto) 0.2 K/mm3 (0.0-0.4); Eosinophils % (Auto) 4.3 % (0.0-4.3); Hematocrit 37.6 % (30.3-42.9); Hemoglobin 12.9 gm/dl (10.1-14.3); Lymphocytes # (Auto) 0.9 K/mm3 (1.2-5.4); Lymphocytes % (Auto) 19.2 % (13.4-35.0); Mean Corpuscular HGB Conc 34 % (30-34); Mean Corpuscular Volume 89 fl (79-97); Monocytes # (Auto) 0.3 K/mm3 (0.0-0.8); Monocytes % (Auto) 6.3 % (0.0-7.3); Platelet Count 173 K/mm3 (140-440); Red Blood Count 4.23 M/mm3 (3.65-5.03); Red Cell Distribution Width 13.6 % (13.2-15.2)
[2019-02-15 06:57] LABS: Calcium 8.7 mg/dL (8.4-10.2)
[2019-02-15] MEDS: HumaLOG SUB-Q SCH ×3 (07:30→17:22)
--- NOTE | 2019-02-15 08:04 | Event Note ---
Date: 02/14/19 See H/p in reports ACS For [facility] in AM
[2019-02-15] MEDS: LOVENOX SUB-Q SCH (10:00)
[2019-02-15] MEDS: BABY ASPIRIN PO SCH ×2 (10:14→13:24)
[2019-02-15] MEDS ORDERED: HALFPRIN EC PO ONE (10:15)
[2019-02-15] MEDS ORDERED: HEPARIN/NS 5000 UNIT/500ML(CATH LAB) 1,000 ML IR ONE (10:30)
[2019-02-15] MEDS ORDERED: HEPARIN 10,000 UNITS/10 ML ONE (10:30)
[2019-02-15] MEDS ORDERED: VERSED ONE (10:31)
[2019-02-15] MEDS ORDERED: XYLOCAINE 2% INFILTRATI ONE (10:31)
[2019-02-15] MEDS ORDERED: NITROGLYCERIN SYRINGE 3 ML ONE (10:31)
[2019-02-15] MEDS ORDERED: SUBLIMAZE ONE (10:31)
[2019-02-15] MEDS ORDERED: CALAN ONE (10:31)
--- NOTE | 2019-02-15 12:02 | Cardiac Catherization Report ---
ATTENDING PHYSICIAN: Go Jeffers MD PROCEDURE: Left heart catheterization. SEDATION START: 11:16. SEDATION END: 11:26. COMPLICATIONS: None. ESTIMATED BLOOD LOSS: Less than 30 mL. ESTIMATED CONTRAST USED: 40 mL. REASON FOR PROCEDURE: The patient is a 73-year-old with multiple risk factors, presenting with typical chest pain. PROCEDURE IN DETAIL: The patient was brought to the cardiac catheterization lab in usual fasting state. The patient was prepped and draped in usual sterile fashion. A 2 mL of 1% lidocaine were injected around the right radial artery. A 6-[place] sheath was placed into the right radial artery via modified Seldinger technique. Next, [place] catheter was advanced over the wire across the aortic valve into the left ventricle. Left ventricular pressures were measured. Left ventriculogram was performed via hand injection and pullback pressure was measured across the aortic valve. The [place] catheter was then engaged into the left main and right coronary arteries and angiography was performed in multiple views. RESULTS: Left main coronary artery is a moderate caliber vessel that bifurcates into the left anterior descending and left circumflex coronary arteries. There is no significant disease within the left main coronary artery. Left anterior descending coronary artery is a moderate to small vessel showing 20% plaquing in the proximal segment with no significant disease into the remainder of the vessels. Left circumflex coronary artery is a moderate to small caliber vessel without significant disease. The right coronary artery is a moderate caliber dominant vessel with no significant disease. Left ventriculogram shows normal ejection fraction 60% with normal wall motion. Aortic pressure is 108/52 mmHg. Left ventricular pressure is 113/5 mmHg and end-diastolic pressure is 9 mmHg. CONCLUSIONS: No significant coronary artery disease in a right dominant system. Normal left ventricular function. Recommend aggressive risk factor modification and maximal medical therapy. JOB# [id number] MR/NTS
[2019-02-15] MEDS: COZAAR PO SCH (13:24)
[2019-02-15] MEDS: PEPCID IV SCH (13:24)
[2019-02-15] MEDS: SODIUM CHLORIDE FLUSH SYRINGE 10 ML IV SCH (13:25)
[2019-02-15] MEDS: NACL 0.9% 1000 ML 1,000 ML IV SCH (13:30)
[2019-02-15 14:48] LABS: Chol/HDL Ratio 2.62 %
--- NOTE | 2019-02-15 16:15 | Discharge Summary ---
Providers - Providers Date of Admission: 02/14/19 13:29 Date of discharge: 02/15/19 Attending physician: MCKENNA PAREDES 02/14/19 13:28 Consult to Physician [CONS] Stat Comment: Consulting Provider: HEIDI HERNANDEZ Physician Instructions: Reason For Exam: ACS 02/15/19 11:32 Consult to Cardiac Rehabilitation [CONS] Routine Reason For Exam: Cardiac Rehab Evaluation Primary care physician: PATTERNMAKER [facility]AL Hospitalization Reason for admission: chest pain Condition: Stable Pertinent studies: Status post left heart catheterization; no significant coronary artery disease in her right dominant system normal LV function Recommend aggressive risk factor modification and medical therapy Chest x-ray; normal study Hospital course: 73-year-old female patient with significant history of type 2 diabetes mellitus hypertension dyslipidemia , was sent from quality control expert's office with history of chest pain , for possible heart Catheterization . Patient was admitted symptomatically managed subsequently underwent left heart catheterization , which which showed normal nonobstructive coronaries with normal LV function . Patient was advised optimization of medications and risk reduction, advised tof/u outpatient for further evaluation upon discharge The patient is comfortable denies chest pain or shortness of breath Vital signs stable physical examination and remarkable Patient is hemodynamically and clinically stable at discharge Plan of care is reviewed with the patient and her daughter Patient is stable at discharge Discharge diagnosis; --Atypical chest pain; probably noncardiac, heart cath nonobstructive coronary disease normal LV function --Chest pain; probably secondary to gastroesophageal reflux disease, Pepcid --Type 2 diabetes mellitus; uncontrolled, Accu-Chek sliding scale coverage ADA diet, longer acting insulin --Hypertension;; moderate controlled, continue current antihypertensives and when necessary meds --Dyslipidemia; initiate lipid-lowering medications --DVT prophylaxis; Lovenox Cardiology cleared for discharge and follow up with him in the office Patient is hemodynamically and clinically stable at discharge Disposition: DC-01 TO HOME OR SELFCARE Time spent for discharge: 32 min Core Measure Documentation - Palliative Care Palliative Care/ Comfort Measures: Not Applicable - Core Measures Any of the following diagnoses?: none Exam - Constitutional Vitals: Temp Pulse Resp BP Pulse Ox 98.8 F 63 14 158/63 98 02/15/19 13:00 02/15/19 13:00 02/15/19 13:00 02/15/19 13:00 02/15/19 13:00 General appearance: Present: no acute distress, well-nourished - EENT Eyes: Present: PERRL, EOM intact - Neck Neck: Present: supple, normal ROM - Respiratory Respiratory effort: normal Respiratory: negative: rales, rhonchi, wheezing - Cardiovascular Rhythm: regular Heart Sounds: Present: S1 & S2 - Extremities Extremities: no ischemia, No edema - Abdominal General gastrointestinal: Present: soft, non-tender, non-distended, normal bowel sounds - Integumentary Integumentary: Present: clear, warm - Musculoskeletal Musculoskeletal: strength equal bilaterally - Psychiatric Psychiatric: appropriate mood/affect, cooperative - Neurologic Neurologic: CNII-XII intact, moves all extremities Plan Activity: advance as tolerated, fall precautions Diet: diabetic Additional Instructions: Fall precautions. If you have Chest pain or shortness of breath contact M.D. or go to emergency room as needed Follow up with: PRIMARY CAREMD [Primary Care Provider] - 3-5 Days ANA STEPHENS MD [Staff Physician] - 7 Days Prescriptions: Aspirin [Aspirin BABY CHEW TAB] 81 mg PO QDAY #30 tab.chew Carvedilol [Coreg] 3.125 mg PO BID #60 tablet Losartan [Cozaar] 50 mg PO QDAY #30 tablet AtorvaSTATin [Lipitor] 20 mg PO DAILY #30 tablet Famotidine [Pepcid] 10 mg PO BID #30 tablet
[2019-02-15 17:15] VITALS: BP 176/52
[2019-02-15] MEDS ORDERED: COREG PO SCH (22:00)
== END 2019-02-15 19:01 | disposition home or self-care (01) | DRG 287 ==
LOC: ED 11:36 → 4A 13:29
PROVIDERS: ADMIT Internal Medicine; ATTEND Internal Medicine
PROC: 4A023N7 Measurement of Cardiac Sampling and Pressure, Left Heart, Percutaneous Approach (ICD-10-PCS; principal; 2019-02-15)
PROC: B2111ZZ Fluoroscopy of Multiple Coronary Arteries using Low Osmolar Contrast (ICD-10-PCS; 2019-02-15)
PROC: B2151ZZ Fluoroscopy of Left Heart using Low Osmolar Contrast (ICD-10-PCS; 2019-02-15)
DX: I16.0 Hypertensive urgency (principal); K21.9 Gastro-esophageal reflux disease without esophagitis; E11.9 Type 2 diabetes mellitus without complications; E78.5 Hyperlipidemia, unspecified; I10 Essential (primary) hypertension; I44.7 Left bundle-branch block, unspecified; Z79.84 Long term (current) use of oral hypoglycemic drugs; Z90.710 Acquired absence of both cervix and uterus
CPT/HCPCS: 36415; 71045; 80048; 80061; 82962; 83036; 84484; 85025; 85610; 85730; 93005; 93010; 93458; G0378; A9270-GY; C1887; C1894; J0360; J1644; J1650; J2250; J3010; J7030; Q9967

== ENCOUNTER 2019-03-16 17:53 | Emergency (ER) | payer MEDICARE ==
--- NOTE | 2019-03-16 18:06 | Event Note ---
ED Screening Note ED Screening Note: Went for routine visit at doctors office, Dr. Chavira elevated blood pressure, elevated blood sugar pt has LLQ pain no N/V/D had a BM this morning +dysuria took her medicaiton, lisinopril 40 mg, losartan 50 mg, carvedilol, amlodipine, and metformin PSHx hysterectomy non smoker non drinker no drug use This initial assessment/diagnostic orders/clinical plan/treatment(s) is/are subject to change based on patients health status, clinical progression and re- assessment by fellow clinical providers in the ED. Further treatment and workup at subsequent clinical providers discretion. Patient/guardian urged not to elope from the ED as their condition may be serious if not clinically assessed and man aged. Initial orders include: labs, UA
[2019-03-16 18:37] LABS: Basophils % (Auto) 0.3 % (0.0-1.8); Eosinophils # (Auto) 0.2 K/mm3 (0.0-0.4); Eosinophils % (Auto) 3.2 % (0.0-4.3); Hematocrit 42.2 % (30.3-42.9); Hemoglobin 14.3 gm/dl (10.1-14.3); Lymphocytes % (Auto) 13.3 % (13.4-35.0); Mean Corpuscular HGB Conc 34 % (30-34); Mean Corpuscular Hemoglobin 30 pg (28-32); Mean Corpuscular Volume 89 fl (79-97); Monocytes # (Auto) 0.4 K/mm3 (0.0-0.8); Monocytes % (Auto) 5.3 % (0.0-7.3); Platelet Count 161 K/mm3 (140-440); Red Blood Count 4.76 M/mm3 (3.65-5.03); Red Cell Distribution Width 13.7 % (13.2-15.2)
[2019-03-16 18:58] LABS: Bilirubin,Urine NEG (Negative); Blood,Urine NEG (Negative); Color,Urine Yellow (Yellow); Mucus,Urine FEW /HPF; Protein,Urine <15 mg/dL mg/dL (Negative)
[2019-03-16 19:13] LABS: Alanine Aminotransferase 13 units/L (7-56); Albumin 4.2 g/dL (3.9-5); BUN/Creatinine Ratio 17; Blood Urea Nitrogen 12 mg/dL (7-17); Calcium 9.6 mg/dL (8.4-10.2); Hemolysis Index 14; Lipase 15 units/L (13-60)
[2019-03-16] MEDS ORDERED: SUBLIMAZE IV ONE (20:52)
[2019-03-16] MEDS ORDERED: ZOFRAN IV ONE (20:52)
--- NOTE | 2019-03-16 21:01 | Emergency Department Report ---
HPI - General Chief Complaint: Hyperglycemia Time Seen by Provider: 03/16/19 18:01 - HPI HPI: Room 24 The pt is a 73 y/o F p/w a cc of Abd pain. Pt c/o sharp LLQ AP that has been intermittent x 4 days. no n/v/d. No F. Pt was dx'd c diverticulitis last month and underwent tx in the hospital. The pt still has Flagyl remaining from Rx given at d/c. Pt scores her pain as MODERATE now ED Past Medical Hx - Past Medical History Previous Medical History?: Yes Hx Hypertension: Yes Hx Diabetes: Yes - Surgical History Past Surgical History?: Yes Additional Surgical History: Hysterectomy - Family History Family history: no significant - Social History Smoking Status: Never Smoker Substance Use Type: None - Medications Home Medications: Home Medications Medication Instructions Recorded Confirmed Last Taken Type Insulin Detemir [Levemir VIAL] 14 units SUB-Q DAILY 02/14/19 02/14/19 Unknown History Aspirin [Aspirin BABY CHEW TAB] 81 mg PO QDAY #30 tab.chew 02/15/19 Unknown Rx AtorvaSTATin [Lipitor] 20 mg PO DAILY #30 tablet 02/15/19 Unknown Rx Carvedilol [Coreg] 3.125 mg PO BID #60 tablet 02/15/19 Unknown Rx Famotidine [Pepcid] 10 mg PO BID #30 tablet 02/15/19 Unknown Rx Losartan [Cozaar] 50 mg PO QDAY #30 tablet 02/15/19 Unknown Rx HYDROcodone/APAP 5-325 [[place] 1 - 2 each PO Q6HR PRN #14 tablet 03/16/19 Unknown Rx 5/325] levoFLOXacin [Levaquin] 750 mg PO QDAY #10 tablet 03/16/19 Unknown Rx metroNIDAZOLE [Flagyl] 500 mg PO Q8HR #30 tablet 03/16/19 Unknown Rx ED Review of Systems ROS: Stated complaint: LT SIDE PAIN/BS/BP Other details as noted in HPI Constitutional: no symptoms reported. denies: fever Eyes: denies: eye pain ENT: denies: throat pain Respiratory: no symptoms reported Cardiovascular: denies: chest pain Endocrine: no symptoms reported Gastrointestinal: abdominal pain. denies: nausea, vomiting, diarrhea Genitourinary: denies: dysuria Musculoskeletal: denies: back pain Neurological: denies: headache Physical Exam - Physical Exam Vital Signs: Vital Signs 03/16/19 18:02 Temperature 98.2 F Pulse Rate 53 L Respiratory 16 Rate Blood Pressure 189/51 O2 Sat by Pulse 99 Oximetry Physical Exam: GEN: WD WN F lying on stretcher in NAD HEENT: EOMI NECK: Trachea midline LUNGS: No resp Distress CV: RRR no m/r/g ABD: TTP LLQ. SKIN: No Diaphoresis NEURO: GCS 15 MS: no CVAT ED Course Vital Signs 03/16/19 18:02 Temperature 98.2 F Pulse Rate 53 L Respiratory 16 Rate Blood Pressure 189/51 O2 Sat by Pulse 99 Oximetry ED Medical Decision Making - Lab Data Result diagrams: 03/16/19 18:10 03/16/19 18:10 Laboratory Tests 03/16/19 03/16/19 03/16/19 18:10 18:10 18:36 WBC 7.7 RBC 4.76 Hgb 14.3 Hct 42.2 MCV 89 MCH 30 MCHC 34 RDW 13.7 Plt Count 161 Lymph % (Auto) 13.3 L [place] % (Auto) 5.3 Eos % (Auto) 3.2 Baso % (Auto) 0.3 Lymph # 1.0 L [place] # 0.4 Eos # 0.2 Baso # 0.0 Seg Neutrophils % 77.9 H Seg Neutrophils # 6.0 Sodium 142 Potassium 4.6 Chloride 100.9 Carbon Dioxide 29 Anion Gap 17 BUN 12 Creatinine 0.7 Estimated GFR > 60 BUN/Creatinine Ratio 17 Glucose 247 H POC Glucose Calcium 9.6 Total Bilirubin 0.40 AST 15 ALT 13 Alkaline Phosphatase 133 H Total Protein 7.3 Albumin 4.2 Albumin/Globulin Ratio 1.4 Lipase 15 Urine Color Yellow Urine Turbidity Clear Urine pH 7.0 Ur Specific [place] 1.019 Urine Protein <15 mg/dl Urine Glucose (UA) 150 Urine Ketones Neg Urine Blood Neg Urine Nitrite Neg Urine Bilirubin Neg Urine Urobilinogen 2.0 Ur Leukocyte Esterase Neg Urine WBC (Auto) 2.0 Urine RBC (Auto) 3.0 U Epithel Cells (Auto) 4.0 Urine Mucus Few 03/16/19 20:47 WBC RBC Hgb Hct MCV MCH MCHC RDW Plt Count Lymph % (Auto) [place] % (Auto) Eos % (Auto) Baso % (Auto) Lymph # [place] # Eos # Baso # Seg Neutrophils % Seg Neutrophils # Sodium Potassium Chloride Carbon Dioxide Anion Gap BUN Creatinine Estimated GFR BUN/Creatinine Ratio Glucose POC Glucose 179 H Calcium Total Bilirubin AST ALT Alkaline Phosphatase Total Protein Albumin Albumin/Globulin Ratio Lipase Urine Color Urine Turbidity Urine pH Ur Specific [place] Urine Protein Urine Glucose (UA) Urine Ketones Urine Blood Urine Nitrite Urine Bilirubin Urine Urobilinogen Ur Leukocyte Esterase Urine WBC (Auto) Urine RBC (Auto) U Epithel Cells (Auto) Urine Mucus - Radiology Data Radiology results: report reviewed (CT Abd/Pel), image reviewed (CT Abd/Pel) [facility] [address] [place] [address] Cat Scan Report Signed Patient: LATRICE BARRETO MR#: [id number] : 1945 Acct:[id number] Age/Sex: 73 / F ADM Date: 03/16/19 Loc: ED Attending Dr: Ordering Physician: SONIDO MARTINEZ Date of Service: 03/16/19 Procedure(s): CT abdomen pelvis wo con Accession Number(s): [id number] cc: SONIDO MARTINEZ CT ABDOMEN AND PELVIS WITHOUT IV CONTRAST INDICATION: LLQ abd pain. COMPARISON: 02/03/2019. TECHNIQUE: All CT scans at this facility use dose modulation, automated exposure control, iterative reconstruction or weight based dosing, when appropriate, to reduce radiation dose to as low as reasonably achievable. FINDINGS: Lung Bases: Clear. Skeletal System: No acute abnormality. Diffuse spondylosis is again noted. L4 vertebral body hemangioma is again noted. ABDOMEN: Liver: Normal. Gallbladder: Removed. Bile Ducts: Normal. Pancreas: Normal. Spleen: Spleen size is at the upper limits of normal, unchanged. Adrenals: Normal. Right Kidney: No acute findings. There is a punctate exophytic posterior cyst. Left Kidney: Normal. Stomach and Bowel: Small hiatal hernia and duodenal diverticulum are again noted. There is no small bowel obstruction. Lymph Nodes: No significant adenopathy. Aorta: No significant abnormality. Additional Findings: None. PELVIS: Colon: There is extensive colonic diverticulosis. There is subtle inflammation in the region of extensive diverticulosis of the proximal sigmoid colon in the left lower quadrant, best seen on coronal image 62. Urinary Bladder and Distal Ureters: Normal. Appendix: Normal. Lymph Nodes: No significant adenopathy. Additional Findings: None. IMPRESSION: 1. Subtle inflammatory change in the region of extensive divertic ulosis of the proximal sigmoid colon is likely due to mild acute diverticulitis. No free fluid or abscess. 2. Incidental findings, as above. Please note this exam was made available to read at 9:08 PM central time. Signer Name: Robert Hsu MD Signed: 03/16/2019 10:13 PM Workstation Name: [id number] Transcribed By: KAYCEE Dictated By: Robert Hsu MD Electronically Authenticated By: Robert Hsu MD Signed Date/Time: 03/16/192212 DD/ 07 TD/TT: - Differential Diagnosis Diverticulitis, UTI, renal colic Critical care attestation.: If time is entered above; I have spent that time in minutes in the direct care of this critically ill patient, excluding procedure time. ED Disposition Clinical Impression: Acute diverticulitis, Acute abdominal pain Disposition: - TO HOME OR SELFCARE Is pt being admited?: No Does the pt Need Aspirin: No Condition: Stable Instructions: Diverticulitis (ED) Prescriptions: metroNIDAZOLE [Flagyl] 500 mg PO Q8HR #30 tablet levoFLOXacin [Levaquin] 750 mg PO QDAY #10 tablet HYDROcodone/APAP 5-325 [[place] 5/325] 1 - 2 each PO Q6HR PRN #14 tablet PRN Reason: Pain Referrals: LITZY HOUGH MD [Staff Physician] - 3-5 Days Time of Disposition: 22:35
--- NOTE | 2019-03-16 22:18 | Cat Scan Report ---
CT ABDOMEN AND PELVIS WITHOUT IV CONTRAST INDICATION: LLQ abd pain. COMPARISON: 02/03/2019. TECHNIQUE: All CT scans at this facility use dose modulation, automated exposure control, iterative reconstructi on or weight based dosing, when appropriate, to reduce radiation dose to as low as reasonably achieva ble. FINDINGS: Lung Bases: Clear. Skeletal System: No acute abnormality. Diffuse spondylosis is again noted. L4 vertebral body hemangi rebeka is again noted. ABDOMEN: Liver: Normal. Gallbladder: Removed. Bile Ducts: Normal. Pancreas: Normal. Spleen: Spleen size is at the upper limits of normal, unchanged. Adrenals: Normal. Right Kidney: No acute findings. There is a punctate exophytic posterior cyst. Left Kidney: Normal. Stomach and Bowel: Small hiatal hernia and duodenal diverticulum are again noted. There is no small b owel obstruction. Lymph Nodes: No significant adenopathy. Aorta: No significant abnormality. Additional Findings: None. PELVIS: Colon: There is extensive colonic diverticulosis. There is subtle inflammation in the region of exten sive diverticulosis of the proximal sigmoid colon in the left lower quadrant, best seen on coronal im age 60. Urinary Bladder and Distal Ureters: Normal. Appendix: Normal. Lymph Nodes: No significant adenopathy. Additional Findings: None. IMPRESSION: 1. Subtle inflammatory change in the region of extensive diverticulosis of the proximal sigmoid colo n is likely due to mild acute diverticulitis. No free fluid or abscess. 2. Incidental findings, as above. Please note this exam was made available to read at 9:08 PM central time. Signer Name: Robert Hsu MD Signed: 03/16/2019 10:13 PM Workstation Name: [id number]
[2019-03-16 22:20] VITALS: BP 145/49
[2019-03-16] MEDS ORDERED: LEVAQUIN PO ONE (22:27)
[2019-03-16] MEDS ORDERED: FLAGYL PO ONE (22:27)
== END 2019-03-16 22:57 | disposition home or self-care (01) ==
LOC: ED 17:53
DX: K57.92 Diverticulitis of intestine, part unspecified, without perforation or abscess without bleeding (principal); I10 Essential (primary) hypertension; E11.9 Type 2 diabetes mellitus without complications; Z90.710 Acquired absence of both cervix and uterus; Z79.899 Other long term (current) drug therapy
CPT/HCPCS: 36415; 74176; 80053; 81001; 82962; 83690; 85025; 96374; 96375; 99284; J2405; J3010

== ENCOUNTER 2019-10-11 09:06 | Emergency (ER) | payer MEDICARE ==
[2019-10-11] MEDS ORDERED: INSULIN REGULAR, HUMAN 100 UNITS/1 ML IV ONE ×2 (09:38→10:56)
[2019-10-11] MEDS ORDERED: SODIUM CHLORIDE 0.9% 1000 ML 1,000 ML IV ONE ×2 (09:38→10:34)
[2019-10-11] MEDS ORDERED: ACETAMINOPHEN 500 MG TAB PO ONE (09:40)
--- NOTE | 2019-10-11 09:40 | Emergency Department Report ---
ED General Adult HPI - General Chief complaint: Extremity Injury, Lower Stated complaint: HIP PAIN Time Seen by Provider: 10/11/19 09:36 Source: EMS Mode of arrival: Stretcher Limitations: No Limitations - History of Present Illness Initial comments: Patient is a 74-year-old female that is brought to the emergency room by her daughter after a fall 2 weeks ago. After the fall the patient was seen and actually hospitalized at [place]. Family reports that she had x-rays and MRIs that revealed no fracture of her hip or leg. The daughter states that the patient has remained in bed and is immobile since the time of the fall. The family states that they have not been giving her pain medication as instructed. In fact, the patient has her discharge instructions from [place] and the patient has gotten none of her medications filled since discharge from [place]. This includes her insulin. On arrival patient's blood sugar was 465. Patient has not taken her insulin for what they said initially several weeks because she was told she only needed it as needed. However when we got the mounted police officer to bedside the patient has not had her insulin since June. It seems like the patient follows up with a clinic near her cell [facility], at [place], and here. It is not clear that the family understands the importance of the patient taking her medications on a daily basis as prescribed. Amberly has been called to bedside, the mounted police officer, and the family understands that taking her medications, checking her blood sugar and following up with her physician is important. On further probing it is clear the pt has not been taking home meds for some time. I'm not sure if this is a language, access, or financial issue. PMH DM HTN HLD RX VIT D lisinopril insulin norvasc asa losartan coreg atorvastatin Severity scale (0 -10): 8 Associated Symptoms: denies other symptoms - Related Data Previous Rx's Medication Instructions Recorded Last Taken Type Aspirin EC [Halfprin EC] 81 mg PO QDAY #30 tablet. 10/11/19 Unknown Rx AtorvaSTATin [Lipitor] 20 mg PO QHS #30 tab 10/11/19 Unknown Rx Ergocalciferol [Vitamin D2] 1 cap PO QWEEK #4 capsule 10/11/19 Unknown Rx Ibuprofen [Motrin] 400 mg PO Q12H PRN #20 tablet 10/11/19 Unknown Rx Insulin Degludec [Tresiba 14 unit SQ DAILY #30 day 10/11/19 Unknown Rx Flextouch U-100] Losartan [Cozaar] 50 mg PO QDAY #30 tablet 10/11/19 Unknown Rx amLODIPine [Norvasc] 10 mg PO DAILY #30 10/11/19 Unknown Rx carvediloL [Coreg] 3.125 mg PO BID #60 tablet 10/11/19 Unknown Rx hydroCHLOROthiazide [HCTZ] 25 mg PO QDAY #30 tablet 10/11/19 Unknown Rx lisinopriL [Zestril TAB] 1 tab PO DAILY #30 each 10/11/19 Unknown Rx metFORMIN [Glucophage] 500 mg PO BID 30 Days #60 each 10/11/19 Unknown Rx Allergies Allergy/AdvReac Type Severity Reaction Status Date / Time No Known Allergies Allergy Verified 10/11/19 09:32 ED Review of Systems ROS: Stated complaint: HIP PAIN Other details as noted in HPI Comment: All other systems reviewed and negative ED Past Medical Hx - Past Medical History Previous Medical History?: Yes Hx Hypertension: Yes Hx Diabetes: Yes - Surgical History Past Surgical History?: Yes Additional Surgical History: Hysterectomy - Family History Family history: no significant - Social History Smoking Status: Never Smoker Substance Use Type: None - Medications Home Medications: Home Medications Medication Instructions Recorded Confirmed Last Taken Type Aspirin EC [Halfprin EC] 81 mg PO QDAY #30 tablet. 10/11/19 Unknown Rx AtorvaSTATin [Lipitor] 20 mg PO QHS #30 tab 10/11/19 Unknown Rx Ergocalciferol [Vitamin D2] 1 cap PO QWEEK #4 capsule 10/11/19 Unknown Rx Ibuprofen [Motrin] 400 mg PO Q12H PRN #20 tablet 10/11/19 Unknown Rx Insulin Degludec [Tresiba 14 unit SQ DAILY #30 day 10/11/19 Unknown Rx Flextouch U-100] Losartan [Cozaar] 50 mg PO QDAY #30 tablet 10/11/19 Unknown Rx amLODIPine [Norvasc] 10 mg PO DAILY #30 10/11/19 Unknown Rx carvediloL [Coreg] 3.125 mg PO BID #60 tablet 10/11/19 Unknown Rx hydroCHLOROthiazide [HCTZ] 25 mg PO QDAY #30 tablet 10/11/19 Unknown Rx lisinopriL [Zestril TAB] 1 tab PO DAILY #30 each 10/11/19 Unknown Rx metFORMIN [Glucophage] 500 mg PO BID 30 Days #60 each 10/11/19 Unknown Rx ED Physical Exam - General Limitations: Language Barrier General appearance: alert, in no apparent distress - Head Head exam: Present: atraumatic, normocephalic - Eye Eye exam: Present: normal appearance - ENT ENT exam: Present: mucous membranes moist - Neck Neck exam: Present: normal inspection - Respiratory Respiratory exam: Present: normal lung sounds bilaterally. Absent: respiratory distress - Cardiovascular Cardiovascular Exam: Present: regular rate, normal rhythm. Absent: systolic murmur, diastolic murmur, rubs, gallop - GI/Abdominal GI/Abdominal exam: Present: soft, normal bowel sounds - Extremities Exam Extremities exam: Present: normal inspection - Back Exam Back exam: Present: normal inspection - Neurological Exam Neurological exam: Present: alert, oriented X3 - Psychiatric Psychiatric exam: Present: normal affect, normal mood - Skin Skin exam: Present: warm, dry, intact, normal color. Absent: rash ED Course Vital Signs 10/11/19 10/11/19 10/11/19 09:30 11:30 12:45 Temperature 97.9 F Pulse Rate 74 80 70 Respiratory 16 16 16 Rate Blood Pressure 193/78 154/67 189/74 [Left] O2 Sat by Pulse 96 98 96 Oximetry 10/11/19 13:30 Temperature Pulse Rate 74 Respiratory 16 Rate Blood Pressure 161/81 [Left] O2 Sat by Pulse 96 Oximetry - Reevaluation(s) Reevaluation #1: 10/11/19 pain was able to move wo difficulty after getting medicated with otc tylenol in the ER ED Medical Decision Making - Lab Data Result diagrams: 10/11/19 09:46 10/11/19 09:46 - Radiology Data Radiology results: report reviewed, image reviewed - Medical Decision Making Lab Results 10/11/19 10/11/19 10/11/19 Range/Units 09:46 09:46 09:46 WBC 7.1 (4.5-11.0) K/mm3 RBC 4.96 (3.65-5.03) M/mm3 Hgb 14.8 H (10.1-14.3) gm/dl Hct 43.4 H (30.3-42.9) % MCV 88 (79-97) fl MCH 30 (28-32) pg MCHC 34 (30-34) % RDW 13.9 (13.2-15.2) % Plt Count 162 (140-440) K/mm3 Lymph % (Auto) 8.7 L (13.4-35.0) % [place] % (Auto) 5.7 (0.0-7.3) % Eos % (Auto) 2.2 (0.0-4.3) % Baso % (Auto) 0.5 (0.0-1.8) % Lymph # 0.6 L (1.2-5.4) K/mm3 [place] # 0.4 (0.0-0.8) K/mm3 Eos # 0.2 (0.0-0.4) K/mm3 Baso # 0.0 (0.0-0.1) K/mm3 Seg Neutrophils % 82.9 H (40.0-70.0) % Seg Neutrophils # 5.9 (1.8-7.7) K/mm3 VBG pH 7.427 H (7.320-7.420) Sodium 133 L (137-145) mmol/L Potassium 4.3 (3.6-5.0) mmol/L Chloride 97.3 L (98-107) mmol/L Carbon Dioxide 19 L (22-30) mmol/L Anion Gap 21 mmol/L BUN 33 H (7-17) mg/dL Creatinine 0.8 (0.7-1.2) mg/dL Estimated GFR > 60 ml/min BUN/Creatinine Ratio 41 % Glucose 514 H* (65-100) mg/dL POC Glucose (70-105) Calcium 9.0 (8.4-10.2) mg/dL Total Bilirubin 0.50 (0.1-1.2) mg/dL AST 13 (5-40) units/L ALT 13 (7-56) units/L Alkaline Phosphatase 150 H (35-129) units/L Total Protein 6.2 L (6.3-8.2) g/dL Albumin 3.3 L (3.9-5) g/dL Albumin/Globulin Ratio 1.1 % Urine Color (Yellow) Urine Turbidity (Clear) Urine pH (5.0-7.0) Ur Specific [place] (1.003-1.030) Urine Protein (Negative) mg/dL Urine Glucose (UA) (Negative) mg/dL Urine Ketones (Negative) mg/dL Urine Blood (Negative) Urine Nitrite (Negative) Urine Bilirubin (Negative) Urine Urobilinogen (<2.0) mg/dL Ur Leukocyte Esterase (Negative) Urine WBC (Auto) (0.0-6.0) /HPF Urine RBC (Auto) (0.0-6.0) /HPF Urine Mucus /HPF 10/11/19 10/11/19 10/11/19 Range/Units 10:17 11:04 11:05 WBC (4.5-11.0) K/mm3 RBC (3.65-5.03) M/mm3 Hgb (10.1-14.3) gm/dl Hct (30.3-42.9) % MCV (79-97) fl MCH (28-32) pg MCHC (30-34) % RDW (13.2-15.2) % Plt Count (140-440) K/mm3 Lymph % (Auto) (13.4-35.0) % [place] % (Auto) (0.0-7.3) % Eos % (Auto) (0.0-4.3) % Baso % (Auto) (0.0-1.8) % Lymph # (1.2-5.4) K/mm3 [place] # (0.0-0.8) K/mm3 Eos # (0.0-0.4) K/mm3 Baso # (0.0-0.1) K/mm3 Seg Neutrophils % (40.0-70.0) % Seg Neutrophils # (1.8-7.7) K/mm3 VBG pH (7.320-7.420) Sodium (137-145) mmol/L Potassium (3.6-5.0) mmol/L Chloride (98-107) mmol/L Carbon Dioxide (22-30) mmol/L Anion Gap mmol/L BUN (7-17) mg/dL Creatinine (0.7-1.2) mg/dL Estimated GFR ml/min BUN/Creatinine Ratio % Glucose (65-100) mg/dL POC Glucose 439 H 440 H 432 H (70-105) Calcium (8.4-10.2) mg/dL Total Bilirubin (0.1-1.2) mg/dL AST (5-40) units/L ALT (7-56) units/L Alkaline Phosphatase (35-129) units/L Total Protein (6.3-8.2) g/dL Albumin (3.9-5) g/dL Albumin/Globulin Ratio % Urine Color (Yellow) Urine Turbidity (Clear) Urine pH (5.0-7.0) Ur Specific [place] (1.003-1.030) Urine Protein (Negative) mg/dL Urine Glucose (UA) (Negative) mg/dL Urine Ketones (Negative) mg/dL Urine Blood (Negative) Urine Nitrite (Negative) Urine Bilirubin (Negative) Urine Urobilinogen (<2.0) mg/dL Ur Leukocyte Esterase (Negative) Urine WBC (Auto) (0.0-6.0) /HPF Urine RBC (Auto) (0.0-6.0) /HPF Urine Mucus /HPF 10/11/19 10/11/19 Range/Units 11:22 12:11 WBC (4.5-11.0) K/mm3 RBC (3.65-5.03) M/mm3 Hgb (10.1-14.3) gm/dl Hct (30.3-42.9) % MCV (79-97) fl MCH (28-32) pg MCHC (30-34) % RDW (13.2-15.2) % Plt Count (140-440) K/mm3 Lymph % (Auto) (13.4-35.0) % [place] % (Auto) (0.0-7.3) % Eos % (Auto) (0.0-4.3) % Baso % (Auto) (0.0-1.8) % Lymph # (1.2-5.4) K/mm3 [place] # (0.0-0.8) K/mm3 Eos # (0.0-0.4) K/mm3 Baso # (0.0-0.1) K/mm3 Seg Neutrophils % (40.0-70.0) % Seg Neutrophils # (1.8-7.7) K/mm3 VBG pH (7.320-7.420) Sodium (137-145) mmol/L Potassium (3.6-5.0) mmol/L Chloride (98-107) mmol/L Carbon Dioxide (22-30) mmol/L Anion Gap mmol/L BUN (7-17) mg/dL Creatinine (0.7-1.2) mg/dL Estimated GFR ml/min BUN/Creatinine Ratio % Glucose (65-100) mg/dL POC Glucose 331 H (70-105) Calcium (8.4-10.2) mg/dL Total Bilirubin (0.1-1.2) mg/dL AST (5-40) units/L ALT (7-56) units/L Alkaline Phosphatase (35-129) units/L Total Protein (6.3-8.2) g/dL Albumin (3.9-5) g/dL Albumin/Globulin Ratio % Urine Color Yellow (Yellow) Urine Turbidity Clear (Clear) Urine pH 5.0 (5.0-7.0) Ur Specific [place] 1.026 (1.003-1.030) Urine Protein 30 mg/dl (Negative) mg/dL Urine Glucose (UA) >=500 (Negative) mg/dL Urine Ketones 20 (Negative) mg/dL Urine Blood Neg (Negative) Urine Nitrite Neg (Negative) Urine Bilirubin Neg (Negative) Urine Urobilinogen < 2.0 (<2.0) mg/dL Ur Leukocyte Esterase Neg (Negative) Urine WBC (Auto) 1.0 (0.0-6.0) /HPF Urine RBC (Auto) 1.0 (0.0-6.0) /HPF Urine Mucus Few /HPF Vital Signs 10/11/19 09:30 Temperature 97.9 F Pulse Rate 74 Respiratory 16 Rate Blood Pressure 193/78 [Left] O2 Sat by Pulse 96 Oximetry Medicated with 2L NS/ reg insulin x 2 and bs trending down dosed with lantus insulin prior to dc pt reports dec pain p tylenol fitness plan coordinator utilized to educate pt and family on med compliance, instructions and follow up with MD. labs noted Ph normal xray noted normal blood sugar trending down Rx given for all of the pts meds as written per dc instructions at [place] on dc. On dc VSS. no cp. no sob. reports feeling better. - Differential Diagnosis ro fx/ ro dka Critical care attestation.: If time is entered above; I have spent that time in minutes in the direct care of this critically ill patient, excluding procedure time. ED Disposition Clinical Impression: Hyperglycemia, Diabetes mellitus type 2 in obese, Leg pain, Nonadherence to medication, HTN (hypertension) Disposition: DC-01 TO HOME OR SELFCARE Is pt being admited?: No Does the pt Need Aspirin: No Condition: Stable Instructions: Diabetes Mellitus Type 2 in Adults (ED) Additional Instructions: FOLLOW UP WITH ONE MD WHEN YOU GO TAKE ALL MEDS SO THEY CAN EVALUATE MOMS RESPONSE TO THESE MEDS DIABETIC DIET DRINK A LOT OF WATER CHECK BLOOD SUGAR BEFORE EACH MEAL AND AT BEDTIME TAKE RECORD TO MD WITH YOU PRERNA FOR PAIN Prescriptions: AtorvaSTATin [Lipitor] 20 mg PO QHS #30 tab amLODIPine [Norvasc] 10 mg PO DAILY #30 carvediloL [Coreg] 3.125 mg PO BID #60 tablet Losartan [Cozaar] 50 mg PO QDAY #30 tablet metFORMIN [Glucophage] 500 mg PO BID 30 Days #60 each Aspirin EC [Halfprin EC] 81 mg PO QDAY #30 tablet. hydroCHLOROthiazide [HCTZ] 25 mg PO QDAY #30 tablet Ibuprofen [Motrin] 400 mg PO Q12H PRN #20 tablet PRN Reason: Pain , Severe (7-10) Insulin Degludec [Tresiba Flextouch U-100] 14 unit SQ DAILY #30 day Ergocalciferol [Vitamin D2] 1 cap PO QWEEK #4 capsule lisinopriL [Zestril TAB] 1 tab PO DAILY #30 each Referrals: MONAE OTERO [Other] - 3-5 Days SHANE FRANCES MD [Staff Physician] - 3-5 Days Time of Disposition: 12:07
[2019-10-11 10:03] LABS: Basophils % (Auto) 0.5 % (0.0-1.8); Eosinophils # (Auto) 0.2 K/mm3 (0.0-0.4); Eosinophils % (Auto) 2.2 % (0.0-4.3); Hematocrit 43.4 % (30.3-42.9); Hemoglobin 14.8 gm/dl (10.1-14.3); Lymphocytes # (Auto) 0.6 K/mm3 (1.2-5.4); Lymphocytes % (Auto) 8.7 % (13.4-35.0); Mean Corpuscular HGB Conc 34 % (30-34); Mean Corpuscular Volume 88 fl (79-97); Monocytes # (Auto) 0.4 K/mm3 (0.0-0.8); Monocytes % (Auto) 5.7 % (0.0-7.3); Platelet Count 162 K/mm3 (140-440); Red Blood Count 4.96 M/mm3 (3.65-5.03); Red Cell Distribution Width 13.9 % (13.2-15.2)
--- NOTE | 2019-10-11 10:19 | XRay Report ---
RIGHT FEMUR HISTORY: Pain after fall. COMPARISON: None. TECHNIQUE: 1 view of the right femur obtained. FINDINGS: Bones: No fracture or dislocation. Joint spaces: Moderate osteoarthritis at the hip and the knee. Soft tissues: No significant abnormality. Additional findings: None. IMPRESSION: 1. Osteoarthritis and no apparent traumatic injury. Signer Name: Jose Marx MD Signed: 10/11/2019 10:15 AM Workstation Name: [id number]
--- NOTE | 2019-10-11 10:21 | XRay Report ---
PELVIS HISTORY: Fall and pain. COMPARISON: None. TECHNIQUE: AP radiograph(s) of the pelvis obtained. FINDINGS: Bones: No fracture or dislocation. Joint spaces: Moderate osteoarthritis of the hips. Soft Tissues: No significant abnormality. Additional findings: None. IMPRESSION: 1. No acute abnormality. Signer Name: Jose Marx MD Signed: 10/11/2019 10:16 AM Workstation Name: [id number]
[2019-10-11 10:24] LABS: Alanine Aminotransferase 13 units/L (7-56); Albumin 3.3 g/dL (3.9-5); BUN/Creatinine Ratio 41; Blood Urea Nitrogen 33 mg/dL (7-17); Hemolysis Index 5
[2019-10-11 11:41] LABS: Bilirubin,Urine NEG (Negative); Blood,Urine NEG (Negative); Color,Urine Yellow (Yellow); Mucus,Urine FEW /HPF; Urobilinogen,Urine < 2.0 mg/dL (<2.0)
[2019-10-11] MEDS ORDERED: INSULIN GLARGINE 100 UNITS/ML SUB-Q ONE (13:00)
[2019-10-11 13:56] VITALS: BP 161/81
== END 2019-10-11 14:12 | disposition home or self-care (01) ==
LOC: ED 09:06
DX: E11.65 Type 2 diabetes mellitus with hyperglycemia (principal); M25.559 Pain in unspecified hip; M79.606 Pain in leg, unspecified; E66.9 Obesity, unspecified; I10 Essential (primary) hypertension; E78.5 Hyperlipidemia, unspecified; Z79.899 Other long term (current) drug therapy; Z68.23 Body mass index [BMI] 23.0-23.9, adult; Z91.19 Patient's noncompliance with other medical treatment and regimen; Z90.710 Acquired absence of both cervix and uterus; Z91.81 History of falling
CPT/HCPCS: 36415; 72170; 73551; 80053; 81001; 82805; 82962; 85025; 96361; 96372; 96374; 96376; 99284; J7030; J1815

== ENCOUNTER 2019-10-14 15:13 | Emergency (ER) | payer MEDICARE ==
[2019-10-14] MEDS ORDERED: DEXTROSE 50% IN WATER (25GM) 50 ML SYRINGE IV PRN (15:25)
--- NOTE | 2019-10-14 15:29 | Emergency Department Report ---
ED General Adult HPI - General Chief complaint: Altered Mental Status Stated complaint: POSS CVA Time Seen by Provider: 10/14/19 15:23 Source: family, EMS (Verbal report received from EMS. EMS documentation not available at time of chart dictation ), RN notes reviewed, old records reviewed Mode of arrival: Stretcher Limitations: Altered Mental Status, Physical Limitation - History of Present Illness Initial comments: Patient is a 74-year-old female. Her past medical history is complex, including diabetes, hypertension, high cholesterol, and history of atypical chest pain, with a unremarkable cardiac catheterization in the past. She is brought to the hospital by EMS for weakness, altered mental status, possible code stroke. As per EMS and daughter, last known well time is 9:00 last night. Please note that the patient was seen in this department a few days ago for generalized medical complaints, including hip pain, and hyperglycemia, was medically optimized and discharged with prescription refills. As per her daughter, who provides all of the history, patient was in her usual state of health last night. This morning, the patient was found to bed, not responsive. As per her daughter, the patient is typically able to ambulate without significant help, and is typically alert and oriented. EMS reports that patient is hypoglycemic in the field, and this is corrected. Upon arrival to the emergency room, the patient is somnolent. She follows commands, but has weakness on her left side. The patient is not able to describe exacerbating or relieving factors, or qualitative nature of her symptoms. A noncontrast CT scan of the brain showed no brain bleed, but presumed subacute right-sided infarct. Accu-Chek was 180. As per her daughter, yesterday, there was no nausea, vomiting, diarrhea, cough or urinary symptoms that she is aware of. -: This morning Quality: other Consistency: other Improves with: other Worsens with: other Associated Symptoms: other - Related Data Previous Rx's Medication Instructions Recorded Last Taken Type Aspirin EC [Halfprin EC] 81 mg PO QDAY #30 tablet. 10/11/19 Unknown Rx AtorvaSTATin [Lipitor] 20 mg PO QHS #30 tab 10/11/19 Unknown Rx Ergocalciferol [Vitamin D2] 1 cap PO QWEEK #4 capsule 10/11/19 Unknown Rx Ibuprofen [Motrin] 400 mg PO Q12H PRN #20 tablet 10/11/19 Unknown Rx Insulin Degludec [Tresiba 14 unit SQ DAILY #30 day 10/11/19 Unknown Rx Flextouch U-100] Losartan [Cozaar] 50 mg PO QDAY #30 tablet 10/11/19 Unknown Rx amLODIPine [Norvasc] 10 mg PO DAILY #30 10/11/19 Unknown Rx carvediloL [Coreg] 3.125 mg PO BID #60 tablet 10/11/19 Unknown Rx hydroCHLOROthiazide [HCTZ] 25 mg PO QDAY #30 tablet 10/11/19 Unknown Rx lisinopriL [Zestril TAB] 1 tab PO DAILY #30 each 10/11/19 Unknown Rx metFORMIN [Glucophage] 500 mg PO BID 30 Days #60 each 10/11/19 Unknown Rx Allergies Allergy/AdvReac Type Severity Reaction Status Date / Time No Known Allergies Allergy Verified 10/11/19 09:32 ED Review of Systems ROS: Stated complaint: POSS CVA Other details as noted in HPI Comment: Unobtainable due to pts medical conditions (Patient not speaking, review of systems per family, please see history of present illness) ED Past Medical Hx - Past Medical History Hx Hypertension: Yes Hx Diabetes: Yes - Surgical History Additional Surgical History: Hysterectomy - Social History Smoking Status: Never Smoker Substance Use Type: None - Medications Home Medications: Home Medications Medication Instructions Recorded Confirmed Last Taken Type Aspirin EC [Halfprin EC] 81 mg PO QDAY #30 tablet. 10/11/19 Unknown Rx AtorvaSTATin [Lipitor] 20 mg PO QHS #30 tab 10/11/19 Unknown Rx Ergocalciferol [Vitamin D2] 1 cap PO QWEEK #4 capsule 10/11/19 Unknown Rx Ibuprofen [Motrin] 400 mg PO Q12H PRN #20 tablet 10/11/19 Unknown Rx Insulin Degludec [Tresiba 14 unit SQ DAILY #30 day 10/11/19 Unknown Rx Flextouch U-100] Losartan [Cozaar] 50 mg PO QDAY #30 tablet 10/11/19 Unknown Rx amLODIPine [Norvasc] 10 mg PO DAILY #30 10/11/19 Unknown Rx carvediloL [Coreg] 3.125 mg PO BID #60 tablet 10/11/19 Unknown Rx hydroCHLOROthiazide [HCTZ] 25 mg PO QDAY #30 tablet 10/11/19 Unknown Rx lisinopriL [Zestril TAB] 1 tab PO DAILY #30 each 10/11/19 Unknown Rx metFORMIN [Glucophage] 500 mg PO BID 30 Days #60 each 10/11/19 Unknown Rx ED Physical Exam - General Limitations: Altered Mental Status, Physical Limitation General appearance: lethargic - Head Head exam: Present: atraumatic, normocephalic - Eye Eye exam: Present: normal appearance - ENT ENT exam: Present: mucous membranes dry, normal external ear exam - Neck Neck exam: Present: normal inspection, full ROM - Respiratory Respiratory exam: Present: decreased breath sounds. Absent: respiratory distress - Cardiovascular Cardiovascular Exam: Present: regular rate, normal rhythm, normal heart sounds. Absent: bradycardia, tachycardia, irregular rhythm, systolic murmur, diastolic murmur, rubs, gallop - GI/Abdominal GI/Abdominal exam: Present: soft, normal bowel sounds. Absent: distended, tenderness, guarding, rebound, rigid, pulsatile mass - External exam: Present: normal external exam, other (Chaperoned by nurse Christiano Gaitan) - Extremities Exam Extremities exam: Present: normal inspection, other (2+ pulses noted in the bilateral upper and lower extremities. There is no palpable cord. negative Homans sign. Muscular compartments are soft. The pelvis is stable.) - Back Exam Back exam: Present: normal inspection. Absent: tenderness, CVA tenderness (R), CVA tenderness (L), paraspinal tenderness, vertebral tenderness - Neurological Exam Neurological exam: Present: altered, other (The patient is awake. The patient is nonverbal. She withdraws her bilateral lower extremities to painful stimuli, and is able to squeeze with her right arm. She does not move her left arm. There is no obvious facial droop. Unable to perform detailed cranial nerve examination secondary to patient not being able to participate.) - Skin Skin exam: Present: warm, dry, intact, normal color. Absent: rash ED Course Vital Signs 10/14/19 10/14/19 16:39 16:53 Temperature 98.5 F Pulse Rate 80 Respiratory 16 Rate Blood Pressure 144/95 [Left] O2 Sat by Pulse 100 Oximetry - Reevaluation(s) Reevaluation #1: 10/14/19 16:03 Differential diagnosis, including not limited to: Stroke, pneumonia, urinary tract infection, hypoglycemia Assessment and plan: 74-year-old female, last known well time last night, presenting more than 4.5 hours after symptom onset, with history of hypoglycemia, now resolved, with history and physical suggesting a subacute stroke. Not a TPA candidate because of the aforementioned reasons. CT scan head and neck have been emergently requested with IV contrast to assess for large vessel occlusion. Discussed with the patient family, who verbalizes understanding. IV fluids ordered, swallow screen ordered, x-ray of the chest unremarkable, urinalysis pending. Reassess after initial data points, triage and disposition will depend on results of CT angiogram. Reevaluation #2: 10/14/19 16:53 we are concerned about a large vessel occlusion. An emergent CT angiogram was obtained, of the head and neck, suggestive of large vessel occlusion in the internal carotid artery. Simultaneously, we have engaged in discussion with stroke neurology at [facility] for treatment of presumed large vessel occlusion, discussing with Dr. Rocky Cooper He has accepted the patient as a transfer. Discussed this with the patient's daughter, who has given verbal consent for her personal phone number to be shared with the aforementioned neurology specialist. Aspirin is recommended as is 180 mg of Brilinta. Patient has failed her swallow screen, therefore NG tube will be ordered, this is discussed with patient's daughter, and nursing team, who have verbalized understanding. Discussed CT angiogram findings with the aforementioned neurologist as well. Patient has an emergency medical condition which cannot be definitively managed at this hospital, and she requires transfer to higher level of care for services not available at this facility, specifically interventional neurology for evaluation and treatment of large vessel occlusion, causing symptomatic stroke, and a patient who is typically functional. 10/14/19 16:56 ED Medical Decision Making - Lab Data Result diagrams: 10/14/19 15:50 10/14/19 15:50 - EKG Data 10/14/19 16:02 EKG today shows a sinus rhythm, with a normal axis, premature atrial complex, interventricular conduction delay, nonspecific ST abnormality, the EKG is abnormal, there is a borderline left bundle branch block morphology, the MO intervals within normal limits, the QTC is 528 ms, this is grossly unchanged from prior EKG from 01/2019 Not consistent with STEMI - Radiology Data Radiology results: report reviewed, image reviewed interpreted by me: X-ray of the chest is negative for acute disease. DJD is noted. Report Date: 2019-10-14 Report Status: Finalized [facility] [address] [place] [address] Cat Scan Report Signed Patient: LATRICE BARRETO MR#: [id number] 81 : 1945 Acct:[id number] Age/Sex: 74 / F ADM Date: 10/14/19 Loc: ED Attending Dr: Ordering Physician: ANA GARCIA MD Date of Service: 10/14/19 Procedure(s): CT head/brain wo con Accession Number(s): [id number] cc: ANA GARCIA MD CT head/brain wo con INDICATION: Left-sided weakness.. TECHNIQUE: Head CT without contrast. All CT scans at this location are performed using CT dose reduction for ALARA by means of automated exposure control. COMPARISON: None available. FINDINGS: There is focal cortical hypoattenuation in the right frontoparietal high convexity and also in the right posterior temporal lobe concerning for ac erik infarct. There is no hemorrhage or adverse mass effect. There is no hydrocephalus. IMPRESSION: 1. Findings concerning for early right MCA territory infarct. No hemorrhage or adverse mass effect. Findings discussed with Dr. Garcia at 2:30 PM central time on 10/14/2019. Signer Name: Thomas Thompson MD Signed: 10/14/2019 3:34 PM Workstation Name: [id number] Transcribed By: GONZALO Dictated By: Thomas Thompson MD Electronically Authenticated By: Thomas Thompson MD Signed Date/Time: 10/14/19 1534 Critical Care Time: Yes Critical care time in (mins) excluding proc time.: 60 Critical care attestation.: If time is entered above; I have spent that time in minutes in the direct care of this critically ill patient, excluding procedure time. ED Disposition Clinical Impression: Cerebrovascular accident, large vessel Disposition: [id number]-TRM GEN HOSP IP Is pt being admited?: No Does the pt Need Aspirin: Yes Condition: Critical Referrals: PRIMARY CARE, [Primary Care Provider] - 3-5 Days
--- NOTE | 2019-10-14 15:36 | Consultation ---
History of Present Illness History of present illness: [facility] Date of Service:10/14/2019 15:20:50 Impression: RO Acute Ischemic Stroke Comments: 74 YO F with h/o HTN was found unresponsive this morning with left sided weakness, CT shows acute/subacute stroke in R MCA. Metrics: Last Known Well: 10/13/2019 21:00:00 [facility] Notification Time: 10/14/2019 15:20:12 Arrival Time: 10/14/2019 15:13:00 Stamp Time: 10/14/2019 15:20:50 Time First Login Attempt: 10/14/2019 15:27:11 Video Start Time: 10/14/2019 15:27:11 Symptoms: unresponsive, left sided weakness NIHSS Start Assessment Time: 10/14/2019 15:29:47 Patient is not a candidate for tPA. Patient was not deemed candidate for tPA thrombolytics because of Last Well Known Above 4.5 Hours. Video End Time: 10/14/2019 15:34:21 CT head was reviewed and results were: Developing hypodensity in Rt MCA territory Clinical Presentation is Suggestive of Large Vessel Occlusive Disease, Recommendations are as Follows CTA Head and Neck. Our recommendations are outlined below. Recommendations: Activate Stroke Protocol Admission/Order Set Stroke/Telemetry Floor Neuro Checks Bedside Swallow Eval DVT Prophylaxis IV Fluids, Normal Saline Head of Bed Below 30 Degrees Euglycemia and Avoid Hyperthermia (PRN Acetaminophen) Start Antiplatelet Therapy Daily Recommended Scan: MRI Head Lipid Panel to Be Obtained, if Not Done in the Last Three Months Therapies: Physical Therapy, Occupational Therapy, Speech Therapy Assessment When Applicable Dysphaghia Screen: Swallow Evaluation, Bedside NPO Until Swallow Evaluation Disposition: Follow up with Teleneurology Follow up Sign Out: Discussed with Emergency Department Provider History of Present Illness: Patient is a 74 year old Female. Patient was brought by EMS for symptoms of unresponsive, left sided weakness 74 YO F with h/o HTN was found unresponsive this morning with left sided weakness. She is not answering questions. LKW was last night. CT head was reviewed. Examination: 1A: Level of Consciousness - Requires repeated stimulation to arouse+ 2 1B: Ask Month and Age - Could Not Answer Either Question Correctly+ 2 1C: Blink Eyes & Squeeze Hands - Performs 0 Tasks+ 2 2: Test Horizontal Extraocular Movements - Partial Gaze Palsy: Can Be Overcome+ 1 3: Test Visual [place] - No Visual Loss+ 0 4: Test Facial Palsy (Use Grimace if Obtunded) - Normal symmetry+ 0 5A: Test Left Arm Motor Drift - No Movement+ 4 5B: Test Right Arm Motor Drift - No Drift for 10 Seconds+ 0 6A: Test Left Leg Motor Drift - No Movement+ 4 6B: Test Right Leg Motor Drift - No Movement+ 4 7: Test Limb Ataxia (FNF/Heel-Keith) - No Ataxia+ 0 8: Test Sensation - Normal; No sensory loss+ 0 9: Test Language/Aphasia - Normal; No aphasia+ 0 10: Test Dysarthria - Normal+ 0 11: Test Extinction/Inattention - No abnormality+ 0 NIHSS Score:19 Patient was informed the Neurology Consult would happen via TeleHealth consult by way of interactive audio and video telecommunications and consented to receiving care in this manner. Due to the immediate potential for life-threatening deterioration due to underlying acute neurologic illness, I spent 35 minutes providing critical care. This time includes time for face to face visit via telemedicine, review of medical records, imaging studies and discussion of findings with providers, the patient and/or family. Dr Zhou Palacio [facility] Case [id number] Medications and Allergies Allergies Allergy/AdvReac Type Severity Reaction Status Date / Time No Known Allergies Allergy Verified 10/11/19 09:32 Home Medications Medication Instructions Recorded Confirmed Last Taken Type Aspirin EC [Halfprin EC] 81 mg PO QDAY #30 tablet. 10/11/19 Unknown Rx AtorvaSTATin [Lipitor] 20 mg PO QHS #30 tab 10/11/19 Unknown Rx Ergocalciferol [Vitamin D2] 1 cap PO QWEEK #4 capsule 10/11/19 Unknown Rx Ibuprofen [Motrin] 400 mg PO Q12H PRN #20 tablet 10/11/19 Unknown Rx Insulin Degludec [Tresiba 14 unit SQ DAILY #30 day 02/12/20 Unknown Rx Flextouch U-100] Losartan [Cozaar] 50 mg PO QDAY #30 tablet 10/11/19 Unknown Rx amLODIPine [Norvasc] 10 mg PO DAILY #30 10/11/19 Unknown Rx carvediloL [Coreg] 3.125 mg PO BID #60 tablet 10/11/19 Unknown Rx hydroCHLOROthiazide [HCTZ] 25 mg PO QDAY #30 tablet 10/11/19 Unknown Rx lisinopriL [Zestril TAB] 1 tab PO DAILY #30 each 10/11/19 Unknown Rx metFORMIN [Glucophage] 500 mg PO BID 30 Days #60 each 10/11/19 Unknown Rx Active Meds: Active Medications Dextrose (D50w (25gm) Syringe) 50 ml IV Q30MIN PRN; Protocol PRN Reason: Hypoglycemia
--- NOTE | 2019-10-14 15:38 | Cat Scan Report ---
CT head/brain wo con INDICATION: Left-sided weakness.. TECHNIQUE: Head CT without contrast. All CT scans at this location are performed using CT dose reduction for ALA RA by means of automated exposure control. COMPARISON: None available. FINDINGS: There is focal cortical hypoattenuation in the right frontoparietal high convexity and also in the ri ght posterior temporal lobe concerning for acute infarct. There is no hemorrhage or adverse mass effe ct. There is no hydrocephalus. IMPRESSION: 1. Findings concerning for early right MCA territory infarct. No hemorrhage or adverse mass effect. Findings discussed with Dr. Garcia at 2:30 PM central time on 10/14/2019. Signer Name: Thomas Thompson MD Signed: 10/14/2019 3:34 PM Workstation Name: [id number]
[2019-10-14 16:05] LABS: Basophils % (Auto) 0.2 % (0.0-1.8); Eosinophils % (Auto) 0.2 % (0.0-4.3); Hematocrit 53.2 % (30.3-42.9); Hemoglobin 18.1 gm/dl (10.1-14.3); Lymphocytes # (Auto) 0.8 K/mm3 (1.2-5.4); Lymphocytes % (Auto) 7.3 % (13.4-35.0); Mean Corpuscular HGB Conc 34 % (30-34); Mean Corpuscular Volume 88 fl (79-97); Monocytes # (Auto) 0.6 K/mm3 (0.0-0.8); Monocytes % (Auto) 5.2 % (0.0-7.3); Red Blood Count 6.03 M/mm3 (3.65-5.03); Red Cell Distribution Width 13.9 % (13.2-15.2)
--- NOTE | 2019-10-14 16:14 | XRay Report ---
CHEST 1 VIEW INDICATION / CLINICAL INFORMATION: ams. COMPARISON: 02/14/2019 FINDINGS: SUPPORT DEVICES: None. HEART / MEDIASTINUM: No significant abnormality. LUNGS / PLEURA: No significant pulmonary or pleural abnormality. No pneumothorax. ADDITIONAL FINDINGS: No significant additional findings. IMPRESSION: 1. No acute findings. No interval change. Signer Name: Franny Garza MD Signed: 10/14/2019 4:10 PM Workstation Name: [id number]
[2019-10-14 16:25] LABS: Alanine Aminotransferase 18 units/L (7-56); Albumin 3.9 g/dL (3.9-5); BUN/Creatinine Ratio 17; Blood Urea Nitrogen 12 mg/dL (7-17); Hemolysis Index 45
[2019-10-14 16:27] LABS: Bilirubin,Direct 0.2 mg/dL (0-0.2)
--- NOTE | 2019-10-14 16:56 | Cat Scan Report ---
CTA HEAD AND NECK WITH CONTRAST HISTORY: Stroke COMPARISON: None. TECHNIQUE: All CT scans at this location are performed using CT dose reduction for ALARA by means of automated exposure control.. 3-D/MIP reformats postprocessed. Percentage stenosis is determined by d irect quantitative measurements of diseased internal carotid artery diameter compared with normal dis cyrus internal carotid artery reference segments or by criteria similar to NASCET where applicable. CONTRAST: 100 ml of Omnipaque 350 FINDINGS: CTA HEAD: Intracranial vertebral arteries: No significant abnormality. Basilar artery: No significant abnormality. Posterior cerebral arteries: No significant abnormality. Intracranial internal carotid arteries: Complete occlusion of the right internal carotid artery throu gh the ICA terminus. Anterior cerebral arteries: No significant abnormality. Middle cerebral arteries: There is flow in the right MCA, although it is relatively diminished relati ve to the left side. There is mild atherosclerotic calcification in the left intracranial ICA without significant stenosis. Dural venous sinuses:Not optimally opacified. No significant abnormality. CTA NECK: Aortic arch: 4 vessel branching pattern with origin of the left vertebral artery between the left com mon carotid and left subclavian arteries. Cervical vertebral arteries: No significant abnormality. Common carotid arteries: There is a linear filling defect in the superior aspect of the right cervica l common carotid artery that may indicate arterial dissection. Cervical internal carotid arteries: There is a complete occlusion of the right internal carotid arter y about 2 cm above the carotid bifurcation with no significant flow identified throughout the neck. T here is mild atherosclerotic calcification the proximal left ICA without significant stenosis. Additional findings: None. IMPRESSION: 1. Complete occlusion of the right internal carotid artery with a linear filling defect in the superi or aspect of the right common carotid artery that may indicate carotid dissection and subsequent thro mbosis as the etiology of the right ICA occlusion. 2. There is minimal collateral flow in the right MCA branches intracranially but the flow is signific antly diminished relative to the left side. Findings discussed with Dr. Garcia at 3:50 PM central time on 10/14/2019. Signer Name: Thomas Thompson MD Signed: 10/14/2019 4:51 PM Workstation Name: [id number]
[2019-10-14] MEDS ORDERED: ASPIRIN 325 MG TAB PO ONE (16:58)
[2019-10-14] MEDS ORDERED: MORPHINE 4 MG/1 ML INJ IV ONE (16:59)
[2019-10-14] MEDS ORDERED: LIDOCAINE VISCOUS 2% 15 ML ORAL LIQD PO ONE (17:00)
[2019-10-14 17:08] LABS: Mean Platelet Volume 10.4 fl (6-12); Platelet Count 199 K/mm3 (140-440)
[2019-10-14 17:28] VITALS: BP 194/62
[2019-10-14] MEDS ORDERED: ASPIRIN 300 MG RECT SUPP PR ONE ×2 (17:45→17:56)
[2019-10-14] MEDS ORDERED: TICAGRELOR 90 MG TAB PO ONE (18:00)
== END 2019-10-14 17:59 | disposition short-term general hospital (02) ==
LOC: ED 15:13
DX: I63.89 Other cerebral infarction (principal); I10 Essential (primary) hypertension; E11.9 Type 2 diabetes mellitus without complications; Z90.710 Acquired absence of both cervix and uterus; Z79.1 Long term (current) use of non-steroidal anti-inflammatories (NSAID); Z79.899 Other long term (current) drug therapy
CPT/HCPCS: 36415; 70450; 70496; 70498; 71045; 80048; 80076; 82962; 84443; 84484; 85025; 85610; 85670; 85730; 93005; 93010; 96374; 99291; J2270; Q9967; 80320; G0480